=== PATIENT | female | born 1965 | race Caucasian/White ===

== ENCOUNTER 2023-04-07 09:26 | Outpatient (OUT) | payer OTHER, SELFPAY ==
--- NOTE | 2023-04-07 09:31 | CT_ITS ---
The [address] [address] Patient Name: JUNIOR ASENCIO MRN: [id number] date: 1965 Sex: F Assigned Patient Location: CT Current Patient Location: CT Accession/Order Number: [id number] Exam Date: 04/07/2023 09:38 Report Date: 04/07/2023 15:26 At the request of: MOOKIE LAGOS Procedure: CT lung screening low-dose EXAMINATION: CT lung screening low-dose HISTORY: Nicotine Dependence F17.210 COMPARISON: No relevant comparison available. TECHNIQUE: Axial, Coronal, and Sagittal images were created without the administration of IV contrast material. Dose reduction techniques were achieved by using automated exposure control and/or adjustment of mA and/or kV according to patient size and/or use of iterative reconstruction technique. FINDINGS: LUNGS: Several areas demonstrate collections of numerous 2-3 mm round nodular opacities, most likely alveolar infiltrates. Mild emphysematous changes bilaterally. Trace amount of bronchiectasis and mucous plugging within right middle lobe and left lower lobe medial basilar segment. PLEURA: No mass, effusion, or pneumothorax. VASCULATURE: No abnormality. EUSEBIA: Minimal adenopathy. MEDIASTINUM: Minimal adenopathy. CARDIAC: No enlargement, pericardial thickening, or significant calcification. AORTA: No aneurysm or dissection. CHEST WALL: No mass or axillary adenopathy BONES: No bone lesion or fracture. LIMITED ABDOMEN: No suspicious findings. Limited images of the upper abdomen. OTHER: Negative. CT/CT lung screening low-dose IMPRESSION: 1. Lung-RADS Category 3- Probably benign. Probably benign finding(s)- short term follow up suggested; includes nodules with a low likelihood of becoming a clinically active cancer. Six month LDCT. 2. Suspect mild diffuse bilateral pulmonary infiltrates/infectious etiology, and likely mild reactive lymphadenopathy. Electronically authenticated by: RUTH BELTRAN Date: 04/07/2023 15:26
== END 2023-04-07 09:27 | disposition home or self-care (01) ==
LOC: CT 09:26
PROVIDERS: PCP Family Medicine; Visit Provider Family Medicine
DX: F17.210 Nicotine dependence, cigarettes, uncomplicated (principal)
CPT/HCPCS: 71271

== ENCOUNTER 2023-11-13 09:05 | Outpatient (OUT) | payer OTHER, SELFPAY ==
--- NOTE | 2023-11-13 09:09 | XR_ITS ---
The [address] [address] Patient Name: JUNIOR ASENCIO MRN: [id number] date: 1965 Sex: F Assigned Patient Location: [facility] Current Patient Location: [facility] Accession/Order Number: [id number] Exam Date: 11/13/2023 09:22 Report Date: 11/13/2023 10:04 At the request of: MOOKIE LAGOS Procedure: XR chest 2V PROCEDURE: XR chest 2V DATE: 11/13/2023 8:22 AM CDT COMPARISONS: Chest CT from 04/07/2023. Chest x-ray from 05/07/2022 CLINICAL INDICATION: 57 years Female Bronchitis FINDINGS: The cardiomediastinal silhouette and pulmonary vasculature are within normal limits. There are a few scattered patchy areas of increased interstitial markings and slight scattered diffuse increased interstitial markings likely representing chronic lung changes. These findings are best seen in the upper lateral right lung and the upper medial left lung. There is no evidence of pleural effusion or pneumothorax. XR/XR chest 2V IMPRESSION: Findings most consistent with some scattered chronic lung changes. No consolidating infiltrates to suggest pneumonia. Stable chest. Electronically authenticated by: THA TRAVIS Date: 11/13/2023 10:04
== END 2023-11-13 09:06 | disposition home or self-care (01) ==
PROVIDERS: PCP Family Medicine; Visit Provider Family Medicine
DX: J40 Bronchitis, not specified as acute or chronic (principal)
CPT/HCPCS: 71046

== ENCOUNTER 2023-12-29 14:56 | Outpatient (OUT) | payer OTHER, SELFPAY ==
--- NOTE | 2023-12-29 14:59 | CT_ITS ---
The [address] [address] Patient Name: JUNIOR ASENCIO MRN: [id number] date: 1965 Sex: F Assigned Patient Location: CT Current Patient Location: Accession/Order Number: [id number] Exam Date: 12/29/2023 15:03 Report Date: 12/30/2023 10:30 At the request of: MOOKIE LAGOS Procedure: CT chest wo con EXAMINATION: CT chest wo con, 12/29/2023 3:03 PM EDT HISTORY: multiple pulmonary nodules R91.8 COMPARISON: 04/07/2023. TECHNIQUE: CT scan of the chest was performed without IV contrast. CT dose reduction technique was used, including Automated Exposure Control. FINDINGS: CORONARY ARTERIES: Coronary calcifications are mild. Heart size is normal. No pericardial effusion. Normal thoracic vasculature. No thoracic lymphadenopathy. Central tracheobronchial tree is patent. No pleural effusion or pneumothorax. 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 Scattered areas of endobronchial mucous plugging similar to prior. Focal traction bronchiectasis and some scattered mucus plugging in the right middle lobe is again seen. Bones and soft tissues: No suspicious bone findings. Degenerative changes throughout the thoracic spine. Partially imaged upper abdomen: Limited. Fat-containing adenoma left adrenal gland, measuring [address]/CT chest wo con IMPRESSION: Findings of chronic and waxing/waning infectious bronchiolitis throughout the lungs, and some scattered endobronchial mucous plugging, overall not significantly changed. No suspicious pulmonary nodule by size criteria. Lung RADS 2 Electronically authenticated by: TAMARA ROUSSEAU Date: 12/30/2023 10:30
== END 2023-12-29 14:57 | disposition home or self-care (01) ==
LOC: CT 14:56
PROVIDERS: PCP Family Medicine; Visit Provider Family Medicine
DX: R91.8 Other nonspecific abnormal finding of lung field (principal); J84.89 Other specified interstitial pulmonary diseases
CPT/HCPCS: 71250

== ENCOUNTER 2024-03-31 09:03 | Outpatient (OUT) | payer OTHER, SELFPAY ==
--- OUTSIDE RECORDS SUMMARY | 2024-03-31 09:12 | XMS_ITS | CCD ---
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 Name Role Phone TREMAINE ., DR GARG Admitting Unavailable TREMAINE ., DR GARG Attending Unavailable HOUSE, DR AQUINO Primary Care Unavailable [place], DR TAMMIE Freedman Consulting Unavailable TREMAINE ., DR GARG Consulting Unavailable Gabriella, Demond Consulting Unavailable FRANKLIN, DR AQUINO Admitting Unavailable HOUSE, DR AQUINO Attending Unavailable HOUSE, DR AQUINO Primary Care Unavailable [place], DR TAMMIE Freedman Consulting Unavailable HOUSE, DR AQUINO Consulting Unavailable HOUSE, DR AQUINO Admitting Unavailable HOUSE, DR AQUINO Attending Unavailable HOUSE, DR AQUINO Primary Care Unavailable FRANKLIN, DR AQUINO Consulting Unavailable TREMAINE ., DR GARG Admitting Unavailable TREMAINE ., DR GARG Attending Unavailable HOUSE, DR AQUINO Primary Care Unavailable TREMAINE ., DR GARG Consulting Unavailable House, Macho Rangel Primary Care Physician PALAK RUDD Attending Unavailable PALAK RUDD Attending Unavailable Forest TORRES Referring Unavailable Carley Jackson Unavailable Beverley Anaya Unavailable Allergies Allergy Classification Reported Allergen(s) Allergy Type Date of Onset Reaction(s) Facility (1 source) No Known Medication Allergies; Translations: [No Known Medication Allergies] Propensity to adverse reactions (disorder) [facility] Repository Medications Current Medications Medication Drug Class(es) Dates Sig (Normalized) Sig (Original) ARIPiprazole 10 mg oral tablet (9 sources) Atypical Antipsychotic Start: 11-12-2023 End: 03-03-2024 take 1 tablet by mouth once daily Aripiprazole (Abilify) 10 mg tablet Active 10 MG PO Daily 90 March 03, 2024 10:58am Start: 10-30-2022 aripiprazole 1 0 mg Tab Refills(s) 0 Start Date: 10/30/22 Status: Ordered Calcium 1200 8978-7626 MG-UNIT (4 sources) take 1 tablet by mouth once daily Calcium 1200 5923-2538 MG-UNIT 1 tablet Orally Once a day Active Cpap (Continuous Positive Airway Pressure) (2 sources) Start: 03-24-2024 Cpap (Continuous Positive Airway Pressure) Active 0 .Route March 24, 2024 9:46am As directed [facility] Start: 03-24-2024 End: 03-24-2024 Cpap (Continuous Positive rway Pressure) Discontinued 0 .Route March 24, 2024 12:00am March 24, 2024 9:46am As directed dextromethorphan hydrobromide 15 mg / guaiFENesin 400 mg / pseudoephedrine hydrochloride 60 mg oral tablet (1 source) alpha-Adrenergic Agonist, Uncompetitive I-ekmhnv-H-aspartate Receptor Antagonist, Sigma-1 Agonist Start: 06-04-2023 take 4 tablets by mouth every twenty-four hours as needed Capmist DM 60-15-400 MG as needed Orally every 4-6 hours as needed, max 4 tablets in 24 hours for 5 days May, Active etodolac 500 mg oral tablet (2 sources) Nonsteroidal Anti-inflammatory Drug Start: 10-30-2022 etodolac 500 mg Tab Refills(s) 0 Start Date: 10/30/22 Status: Ordered levoFLOXacin 500 mg oral tablet (2 sources) Quinolone Antimicrobial Start: 10-30-2022 levofloxacin 500 mg Tab Refills(s) 0 Start Date: 10/30/22 Status: Ordered methylPREDNISolone 4 mg tab dosepak (2 sources) Start: 10-30-2022 methylPREDNISolone 4 mg tab dosepak Refills(s) 0 Start Date: 10/30/22 Status: Ordered 24 hr oxybutynin chloride 5 mg extended release oral tablet (1 source) Cholinergic Muscarinic Antagonist Start: 11-17-2022 take 1 tablet by mouth once daily oxybutynin 5 mg ER Tab 5 mg = 1 tab(s), Oral, Daily, # 30 tab(s), Refills(s) 0, [facility]acy: [id number], 172, cm, 11/05/22 10:05:00 EDT, Height/Length Dosing, 80, kg, 11/05/22 10:05:00 EDT, Weight Dosing Start Date: 11/17/22 Status: Ordered predniSONE 20 mg oral tablet (1 source) Start: 06-04-2023 take 1 tablet by mouth every twelve hours prednisone 20 MG 1 tablet Orally BID for 5 May, Active vilazodone hydrochloride 20 mg oral tablet (10 sources) Start: 11-12-2023 End: 03-03-2024 take 20 mg by mouth once daily at mealtime Vilazodone Active 20 MG PO Daily March 03, 2024 10:58am must administer with a meal/food Start: 10-30-2022 vilazodone 10 mg oral tablet Refills(s) 0 Start Date: 10/30/22 Status: Ordered take 1 tablet by bam th every twenty-four hours Vilazodone HCl 20 MG 1 tablet with food Orally Once a day for 30 days Active Vit U01-Lwtxpiqofe-Wfqw-Rpjt (4 sources) Vit T54-Xjpqtzpt zg-Ddqu-Cvuk Active Completed/Discontinued Medications Medication Drug Class(es) Dates Sig (Normalized) Sig (Original) Azithromycin (1 source) Macrolide Antimicrobial Start: 4 End: 4 Azithromycin Discontinued 0 PO .COMPLEX November 13, 2023 12:00am March 23, 2024 1:58pm For 250 mg dose pack: take 500 mg today (day 1), then 250 mg for 4 days (days 2-5) PO Ketorolac (4 sources) Nonsteroidal Anti-inflammatory Drug, Cyclooxygenase Inhibitor Start: 6 Toradol per 15 mg Jun, 60 mg Methylprednisolone (5 sources) Corticosteroid Start: 4 End: 4 Methylprednisolone Discontinued 0 PO per package directions November 13, 2023 12:00am March 23, 2024 1:58pm PO PER PKG DIR for 6 days Start: 05-02-2014 Depo-Medrol 80 mg Apr, 80 mg 24 hr tolterodine tartrate 4 mg extended release oral capsule (6 sources) Cholinergic Muscarinic Antagonist Start: 11-12-2023 End: 03-24-2024 take 1 capsule by mouth once daily Tolterodine Discontinued 1 CAP PO Daily November 12, 2023 12:00am March 24, 2024 9:51am [employer] capsule Orally Once a day; Note: Source Status: Taking; Provider: Héctor Lowery ( ) take 1 capsule by [facility] every twenty-four hours Tolterodine Tartrate ER 4 MG 1 capsule Orally Once a day Active Problems Active Problems Problem Classification Problem Date Documented Da te Episodic/Chronic Chronic obstructive pulmonary disease and bronchiectasis (2 sources) Bronchiectasis; Translations: [Bronchiectasis, uncomplicated] 03-24-2024 Chronic Chronic obstructive pulmonary disease and bronchiectasis (3 sources) Bronchitis; Translations: [Bronchitis, not specified as acute or chronic] 11-13-2023 Episodic Essential hypertension (5 sources) Essential hypertension; Translations: [Essential (primary) hypertension] Chronic Genitourinary symptoms and ill-defined conditions (4 sources) Unspecified urinary incontinence; Translations: [Urinary incontinence] Onset: 11-05-2022 Chronic Immunizations and screening for infectious disease (1 source) Encounter for screening for human papillomavirus (HPV); Translations: [ENC SCREENING HUMAN PAPILLOMAVIRUS] Onset: 10-02-2022 Episodic Mood disorders (4 sources) Depressive disorder; Translations: [Bipolar disorder, unspecified] 11-05-2022 Chronic Other bone disease and musculoskeletal deformities (1 source) Other specified disorders of bone density and structure, unspecified site; Translations: [OTH D/O BONE DEN STRUCT UNS SITE] Onset: 10-14-2022 Episodic Other lower respiratory disease (2 sources) Shortness of breath; Translations: [Shortness of breath] Onset: 05-11-2022 03-24-2024 Episodic Other lower respiratory disease (2 sources) Multiple nodules of lung; Translations: [Other nonspecific abnormal finding of lung field] 11-10-2023 Episodic Other lower respiratory disease (1 source) Dyspnea; Translations: [Shortness of breath] 03-24-2024 Episodic Other lower respiratory disease (1 source) Abnormal findings on diagnostic imaging of lung; Translations: [Other nonspecific abnormal finding of lung field] 03-24-2024 Episodic Other lower respiratory disease (1 source) Other nonspecific abnormal finding of lung field; Translations: [Other nonspecific abnormal finding of lung field] 03-24-2024 Episodic Other screening for suspected conditions (not mental disorders or infectious disease) (1 source) CT of chest abnormal; Translations: [Abnormal findings on diagnostic imaging of other specified body structures] 01-15-2024 Chronic Other screening for suspected conditions (not mental disorders or infectious disease) (5 sources) Encounter for screening mammogram for malignant neoplasm of breast; Translations: [Encounter for screening for malignant neoplasm of cervix] Onset: 10-01-2022 Episodic Residual codes; unclassified (4 sources) Asymptomatic menopausal state; Translations: [ASYMPTOMATIC MENOPAUSAL STATE] Onset: 10-09-2022 Episodic Residual codes; unclassified (1 source) Family history of malignant neoplasm of breast; Translations: [FAMILY HX MALIG NEOPLASM OF BREAST] Onset: 10-14-2022 Episodic Substance-related disorders (9 sources) Nicotine dependence; Translations: [Nicotine dependence, cigarettes, uncomplicated] Chronic Substance-related disorders (2 sources) Marijuana user; Translations: [Cannabis use, unspecified, uncomplicated] 03-24-2024 Episodic Unclassified (3 sources) COUGH, UNSPECIFIED; Translations: [COUGH, UNSPECIFIED] Onset: 05-11-2022 Past or Other Problems Problem Classification Problem Date Documented Da te Episodic/Chronic Unclassified (1 source) COUGH, UNSPECIFIED; Translations: [COUGH, UNSPECIFIED] Onset: 05-07-2022 Unclassified (1 source) Contact with and (suspected) exposure to covid-19 Z20.822 Viral infection (1 source) COVID-19 Results Test Name Value Interpretation Reference Range Facility COVID/FLU RT-PCRon SARS-CoV-2 (COVID-19) RNA DAMARI+probe Ql (Unsp spec) Positive [facility] [employer] Other COVID/FLU RT-PCR Negative [facility] [employer] Other Quick Strepon 06-04-2023 S. pyogenes Org specific cx Ql (Throat) Negative [facility] Other Quick Strep [facility] [employer] Other Urology Office/Clinic Noteon 11-17-2022 Urology Office/Clinic Note Chief Complaint Pt is here for urinary leaking HPI Staff Tita is a 56 y.o. female new patient here for urinary leakage. Referred by Dr Forest Torres. Dysuria: denies Incomplete bladder emptying: denies Hematuria: denies Frequency: yes Urgency: yes Nocturia: 1x a night Stream: steady stream Leaking: yes Post void dripping: denies Wearing pads/ Depends: yes wears pads, changes 3-4x a day Urge incontinence: yes Stress incontinence: yes cough/sneeze Incontinence without Sensory Awareness: denies Abdominal pain: denies Flank pain: denies Sexual complaints: _ History of Present Illness staff HPI reviewed and agree. Review of Systems PHQ Score Initial Depression Screen Score: 0 no fever, chills, malaise, myalgia. no rash/lesions. no chest pain, palpitations, or SOB. no abdominal pain, nausea, vomiting. no unilateral calf swelling, redness, pain Physical Exam Vitals & Measurements HR: 67(Peripheral) BP: 132/82 HT: 68 in HT: 172 cm WT: 80 kg WT: 176 lb BMI: 27.04 General: nontoxic, NAD Mouth: moist mucosa Lungs: normal respiratory effort Cardio: regular rate, good distal perfusion Abdomen: nondistended, no suprapubic distention or tenderness, no CVA tenderness Neurologic: Grossly normal Skin: No rashes or suspicious lesions Assessment/Plan 1. Mixed stress and urge urinary incontinence (N39.46: Mixed incontinence) UA completed in office today shows no microhematuria or signs of infection. PVR 51ml. I went over the options for treatment for KRYSTYNA with the patient. We discussed conservative treatment with pelvic floor exercises with or without a physical therapist. We also discussed vaginal inserts such as anti-incontinence pessaries and the Impressa tampon. Definitive treatment including urethral bulking agents and mid-urethral sling were discussed as these are options offered by my colleagues. Details of each procedure, success rates, recovery/downtime expectations, and risks were discussed at length. We also spoke briefly about traditional slings with autologous fascia. This is also a very successful procedure without the use of synthetic mesh. It does however require a significantly longer recovery period and has a slightly higher risk of voiding dysfunction. And pt understands that it is not offered by our physicians so she would need referred elsewhere. Based on the above discussion the patient prefers to attempt home PFPT exercises. I went over the options for treatment for UUI with the patient. We discussed conservative management with avoidance of bladder irritants. Discussed medication management including anticholinergics and Myrbetriq. Myrbetriq is often preferable due to lower side effect profile, but most insurances don't cover it without trying anticholinergics first. Therefore we will start with Oxybutynin. Pt will start with lowest daily dose and slowly titrate up as pt tolerates. I explained the most common side effects are dry mouth, dry eyes, and constipation. We discussed OTC options to help with these side effects. Pt will stop medication and call office if side effects become intolerable. We did discuss that there is a documented potential side effect of mental status changes/confusion in the elderly, but that this risk is quite low. Pt and I agree that potential benefit outweigh risk at this time. OXYBUTYNIN 5MG ER pt will call in 1 month w update regarding side effects/dose. Orders: oxybutynin, 5 mg = 1 tab(s), Oral, Daily, # 30 tab(s), Refills(s) 0, Pharmacy: [facility] #[id number], 172, cm, 11/05/22 10:05:00 EDT, Height/Length Dosing, 80, kg, 11/05/22 10:05:00 EDT, Weight Dosing f/u 2 mos Follow-up No qualifying data available 2 mos Problem List/Past Medical History Ongoing Depression Mixed stress and urge urinary incontinence Historical Urinary leakage Procedure/Surgical History Cholecystectomy. Medications aripiprazole 10 mg Tab etodolac 500 mg Tab levofloxacin 500 mg Tab methylPREDNISolone 4 mg tab dosepak oxybutynin 5 mg ER Tab, 5 mg= 1 tab(s), Oral, Daily vilazodone 10 mg oral tablet Allergies No Known Medication Allergies Social History Tobacco 10 or more cigarettes (1/2 pack or more)/day in last 30 days Tobacco Use:. Never Smokeless Tobacco Use:. Cigarettes, Yes, 11/05/2022 Immunizations Vaccine Date Status SARS-CoV-2 (COVID-19) mRNA BNT-162b2 vax 09/19/2021 Recorded SARS-CoV-2 (COVID-19) mRNA BNT-162b2 vax 01/11/2021 Recorded SARS-CoV-2 (COVID-19) mRNA BNT-162b2 vax 12/21/2020 Recorded Normal [facility] Comment on above: Result Comment: Elec tronically Signed By: PALAK RUDD PA-C\arielle\Date and Time Signed: 11/17/22 09:41 EDT MG MAMM SCREEN 3D NORMAN CADon 10-09-2022 MG MAMM SCREEN 3D NORMAN CAD Patient: TITA MITCHELL Exam Date: 10/09/2022 : 1965 Gender:F Ordering : DR FOREST TORRES . Admission #: [id number] Family : Order #: [id number] CLICK HERE TO VIEW EXAM RADIOLOGY REPORT PROCEDURE: MAMMOGRAM SCREENING 3D BILATERAL CAD COMPARISON: MG MAMM SCREEN 3D NORMAN CAD, 04/12/2021. MG MAMM SCREEN NORMAN W CAD, 10/10/2016. INDICATIONS: Screening mammography Calculator Name NCI Breast Cancer Risk Assessment Tool 5 Year Breast Cancer Risk 2.20% Lifetime Breast Cancer Risk 15.40% Personal Breast Cancer No Personal Ovarian Cancer No Treatments None Family Cancers Mother with breast cancer at age 60. LOCATION: [facility] BREAST COMPOSITION: Heterogeneously dense,which may obscure small masses. FINDINGS: DIAGNOSTIC CATEGORY 2--BENIGN FINDING. NO CHANGE FROM COMPARISON. Scattered benign-appearing nodules are present. Scattered benign-appearing calcifications are present. Scattered benign-appearing lymph nodes are present. RIGHT BREAST: No significant suspicious finding. LEFT BREAST: No significant suspicious finding. RECOMMENDATIONS: ROUTINE MAMMOGRAM AND CLINICAL EVALUATION IN 12 MONTHS. PLEASE NOTE: A NORMAL MAMMOGRAM DOES NOT EXCLUDE THE POSSIBILITY OF BREAST CANCER. A CLINICALLY SUSPICIOUS PALPABLE LUMP SHOULD BE BIOPSIED. Dictated by: Tammie Hardin MD on 10/09/2022 at 10:39 Approved by: Tammie Hardin MD on 10/09/2022 at 10:44 Normal [facility] XR DEXA BONE DENSITYon 10-09 XR DEXA BONE DENSITY EXAMINATION: XR DEXA BONE DENSITY, 10/09/2022 9:38 AM EST HISTORY: Menopause present COMPARISON: DEXA bone densitometry 10/09/2022 TECHNIQUE: Dual-energy X-ray absorptiometry (DEXA) bone density study performed for the axial skeleton. FINDINGS: SPINE ANALYSIS: Average bone mineral density is 1.233 g/cm2. T-score (standard deviation relative to young adult mean): 0.3 . +3.6% change since prior study. HIP ANALYSIS: Lowest bone mineral density is within the left femoral neck, 0.820 g/cm2. T-score (standard deviation relative to young adult mean): -1.6 . -8.6% change since prior study. IMPRESSION: [employer] Organization Classification: Osteopenia - Moderate Fracture Risk Electronically authenticated by: DEMOND BELTRAN Date: 2022-10-09 10:49 Normal [facility] PAP ACOG PANEL 2: 30 to 65on 10-08-2022 . . Normal [facility] Comment on above: Result Comment: Perf ormed at: WB Performed By: #### [id number] #### [facility] [address] [place] [address] Dr. Carol Montaño Age Gdln ACOG Testing 30-65 Normal [facility] Comment on above: Performed By: #### [id number] #### [facility] [address] [address] [address] Carol Montaño DIAGNOSIS: Comment Normal [facility] Comment on above: Result Comment: NEGA TIVE FOR INTRAEPITHELIAL LESION OR MALIGNANCY. Performed at: WB Performed By: #### [id number] #### [facility] [address] [place] [address] Dr. Carol Montaño HPV Aptima Negative Normal Negative [facility] Comment on above: Result Comment: This nucleic acid amplification test detects fourteen high-risk HPV types (16,18,31,33,35,39,45,51,52,56,58,59,66,68) without differentiation. Performed at: =G Performed By: #### [id number] #### [facility] [address] [place] [address] Dr. Carol Montaño HPV Genotype Reflex Comment [facility] Comment on above: Result Comment: Crit eria not met, HPV Genotype not performed. Performed at: WB Performed By: #### [id number] #### [facility] [address] [place] [address] Dr. Carol Montaño Methodology: Comment Normal [facility] Comment on above: Result Comment: This liquid based ThinPrep(R) pap test was screened with the use of an image guided system. Performed at: WB Performed By: #### [id number] #### [facility] [address] [place] [address] Dr. Carol Montaño Note: Comment Normal [facility] Comment on above: Result Comment: The Pap smear is a screening test designed to aid in the detection of premalignant and malignant conditions of the uterine cervix. It is not a diagnostic procedure and should not be used as the sole means of detecting cervical cancer. Both false-positive and false-negative reports do occur. . Performed at: WB Performed By: #### [id number] #### [facility] [address] [place] [address] Dr. Carol Montaño Performed by: Comment Normal [facility] Comment on above: Result Comment: Nel Tucker, Wound Care Coordinator (ASCP) Performed at: WB Performed By: #### [id number] #### [facility] [address] [place] [address] Dr. Carol Montaño Specimen adequacy: Comment Normal [facility] Comment on above: Result Comment: Sati sfactory for evaluation. Endocervical and/or squamous metaplastic cells (endocervical component) are present. Performed at: WB Performed By: #### [id number] #### [facility] [address] [place] [address] Dr. Carol Montaño CBC AUTO DIFFon 07-07-2022 BASO # 0.1 103/ul Normal 0.0-0.1 [facility] Comment on above: Performed By: #### C BC #### [facility] [address] [place] [address] Dr. Carol Montaño Basophils/100 WBC (Bld) 1.0 % Normal 0.2-2.0 [facility] Comment on above: Performed By: #### C BC #### [facility] [address] [place] [address] Dr. Carol Montaño EO # 0.5 103/ul Normal 0.0-0.7 [facility] Comment on above: Performed By: #### C BC #### [facility] [address] [place] [address] Dr. Carol Montaño Eosinophils/100 WBC (Bld) 5.7 % Normal 0.9-7.0 [facility] Comment on above: Performed By: #### C BC #### [facility] [address] [place] [address] Dr. Carol Montaño Erythrocyte distribution width (RBC) [Ratio] 12.5 % Normal 11.0-15.0 [facility] Comment on above: Performed By: #### C BC #### [facility] [address] [place] [address] Dr. Carol Montaño Hematocrit (Bld) [Volume fraction] 46.7 % Normal 36.0-48.0 [facility] Comment on above: Performed By: #### C BC #### [facility] [address] [place] [address] Dr. Carol Montaño Hemoglobin (Bld) [Mass/Vol] 15.5 g/dL Normal 12.0-16.0 [facility] Comment on above: Performed By: #### C BC #### [facility] [address] [place] [address] Dr. Carol Montaño IG # 0.03 10e3/ul Normal 0.00-0.03 [facility] Comment on above: Performed By: #### C BC #### [facility] [address] [place] [address] Dr. Carol Montaoñ IG % 0.4 % Normal 0.0-0.5 [facility] Comment on above: Performed By: #### C BC #### [facility] [address] [place] [address] Dr. Carol Mnotaño LYMPH # 3.2 103/ul Normal 1.2-3.8 [facility] Comment on above: Performed By: #### C BC #### [facility] [address] [place] [address] Dr. Carol Montaño Lymphocytes/100 WBC (Bld) 38.8 % Normal 20.5-60.0 [facility] Comment on above: Performed By: #### C BC #### [facility] [address] [place] [address] Dr. Carol Montaño MANUAL DIFF REQ NO Normal [facility] Comment on above: Performed By: #### C BC #### [facility] [address] [place] [address] Dr. Carol Montaño MCH (RBC) [Entitic mass] 30.5 pg Normal 26.7-34.0 [facility] Comment on above: Performed By: #### C BC #### [facility] [address] [address] [address] Carol Montaño MCHC (RBC) [Mass/Vol] 33.2 g/dL Normal 29.9-35.2 [facility] Comment on above: Performed By: #### C BC #### [facility] [address] [address] [address] Carol Montaño MCV (RBC) [Entitic vol] 91.7 fL Normal 81.0-99.0 [facility] Comment on above: Performed By: #### C BC #### [facility] [address] [place] [address] Dr. Carol Montaño MONO # 0.5 103/ul Normal 0.3-0.8 [facility] Comment on above: Performed By: #### C BC #### [facility] [address] [place] [address] Dr. Carol Montaño Monocytes/100 WBC (Bld) 6.6 % Normal 1.7-12.0 [facility] Comment on above: Performed By: #### C BC #### [facility] [address] [place] [address] Dr. Carol Montaño NEUT # 3.9 103/ul Normal 1.4-6.5 [facility] Comment on above: Performed By: #### C BC #### [facility] [address] [place] [address] Dr. Carol Montaño Neutrophils/100 WBC (Bld) 47.5 % Normal 43.0-75.0 [facility] Comment on above: Performed By: #### C BC #### [facility] [address] [address] [address] Carol Montaño Platelet mean volume (Bld) [Entitic vol] 9.9 fL Normal 9.5-13.5 [facility] Comment on above: Performed By: #### C BC #### [facility] [address] [place] [address] Dr. Carol Montaño PLT 324 103/ul Normal 150-450 [facility] Comment on above: Performed By: #### C BC #### [facility] [address] [address] [address] Carol Montaño RBC 5.09 106/ul Normal 4.20-5.40 [facility] Comment on above: Performed By: #### C BC #### [facility] [address] [address] [address] Carol Montaño WBC 8.2 103/ul Normal 4.0-11.0 [facility] Comment on above: Performed By: #### C BC #### [facility] [address] [place] [address] Dr. Carol Montaño LIPID PROFILEon 07-07-2022 CHOL-HDL RATIO NORM SEE BELOW Normal [facility] Comment on above: Result Comment: 3.3 - 4.4 LOW RISK 4.4 - 7.1 AVERAGE RISK 7.1 - 11.0 MODERATE RISK >11.0 HIGH RISK Performed By: #### C MP, LIPID, T4, TSH #### [facility] [address] [address] [address] Carol Montaño Cholesterol [Mass/Vol] 233 mg/dL Critically high <=200 [facility] Comment on above: Performed By: #### C MP, LIPID, T4, TSH #### [facility] [address] [place] [address] Dr. Carol Montaño Cholesterol in HDL [Mass/Vol] 61 mg/dL Critically high 40-60 [facility] Comment on above: Performed By: #### C MP, LIPID, T4, TSH #### [facility] [address] [place] [address] Dr. Carol Montaño Cholesterol in LDL [Mass/Vol] 154.8 mg/dL Normal [facility] Comment on above: Performed By: #### C MP, LIPID, T4, TSH #### [facility] [address] [place] [address] Dr. Carol Montaño Cholesterol.total /Cholesterol in HDL [Mass ratio] 3.8 {ratio} Normal [facility] Comment on above: Performed By: #### C MP, LIPID, T4, TSH #### [facility] [address] [address] [address] Carol Montaño HDL NORMAL > or = 60 mg/dl - LO W CARDIOVASCULAR RISK <40 mg/dl - HIGH CARDIOVASCULAR RISK Normal [facility] Comment on above: Performed By: #### C MP, LIPID, T4, TSH #### [facility] [address] [address] [address] Carol Montaño LDL CALC NORMAL SEE BELOW Normal [facility] Comment on above: Result Comment: <100 mg/dl OPTIMAL 100 - 129 mg/dl NEAR OR ABOVE OPTIMAL 130 - 159 mg/dl BORDERLINE HIGH 160 - 189 mg/dl HIGH >190 mg/dl VERY HIGH Performed By: #### C MP, LIPID, T4, TSH #### [facility] [address] [place] [address] Dr. Carol Montaño Triglyceride [Mass/Vol] 86 mg/dL Normal <=150 [facility] Comment on above: Performed By: #### C MP, LIPID, T4, TSH #### [facility] [address] [place] [address] Dr. Carol Montaño VLDL CALC 17.2 mg/dL Normal [facility] Comment on above: Performed By: #### C MP, LIPID, T4, TSH #### [facility] [address] [place] [address] Dr. Carol Montaño PROF 14(COMP METB)on 022 Albumin [Mass/Vol] 3.9 g/dL Normal 3.4-5.0 [facility] Comment on above: Performed By: #### C MP, LIPID, T4, TSH #### [facility] [address] [place] [address] Dr. Carol Montaño Albumin/Globulin [Mass ratio] 1.2 {ratio} Normal [facility] Comment on above: Performed By: #### C MP, LIPID, T4, TSH #### [facility] [address] [place] [address] Dr. Carol Montaño ALP [Catalytic activity/Vol] 81 U/L Normal 46-116 [facility] Comment on above: Performed By: #### C MP, LIPID, T4, TSH #### [facility] [address] [address] [address] Carol Montaño ALT [Catalytic activity/Vol] 10 U/L Critically low 14-59 [facility] Comment on above: Performed By: #### C MP, LIPID, T4, TSH #### [facility] [address] [place] [address] Dr. Carol Montaño Anion gap [Moles/Vol] 8.8 mmol/L Normal [facility] Comment on above: Performed By: #### C MP, LIPID, T4, TSH #### [facility] [address] [place] [address] Dr. Carol Montaño AST [Catalytic activity/Vol] 16 U/L Normal 15-37 [facility] Comment on above: Performed By: #### C MP, LIPID, T4, TSH #### [facility] [address] [place] [address] Dr. Carol Montaño Bilirubin [Mass/Vol] 0.4 mg/dL Normal 0.2-1.0 [facility] Comment on above: Performed By: #### C MP, LIPID, T4, TSH #### [facility] [address] [place] [address] Dr. Carol Montaño Calcium [Mass/Vol] 9.4 mg/dL Normal 8.5-10.1 [facility] Comment on above: Performed By: #### C MP, LIPID, T4, TSH #### [facility] [address] [place] [address] Dr. Carol Montaño Chloride [Moles/Vol] 102 mmol/L Normal 98-107 [facility] Comment on above: Performed By: #### C MP, LIPID, T4, TSH #### [facility] [address] [place] [address] Dr. Carol Montaño CO2 [Moles/Vol] 31.1 mmol/L Normal 21.0-32.0 [facility] Comment on above: Performed By: #### C MP, LIPID, T4, TSH #### [facility] [address] [place] [address] Dr. Carol Montaño Creatinine [Mass/Vol] 0.74 mg/dL Normal 0.55-1.02 [facility] Comment on above: Performed By: #### C MP, LIPID, T4, TSH #### [facility] [address] [address] [address] Carol Montaño EGFR-AF [facility] >60 Normal >=60 [facility] Comment on above: Performed By: #### C MP, LIPID, T4, TSH #### [facility] [address] [address] [address] Carol Montaño EGFR-NON AF [facility] >60 Normal >=60 [facility] Comment on above: Performed By: #### C MP, LIPID, T4, TSH #### [facility] [address] [place] [address] Dr. Carol Montaño Globulin (S) [Mass/Vol] 3.2 g/dL Normal [facility] Comment on above: Performed By: #### C MP, LIPID, T4, TSH #### [facility] [address] [place] [address] Dr. Carol Montaño Glucose [Mass/Vol] 87 mg/dL Normal 74-106 [facility] Comment on above: Performed By: #### C MP, LIPID, T4, TSH #### [facility] [address] [place] [address] Dr. Carol Montaño Potassium [Moles/Vol] 3.9 mmol/L Normal 3.5-5.1 [facility] Comment on above: Performed By: #### C MP, LIPID, T4, TSH #### [facility] [address] [place] [address] Dr. Carol Montaño Protein [Mass/Vol] 7.1 g/dL Normal 6.4-8.2 [facility] Comment on above: Performed By: #### C MP, LIPID, T4, TSH #### [facility] [address] [place] [address] Dr. Carol Montaño Sodium [Moles/Vol] 138 mmol/L Normal 136-145 [facility] Comment on above: Performed By: #### C MP, LIPID, T4, TSH #### [facility] [address] [place] [address] Dr. Carol Montaño Urea nitrogen [Mass/Vol] 10.0 mg/dL Normal 7.0-18.0 [facility] Comment on above: Performed By: #### C MP, LIPID, T4, TSH #### [facility] [address] [address] [address] Carol Montaño Urea nitrogen/Creatini ne [Mass ratio] 13.5 mg/mg Normal [facility] Comment on above: Performed By: #### C MP, LIPID, T4, TSH #### [facility] [address] [address] [address] Carol Montaño T4on 07-07-2022 T4 [Mass/Vol] 7.10 ug/dL Normal 4.80-13.90 [facility] Comment on above: Performed By: #### C MP, LIPID, T4, TSH #### [facility] [address] [address] [address] Carol Montaño TSHon 07-07-2022 TSH 1.220 uIU/mL Normal 0.358-3.740 [facility] Comment on above: Performed By: #### C MP, LIPID, T4, TSH #### [facility] [address] [address] [address] Carol Montaño XR CHEST 2 Von 05-07-2022 XR CHEST 2 V EXAMINATION: XR CHES T 2 V HISTORY: Cough COMPARISON: 01/12/2019 TECHNIQUE: PA and lateral FINDINGS: LUNGS: No significant pulmonary parenchymal abnormalities. VASCULATURE: No increased pulmonary vasculature. PLEURA: No pneumothorax, effusion, or pleural thickening. CARDIAC: No cardiomegaly or cardiac silhouette abnormality. MEDIASTINUM: No visible mass or adenopathy. BONES: Mild degenerative disc disease and spondylosis without visible acute abnormalities. OTHER: Negative. IMPRESSION: No acute disease. Electronically authenticated by: TAMMIE HARDIN Date: 2022-05-07 10:26 Normal [facility] Vital Signs Date Time Vital Sign Value Performing Clinician Facility 03-24-2024 09:52-0400 Body height 175.[address] [facility] 03-24-2024 09:52-0400 Body mass index (BMI) [Ratio] 25.8 kg/m2 [facility] 03-24-2024 09:52-0400 Body temperature 97.9 [degF] [facility] 03-24-2024 09:52-0400 Body weight 79.[address] [facility] 03-24-2024 09:52-0400 Diastolic blood pressure 82 mm[Hg] [facility] 03-24-2024 09:52-0400 Heart rate 71 /min [facility] 03-24-2024 09:52-0400 Respiratory rate 20 /min [facility] 03-24-2024 09:52-0400 SaO2% (BldA) [Mass fraction] 96 % [facility] 03-24-2024 09:52-0400 Systolic blood pressure 124 mm[Hg] [facility] 11-13-2023 08:31-0400 Body height 175.[address] [facility] 11-13-2023 08:31-0400 Body mass index (BMI) [Ratio] 25.9 kg/m2 [facility] 11-13-2023 08:31-0400 Body temperature 98.6 [degF] [facility] 11-13-2023 08:31-0400 Body weight 79.[address] [facility] 11-13-2023 08:31-0400 Diastolic blood pressure 66 mm[Hg] [facility] 11-13-2023 08:31-0400 Heart rate 72 /min [facility] 11-13-2023 08:31-0400 SaO2% (BldA) [Mass fraction] 92 % [facility] 11-13-2023 08:31-0400 Systolic blood pressure 103 mm[Hg] [facility] 06-04-2023 09:30-0400 Body height 175.26 cm Beverley Anaya Other [facility] 06-04-2023 09:30-0400 Body mass index (BMI) [Ratio] 25.69 kg/m2 Beverley Anaya Other [facility] 06-04-2023 09:30-0400 Body temperature 98.3 [degF] Beverley Anaya Other [facility] Other 06-04-2023 09:30-0400 Body weight 78.93 kg Beverley Anaya Other [facility] Other 06-04-2023 09:30-0400 Diastolic blood pressure 99 mm[Hg] Beverley Anaya Other [facility] Other 06-04-2023 09:30-0400 Respiratory rate 18 /min Beverley Anaya Other [facility] Other 06-04-2023 09:30-0400 SaO2% (BldA) [Mass fraction] 97 % Beverley Héctor Other [facility] Other 06-04-2023 09:30-0400 Systolic blood pressure 127 mm[Hg] Bever[facility] Anaya Other [facility] Other 03-31-2023 11:00-0400 Body height 175.26 cm Carley Jackson Other [facility] Other 03-31-2023 11:00-0400 Body mass index (BMI) [Ratio] 26.73 kg/m2 Carley Jackson Other [facility] Other 03-31-2023 11:00-0400 Body weight 82.1 kg Carley Jackson Other [facility] Other 03-31-2023 11:00-0400 Diastolic blood pressure 74 mm[Hg] Carley Jackson Other [facility] Other 03-31-2023 11:00-0400 Systolic blood pressure 125 mm[Hg] Carley Jackson Other [facility] Other 11-05-2022 09:58-0400 Blood Pressure Location PALAK RUDD [facility] 11-05-2022 09:58-0400 Diastolic blood pressure 82 mm[Hg] PALAK RUDD [facility] 11-05-2022 09:58-0400 Heart rate 67 /min PALAK RUDD [facility] 11-05-2022 09:58-0400 Systolic blood pressure 132 mm[Hg] PALAK RUDD [facility] Encounters Encounter Date Encounter Type Care Provider Facility Start: 03-24-2024 End: 03-24-2024 ambulatory [facility] Work Phone: Start: 03-24-2024 End: 03-24-2024 Patient encounter procedure [facility] Physician [facility] Pulmonary Disease Work Phone: Start: 11-13-2023 End: 11-13-2023 ambulatory [facility] Work Phone: Start: 11-13-2023 End: 11-13-2023 Patient encounter procedure [facility] Physician [facility] Work Phone: Start: 06-04-2023 End: 06-04-2023 ambulatory Beverley Anaya Other [facility] Other Start: 06-04-2023 Office outpatient vi sit 25 minutes Beverley Anaya [facility] Start: 05-29-2023 End: 05-29-2023 ambulatory Carley Jackson Other [facility] Other Start: 05-29-2023 Telephone encounter Carley Jackson [facility] Start: 04-08-2023 End: 04-08-2023 ambulatory Carley Jackson Other [facility] Other Start: 04-08-2023 Telephone encounter Carley Jackson [facility] Start: 03-31-2023 End: 03-31-2023 ambulatory Carley Jackson Other [facility] Other Start: 03-31-2023 Office outpatient ne w 30 minutes Carley Jackson [facility] Start: 01-27-2023 End: 01-28-2023 ambulatory PALAK RUDD Facility:[facility] Start: 01-27-2023 End: 01-27-2023 Patient encounter procedure PALAK RUDD [facility] Start: 11-05-2022 End: 11-06-2022 ambulatory PALAK RUDD Facility:[facility] Start: 11-05-2022 End: 11-05-2022 Patient encounter procedure PALAK RUDD [facility] Start: 10-09-2022 End: 10-10-[address] FOREST OTRRES . Facility: Start: 10-02-2022 ambulatory PALAK RUDD Facility :[facility] Start: 10-01-2022 End: 10-01-[address] FOREST TORRES . Facility:[facility] Start: 07-10-2022 Encounter for genera l adult medical examination without abnormal findings DR MACHO JOSE [facility] Start: 07-07-2022 End: 07-08-[address] MACHO JOSE Facility:[facility] Start: 07-07-2022 End: 07-08-2022 Encounter for general adult medical examination without abnormal findings DR MACHO JOSE Facility:[facility] Start: 05-07-2022 End: 05-08-[address] MACHO JOSE Facility:[facility] Procedures Date Procedure Procedure Detail Performing Clinician Cholecystectomy PALAK STEPHENS Plan of Treatment Date Care Activity Detail Author CT Chest WO contrast [facility] XR Chest 2 Views [facility] Immunizations Immunization Date Immunization Notes Care Provider Fa amarity 09-19-2021 SARS-CoV-2 (COVID-19 ) mRNA BNT-162b2 vax PALAK RUDD [facility] 01-11-2021 SARS-CoV-2 (COVID-19 ) mRNA BNT-162b2 vax PALAK TOBIN [facility] 12-21-2020 SARS-CoV-2 (COVID-19 ) mRNA BNT-162b2 vax PALAK TOBIN [facility] Payers Date Payer Category Payer Unknown [id number] 2.16.84 [id number] 1965 Unknown [id number] 2.16.84 [id number] 1965 Unknown [id number] 2.16.84 [id number] 1965 Unknown [id number] 2.16.84 [id number] 1965 Unknown [id number] 2.16.8 [id number] 1965 Unknown [id number] 2.16.8 [id number] 1965 Unknown [id number] 2.16.8 [id number] 1957 Unknown [id number] Social History Date Type Detail Facility Start: 11-05-2022 Tobacco smoking status Heavy t obacco smoker (finding) [facility] Tobacco smoking status Never [facility] Sex Assigned At Female [facility] Start: 11-12-2023 End: 03-24-2024 Tobacco smoking status NHIS Smoker (finding) [facility] Start: 1965 Sex Assigned At Female F [facility] Functional Status Date Assessment Result Facility 11-05-2022 Functional Status N/A [facility] Evaluation note 06-04-2023 Note Date & Type Note Facility 06-04-2023 Evaluation note Encounter Date Diagnosis Assessment Notes May, Contact with and (suspected) exposure to covid-19 (ICD-10 - Z20.822) May, COVID-19 (ICD-10 - U07.1) COVID PCR test performed in office today. Influenza A/B PCR and rapid Strep test negative. Advised patient that test was positive. Instructed patient to isolate per CDC guidelines for 5 days from symptom onset, mask 5 days following. May return to work/activities outside home after isolation period as long as symptoms are improving and has been afebrile for 24 hours without use of antipyretic. Advised patient that treatment of COVID is with viral supportive care, rx of prednisone and Capmist, Tylenol as needed for body aches/fever. Increase fluids and rest. Encouraged use of cool mist humidifier. Follow-up with PCP to advise of positive result and further management. Immediate eval for SOB, difficulty, chest pain, fevers that do not break with antipyretic or any other concerning symptoms as reviewed on patient education handout. Patient verbalizes understanding and is agreeable to treatment plan. Patient left in stable condition [facility] Other Evaluation note 03-31-2023 Note Date & Type Note Facility 03-31-2023 Evaluation note Encounter Date Diagnosis Assessment Notes Mar, Depressed bipolar disorder (ICD-10 - F31.9) Pt requests to increase med. Previously on Cymbalta for many years. Notes improvement, but could be better prior to winter months. Will call if further issues. Mar, Nicotine dependence, cigarettes, uncomplicated (ICD-10 - F17.210) Agrees to LDCT for lung cancer screening. Mar, Essential (primary) hypertension (ICD-10 - I10) Chronic problem - stable on present med. [employer] Other Evaluation + Plan note Note Date & Type Note Facility Evaluation + Plan note No data available for this section [facility] Evaluation note Note Date & Type Note Facility Evaluation note No Information [employer] Other Evaluation note Note Date & Type Note Facility Evaluation note Diagnosis Onset Date Bronchitis acute [facility] Work Phone: Evaluation note Note Date & Type Note Facility Evaluation note Diagnosis Onset Date Abnormal finding on lung imaging acute Bronchiectasis, uncomplicated acute Cigarette nicotine dependenc e with nicotine-induced disorder acute Marijuana use acute Shortness of breath acute [facility] Work Phone: History general Narrative - Reported Note Date & Type Note Facility History general Narrative - Reported Type Medical History Depressed Medical History Bipolar 1 disorder Medical History Back pain Surgical History tonsillectomy Surgical History cholecystectomy Surgical History wisdom teeth [facility] [employer] Other Hospital Discharge instructions Note Date & Type Note Facility Hospital Discharge instructions No data available for this section [facility] [employer] Progress note Note Date & Type Note Facility Progress note No data available for this section [facility] [employer] Summary Purpose Family History Relationship Condition Age at Onset Recorded Date/T zarina father Unknown Not Specified Unknown Relationship Condition Age at Onset Recorded Date/T zarina father Unknown mother Unknown Advance Directives Advance Directive Response Recorded Date/ Time Advance Directives No November 12 024 8:30am Chief Complaint and Reason for Visit Chief Complaint Cough, SOB Reason for Visit Bronchitis Chief Complaint Ref: M Jackson- Pulmon jen Nodules Reason for Visit Abnormal finding on lung imaging Bronchiectasis, uncomplicated Cigarette nicotine dependence with nicotine-induced disorder Marijuana use Shortness of breath Additional Source Comments INFORMATION SOURCE (unrecogn ized section and content) DATE CREATED AUTHOR 10/15/2022 [facility] DATE CREATED AUTHOR 'S ORGANIZ ATION 02/01/2023 [facility] Patient Care team informatio n (unrecognized section and content) Team Status: Active Member Role Status Dates Carley Jackson MD Primary Care Provider Active Team Status: Inactive Member Role Status Dates Carley Jackson MD Primary Care Provide r, Attending Provider Active Start: November 13, 2023 End: November 13, 2023 Team Status: Inactive Member Role Status Dates Carley Jackson MD Primary Care Provider Active Start: March 24, 2024 End: March 24, 2024 Alejandro Posey DO Attending Provider Active St art: March 24, 2024 End: March 24, 2024 [facility] Active Start : March 24, 2024 End: March 24, 2024 REASON FOR VISIT (unrecogniz ed section and content) establish - dr jose ptCT re sultmessagebody aches, headaches, chills, congestion Goals (unrecognized section and content) Goals may be documented in a n alternate section FOR RECORDS PERTAINING TO PATIENTS WHO ARE OR HAVE BEEN ENROLLED IN A CHEMICAL DEPENDENCY/SUBSTANCEABUSE PROGRAM, SOME INFORMATION MAY BE OMITTED. This clinical summary was aggregated from multiple sources. Caution should be exercised in using it in the provision of clinical care. This summary normalizes information from multiple sources, and as a consequence, information in this document may materially change the coding, format and clinical context of patient data. In addition, data may be omitted in some cases. CLINICAL DECISIONS SHOULD BE BASED ON THE PRIMARY CLINICAL RECORDS. [facility]. provides no warranty or guarantee of the accuracy or completeness of information in this document.
[2024-03-31 09:14] LABS: Hemoglobin 17.2 g/dL (12.0-16.0)
[2024-03-31] MEDS: ALBUTEROL SULFATE 2.5 MG/3 ML VIAL NEB IH (10:00)
== END 2024-03-31 09:04 | disposition home or self-care (01) ==
PROVIDERS: PCP Family Medicine; Visit Provider Internal Medicine
DX: R06.02 Shortness of breath (principal); F17.219 Nicotine dependence, cigarettes, with unspecified nicotine-induced disorders
CPT/HCPCS: 36415; 85018; 94060; 94726; 94729

== ENCOUNTER 2024-07-15 08:00 | Outpatient (OUT) | payer OTHER, SELFPAY ==
--- NOTE | 2024-07-15 08:03 | MM_ITS ---
Patient Name: JUNIOR ASENCIO MR#: [id number] : 1965 Exam Date: 07/15/2024 Ordering Doctor: DR Carley Jackson M.D. RADIOLOGY REPORT PROCEDURE: MM TOMOSYNTHESIS SCREENING BI COMPARISON: MG MAMM SCREEN 3D [place] CAD, 10/09/2022. MG MAMM SCREEN 3D [place] CAD, 04/12/2021. MG MAMM SCREEN [place] W CAD, 10/10/2016. DIGITIZED_MAMMO, 11/05/2009. INDICATIONS: Screening Calculator Name NCI Breast Cancer Risk Assessment Tool 5 Year Breast Cancer Risk 2.40% Lifetime Breast Cancer Risk 14.80% Personal Breast Cancer No Personal Ovarian Cancer No Treatments None Family Cancers Mother with breast cancer at age 60. LOCATION: [facility] BREAST COMPOSITION: The breasts are heterogeneously dense,which may obscure small masses. FINDINGS: DIAGNOSTIC CATEGORY 2--BENIGN FINDING: RIGHT BREAST: No significant suspicious finding. Scattered benign-appearing calcifications are present. No significant change has occurred. LEFT BREAST: No significant suspicious finding. Scattered benign-appearing calcifications are present. No significant change has occurred. RECOMMENDATIONS: ROUTINE MAMMOGRAM AND CLINICAL EVALUATION IN 12 MONTHS. PLEASE NOTE: A NORMAL MAMMOGRAM DOES NOT EXCLUDE THE POSSIBILITY OF BREAST CANCER. A CLINICALLY SUSPICIOUS PALPABLE LUMP SHOULD BE BIOPSIED. Dictated by: Demond Quiroz M.D. on 07/15/2024 at 11:47 Approved by: Demond Quiroz M.D. on 07/15/2024 at 11:50
--- OUTSIDE RECORDS SUMMARY | 2024-07-15 08:04 | XMS_ITS | CCD ---
Author Organization [facility] Care Team Providers Care Overhead Distribution Engineer Name Role Phone TREMAINE ., DR GARG Admitting Unavailable TREMAINE ., DR GARG Attending Unavailable SALTERS, DR AQUINO Primary Care Unavailable LASHAWN, DR TAMMIE Freedman Consulting Unavailable TREMAINE ., DR GARG Consulting Unavailable Zieber, Demond Consulting Unavailable SALTERS, DR AQUINO Admitting Unavailable SALTERS, DR AQUINO Attending Unavailable SALTERS, DR AQUINO Primary Care Unavailable MILBRIDGE, DR TAMMIE Freedman Consulting Unavailable SALTERS, DR AQUINO Consulting Unavailable SALTERS, DR AQUINO Admitting Unavailable SALTERS, DR AQUINO Attending Unavailable HOUSE, DR AQUINO Primary Care Unavailable HOUSE, DR AQUINO Consulting Unavailable TREMAINE ., DR GARG Admitting Unavailable TREMAINE ., DR GARG Attending Unavailable HOUSE, DR AQUINO Primary Care Unavailable TREMAINE ., DR GARG Consulting Unavailable Reg, Macho Rangel Primary Care Physician PALAK RUDD Attending Unavailable PALAK RUDD Attending Unavailable Forest TORRES Referring Unavailable Carley Jackson Unavailable Beverley Anaya Unavailable Macho Arteaga MD Primary Care Provider SARINA PHAN Attending Unavailable Allergies Allergy Classification Reported Allergen(s) Allergy Type Date of Onset Reaction(s) Facility (1 source) No Known Medication Allergies; Translations: [No Known Medication Allergies] Propensity to adverse reactions (disorder) [facility] Repository Medications Current Medications Medication Drug Class(es) Dates Sig (Normalized) Sig (Original) ARIPiprazole 10 mg oral tablet (12 sources) Atypical Antipsychotic Start: 10-30-2022 End: 03-03-2024 take 1 tablet by mouth once daily Aripiprazole (Abilify) 10 mg tablet Active 10 MG PO Daily March 03, 2024 10:58am Calcium 1200 2596-1669 MG-UNIT (4 sources) take 1 tablet by mouth once daily Calcium 1200 5533-7744 MG-UNIT 1 tablet Orally Once a day Active calcium acetate 667 mg oral capsule (3 sources) calcium acetate (Phoslo) 667 MG capsule Take 1,334 mg by mouth in the morning and 1,334 mg at noon and 1,334 mg in the evening. Take with meals. Active Cpap (Continuous Positive Airway Pressure) (2 sources) Start: 03-24-2024 Cpap (Continuous Positive Airway Pressure) Active 0 .Route March 24, 2024 9:46am As directed [facility] Start: 03-24-2024 End: 03-24-2024 Cpap (Continuous Positive rway Pressure) Discontinued 0 .Route March 24, 2024 12:00am March 24, 2024 9:46am As directed dextromethorphan hydrobromide 15 mg / guaiFENesin 400 mg / pseudoephedrine hydrochloride 60 mg oral tablet (1 source) alpha-Adrenergic Agonist, Uncompetitive S-xvmmzo-U-aspartate Receptor Antagonist, Sigma-1 Agonist Start: 06-04-2023 take [...] Refills(s) 0 Start Date: 10/30/22 Status: Ordered Multiple Vitamin (multivitamin) capsule (3 sources) take 1 capsule by mouth in the morning Multiple Vitamin (multivitamin) capsule Take 1 capsule by mouth in the morning. Active 24 hr oxybutynin chloride 5 mg extended release oral tablet (1 source) Cholinergic Muscarinic Antagonist Start: 11-17-2022 take 1 tablet by mouth once daily oxybutynin 5 mg ER Tab 5 mg = 1 tab(s), Oral, Daily, # 30 tab(s), Refills(s) 0, [facility]: [id number], 172, cm, 11/05/22 10:05:00 EDT, Height/Length Dosing, 80, kg, 11/05/22 10:05:00 EDT, Weight Dosing Start Date: 11/17/22 Status: Ordered predniSONE 20 mg oral tablet (1 source) Start: 06-04-2023 take 1 tablet by mouth every twelve hours prednisone 20 MG 1 tablet Orally BID for 5 May, Active vilazodone hydrochloride 20 mg oral tablet (13 sources) Start: 11-12-2023 End: 03-03-2024 take 20 [...] a day for 30 days Active Vit M38-Lpfkguciec-Wvuf-Hkbl (4 sources) Vit F08-Bzsupkzp no-Qine-Jfhd Active Completed/Discontinued Medications Medication Drug Class(es) Dates [...] tartrate 4 mg extended release oral capsule (9 sources) Cholinergic Muscarinic Antagonist Start: 11-12-2023 End: 03-24-2024 take 1 capsule by mouth once daily Tolterodine Discontinued 1 CAP PO Daily November 12, 2023 12:00am March 24, 2024 9:51am [employer] capsule Orally Once a day; Note: Source Status: Taking; Provider: Héctor Lowery ( ) take 1 capsule by mo ut every twenty-four hours in the morning tolterodine LA (Detrol LA) 4 MG 24 hr capsule Take 4 mg by mouth in the morning. Do not crush, chew, or split. . Active take 1 capsule by mo uth every twenty-four hours Tolterodine Tartrate ER 4 [...] STRUCT UNS SITE] Onset: 10-14-2022 Episodic Other connective tissue disease (2 sources) Pain in left foot; Translations: [Pain in left foot] 06-13-2024 Episodic Other lower respiratory disease (2 sources) [...] malignant neoplasm of cervix] Onset: 10-01-2022 Episodic Other skin disorders (2 sources) Dystrophia unguium; Translations: [Nail dystrophy] 06-13-2024 Episodic Residual codes; unclassified (4 sources) Asymptomatic [...] (COVID-19) RNA DAMARI+probe Ql (Unsp spec) Positive [facility] Other COVID/FLU RT-PCR Negative [facility] Other Quick Strepon 06-04-2023 S. pyogenes Org specific cx Ql (Throat) Negative [facility] Other Quick Strep [facility] Other Urology Office/Clinic Noteon 11-17-2022 Urology Office/Clinic [...] Daily, # 30 tab(s), Refills(s) 0, Pharmacy: [facility] #[id number], 172, cm, 11/05/22 10:05:00 EDT, Height/Length Dosing, [...] mRNA BNT-162b2 vax 12/21/2020 Recorded Normal [facility] Comment on above: Result Comment: Elec tronically Signed By: TOBIN HAMILTON, PALAK Valentin\Date and Time Signed: 11/17/22 09:41 EDT MG MAMM SCREEN 3D NORMAN CADon 10-09-2022 MG MAMM SCREEN 3D NORMAN CAD Patient: TITA MITCHELL Exam Date: 10/09/2022 : 1965 Gender:F Ordering : DR FOREST TORRES . Admission #: [id number] Family : Order #: [id number] CLICK HERE TO VIEW EXAM RADIOLOGY REPORT [...] breast cancer at age 62. LOCATION: [facility] BREAST COMPOSITION: Heterogeneously dense,which may obscure [...] Hardin MD on 10/09/2022 at 10:44 Normal [facility] XR DEXA BONE DENSITYon 10-09 XR [...] by: DEMOND BELTRAN Date: 2022-10-09 10:49 Normal [facility] PAP ACOG PANEL 2: 30 to 65on 10-08-2022 . . Normal [facility] Comment on above: Result Comment: Perf ormed at: WB Performed By: #### [id number] #### [facility] [address] [place] [address] Dr. Carol Montaño Age Gdln ACOG Testing 30-65 Normal [facility] Comment on above: Performed By: #### [id number] #### [facility] [address] [place] [address] Dr. Carol Montaño DIAGNOSIS: Comment Normal [facility] Comment on above: Result Comment: NEGA TIVE FOR INTRAEPITHELIAL LESION OR MALIGNANCY. Performed at: WB Performed By: #### [id number] #### [facility] [address] [place] [address] Dr. Carol Montaño HPV Aptima Negative Normal Negative [facility] Comment on above: Result Comment: This nucleic acid amplification test detects fourteen high-risk HPV types (16,18,31,33,35,39,45,51,52,56,58,59,66,68) without differentiation. Performed at: =G Performed By: #### [id number] #### [facility] [address] [place] [address] Dr. Carol Montaño HPV Genotype Reflex Comment Normal [facility] Comment on above: Result Comment: Crit ercristina not met, HPV Genotype not performed. Performed at: WB Performed By: #### [id number] #### [facility] [address] [place] [address] Dr. Carol Montaño Methodology: Comment Normal [facility] Comment on above: Result Comment: This liquid based ThinPrep(R) pap test was screened with the use of an image guided system. Performed at: WB Performed By: #### [id number] #### [facility] [address] [place] [address] Dr. Carol Montaño Note: Comment Normal [facility] Comment on above: Result Comment: The Pap smear is a screening test designed to aid in the detection of premalignant and malignant conditions of the uterine cervix. It is not a diagnostic procedure and should not be used as the sole means of detecting cervical cancer. Both false-positive and false-negative reports do occur. . Performed at: WB Performed By: #### [id number] #### [facility] [address] [place] [address] Dr. Carol Montaño Performed by: Comment Normal [facility] Comment on above: Result Comment: Nel Tucker, Car Shagger (ASCP) Performed at: WB Performed By: #### [id number] #### [facility] [address] [place] [address] Dr. Carol Montaño Specimen adequacy: Comment Normal [facility] Comment on above: Result Comment: Sati sfactory for evaluation. Endocervical and/or squamous metaplastic cells (endocervical component) are present. Performed at: WB Performed By: #### [id number] #### [facility] [address] [place] [address] Dr. Carol Montaño CBC AUTO DIFFon 07-07-2022 BASO # 0.1 103/ul Normal 0.0-0.1 [facility] Comment on above: Performed By: #### C BC #### [facility] [address] [address] [address] Carol Montaño Basophils/100 WBC (Bld) 1.0 % Normal 0.2-2.0 [facility] Comment on above: Performed By: #### C BC #### [facility] [address] [place] [address] Dr. Craol Montaño EO # 0.5 103/ul Normal 0.0-0.7 [facility] Comment on above: Performed By: #### C BC #### [facility] [address] [place] [address] Dr. Carol Montaño Eosinophils/100 WBC (Bld) 5.7 % Normal 0.9-7.0 [facility] Comment on above: Performed By: #### C BC #### [facility] [address] [place] [address] Dr. Carol Montaño Erythrocyte distribution width (RBC) [Ratio] 12.5 % Normal 11.0-15.0 [facility] Comment on above: Performed By: #### C BC #### [facility] [address] [place] [address] Dr. Carol Montaño Hematocrit (Bld) [Volume fraction] 46.7 % Normal 36.0-48.0 [facility] Comment on above: Performed By: #### C BC #### [facility] [address] [place] [address] Dr. Carol Montaño Hemoglobin (Bld) [Mass/Vol] 15.5 g/dL Normal 12.0-16.0 [facility] Comment on above: Performed By: #### C BC #### [facility] [address] [place] [address] Dr. Carol Montaño IG # 0.03 10e3/ul Normal 0.00-0.03 [facility] Comment on above: Performed By: #### C BC #### [facility] [address] [place] [address] Dr. Carol Montaño IG % 0.4 % Normal 0.0-0.5 [facility] Comment on above: Performed By: #### C BC #### [facility] [address] [place] [address] Dr. Carol Montaño LYMPH # 3.2 103/ul Normal 1.2-3.8 [facility] Comment on above: Performed By: #### C BC #### [facility] [address] [place] [address] Dr. Carol Montaño Lymphocytes/100 WBC (Bld) 38.8 % Normal 20.5-60.0 [facility] Comment on above: Performed By: #### C BC #### [facility] [address] [place] [address] Dr. Carol Montaño MANUAL DIFF REQ NO Normal [facility] Comment on above: Performed By: #### C BC #### [facility] [address] [place] [address] Dr. Carol Montaño MCH (RBC) [Entitic mass] 30.5 pg Normal 26.7-34.0 [facility] Comment on above: Performed By: #### C BC #### [facility] [address] [place] [address] Dr. Carol Montaño MCHC (RBC) [Mass/Vol] 33.2 g/dL Normal 29.9-35.2 [facility] Comment on above: Performed By: #### C BC #### [facility] [address] [place] [address] Dr. Carol Montaño MCV (RBC) [Entitic vol] 91.7 fL Normal 81.0-99.0 [facility] Comment on above: Performed By: #### C BC #### [facility] [address] [place] [address] Dr. Carol Montaño MONO # 0.5 103/ul Normal 0.3-0.8 [facility] Comment on above: Performed By: #### C BC #### [facility] [address] [place] [address] Dr. Carol Montaño Monocytes/100 WBC (Bld) 6.6 % Normal 1.7-12.0 [facility] Comment on above: Performed By: #### C BC #### [facility] [address] [place] [address] Dr. Carol Montaño NEUT # 3.9 103/ul Normal 1.4-6.5 [facility] Comment on above: Performed By: #### C BC #### [facility] [address] [place] [address] Dr. Carol Montaño Neutrophils/100 WBC (Bld) 47.5 % Normal 43.0-75.0 [facility] Comment on above: Performed By: #### C BC #### [facility] [address] [place] [address] Dr. Carol Montaño Platelet mean volume (Bld) [Entitic vol] 9.9 fL Normal 9.5-13.5 [facility] Comment on above: Performed By: #### C BC #### [facility] [address] [place] [address] Dr. Carol Montaño PLT 324 103/ul Normal 150-450 [facility] Comment on above: Performed By: #### C BC #### [facility] [address] [place] [address] Dr. Carol Montaño RBC 5.09 106/ul Normal 4.20-5.40 [facility] Comment on above: Performed By: #### C BC #### [facility] [address] [place] [address] Dr. Carol Montaño WBC 8.2 103/ul Normal 4.0-11.0 [facility] Comment on above: Performed By: #### C BC #### [facility] [address] [place] [address] Dr. Carol Montaño LIPID PROFILEon 07-07-2022 CHOL-HDL RATIO NORM SEE BELOW Normal [facility] Comment on above: Result Comment: 3.3 - 4.4 LOW RISK 4.4 - 7.1 AVERAGE RISK 7.1 - 11.0 MODERATE RISK >11.0 HIGH RISK Performed By: #### C MP, LIPID, T4, TSH #### [facility] [address] [place] [address] Dr. Carol Montaño Cholesterol [Mass/Vol] 233 mg/dL Critically high <=200 [facility] Comment on above: Performed By: #### C MP, LIPID, T4, TSH #### [facility] [address] [address] [address] Carol Montaño Cholesterol in HDL [Mass/Vol] 61 mg/dL Critically high 40-60 [facility] Comment on above: Performed By: #### C MP, LIPID, T4, TSH #### [facility] [address] [address] [address] Carol Montaño Cholesterol in LDL [Mass/Vol] 154.8 mg/dL Normal [facility] Comment on above: Performed By: #### C MP, LIPID, T4, TSH #### [facility] [address] [address] [address] Carol Montaño Cholesterol.total /Cholesterol in HDL [Mass ratio] 3.8 {ratio} Normal [facility] Comment on above: Performed By: #### C MP, LIPID, T4, TSH #### [facility] [address] [address] [address] Carol Montaño HDL NORMAL > or = 60 mg/dl - LO W CARDIOVASCULAR RISK <40 mg/dl - HIGH CARDIOVASCULAR RISK Normal [facility] Comment on above: Performed By: #### C MP, LIPID, T4, TSH #### [facility] [address] [place] [address] Dr. Carol Montaño LDL CALC NORMAL SEE BELOW Normal [facility] Comment on above: Result Comment: <100 mg/dl OPTIMAL 100 - 129 mg/dl NEAR OR ABOVE OPTIMAL 130 - 159 mg/dl BORDERLINE HIGH 160 - 189 mg/dl HIGH >190 mg/dl VERY HIGH Performed By: #### C MP, LIPID, T4, TSH #### [facility] [address] [place] [address] Dr. Carol Montaño Triglyceride [Mass/Vol] 86 mg/dL Normal <=150 [facility] Comment on above: Performed By: #### C MP, LIPID, T4, TSH #### [facility] [address] [place] [address] Dr. Carol Montaño VLDL CALC 17.2 mg/dL Normal [facility] Comment on above: Performed By: #### C MP, LIPID, T4, TSH #### [facility] [address] [address] [address] Carol Montaño PROF 14(COMP METB)on 022 Albumin [Mass/Vol] 3.9 g/dL Normal 3.4-5.0 [facility] Comment on above: Performed By: #### C MP, LIPID, T4, TSH #### [facility] [address] [place] [address] Dr. Carol Montaño Albumin/Globulin [Mass ratio] 1.2 {ratio} Normal [facility] Comment on above: Performed By: #### C MP, LIPID, T4, TSH #### [facility] [address] [place] [address] Dr. Carol Montaño ALP [Catalytic activity/Vol] 81 U/L Normal 46-116 [facility] Comment on above: Performed By: #### C MP, LIPID, T4, TSH #### [facility] [address] [place] [address] Dr. Carol Montaño ALT [Catalytic activity/Vol] 10 U/L Critically low 14-59 [facility] Comment on above: Performed By: #### C MP, LIPID, T4, TSH #### [facility] [address] [address] [address] Carol Montaño Anion gap [Moles/Vol] 8.8 mmol/L Normal [facility] Comment on above: Performed By: #### C MP, LIPID, T4, TSH #### [facility] [address] [place] [address] Dr. Carol Montaño AST [Catalytic activity/Vol] 16 U/L Normal 15-37 [facility] Comment on above: Performed By: #### C MP, LIPID, T4, TSH #### [facility] [address] [address] [address] Carol Montaño Bilirubin [Mass/Vol] 0.4 mg/dL Normal 0.2-1.0 [facility] Comment on above: Performed By: #### C MP, LIPID, T4, TSH #### [facility] [address] [address] [address] Carol Montaño Calcium [Mass/Vol] 9.4 mg/dL Normal 8.5-10.1 [facility] Comment on above: Performed By: #### C MP, LIPID, T4, TSH #### [facility] [address] [place] [address] Dr. Carol Montaño Chloride [Moles/Vol] 102 mmol/L Normal 98-107 [facility] Comment on above: Performed By: #### C MP, LIPID, T4, TSH #### [facility] [address] [place] [address] Dr. Carol Montaño CO2 [Moles/Vol] 31.1 mmol/L Normal 21.0-32.0 [facility] Comment on above: Performed By: #### C MP, LIPID, T4, TSH #### [facility] [address] [place] [address] Dr. Carol Montaño Creatinine [Mass/Vol] 0.74 mg/dL Normal 0.55-1.02 [facility] Comment on above: Performed By: #### C MP, LIPID, T4, TSH #### [facility] [address] [place] [address] Dr. Carol Montaño EGFR-AF ANGUILLAN >60 Normal >=60 [facility] Comment on above: Performed By: #### C MP, LIPID, T4, TSH #### [facility] [address] [place] [address] Dr. Carol Montaño EGFR-NON AF ANGUILLAN >60 Normal >=60 [facility] Comment on above: Performed By: #### C MP, LIPID, T4, TSH #### [facility] [address] [place] [address] Dr. Carol Montaño Globulin (S) [Mass/Vol] 3.2 g/dL Normal [facility] Comment on above: Performed By: #### C MP, LIPID, T4, TSH #### [facility] [address] [place] [address] Dr. Carol Montaño Glucose [Mass/Vol] 87 mg/dL Normal 74-106 [facility] Comment on above: Performed By: #### C MP, LIPID, T4, TSH #### [facility] [address] [place] [address] Dr. Carol Montaño Potassium [Moles/Vol] 3.9 mmol/L Normal 3.5-5.1 [facility] Comment on above: Performed By: #### C MP, LIPID, T4, TSH #### [facility] [address] [place] [address] Dr. Carol Montaño Protein [Mass/Vol] 7.1 g/dL Normal 6.4-8.2 [facility] Comment on above: Performed By: #### C MP, LIPID, T4, TSH #### [facility] [address] [place] [address] Dr. Carol Montaño Sodium [Moles/Vol] 138 mmol/L Normal 136-145 [facility] Comment on above: Performed By: #### C MP, LIPID, T4, TSH #### [facility] [address] [place] [address] Dr. Carol Montaño Urea nitrogen [Mass/Vol] 10.0 mg/dL Normal 7.0-18.0 [facility] Comment on above: Performed By: #### C MP, LIPID, T4, TSH #### [facility] [address] [place] [address] Dr. Carol Montaño Urea nitrogen/Creatini ne [Mass ratio] 13.5 mg/mg Normal [facility] Comment on above: Performed By: #### C MP, LIPID, T4, TSH #### [facility] [address] [place] [address] Dr. Carol Montaño T4on 07-07-2022 T4 [Mass/Vol] 7.10 ug/dL Normal 4.80-13.90 [facility] Comment on above: Performed By: #### C MP, LIPID, T4, TSH #### [facility] [address] [place] [address] Dr. Carol Montaño TSHon 07-07-2022 TSH 1.220 uIU/mL Normal 0.358-3.740 [facility] Comment on above: Performed By: #### C MP, LIPID, T4, TSH #### [facility] [address] [place] [address] Dr. Carol Montaño XR CHEST 2 Von [...] by: TAMMIE HARDIN Date: 2022-05-07 10:26 Normal [facility] Vital Signs Date Time Vital Sign Value Performing Clinician Facility 06-13-2024 14:22-0400 Body height 170.2 cm Sarina Phan DPM Work Phone: [facility] 06-13-2024 14:22-0400 Body mass index (BMI) [Ratio] 28.19 kg/m2 Sarina Phan DPM Work Phone: [facility] 06-13-2024 14:22-0400 Body weight 81.65 kg Sarinafelicitas Phan DPM Work Phone: [facility] 03-24-2024 09:52-0400 Body height 175.26 cm [facility] 03-24-2024 09:52-0400 Body mass index (BMI) [Ratio] 25.8 kg/m2 [facility] 03-24-2024 09:52-0400 Body temperature 97.9 [degF] [facility] 03-24-2024 09:52-0400 Body weight 79.37 kg [facility] 03-24-2024 09:52-0400 Diastolic blood pressure 82 mm[Hg] [facility] 03-24-2024 09:52-0400 Heart rate 71 /min [facility] 03-24-2024 09:52-0400 Respiratory rate 20 /min [facility] 03-24-2024 09:52-0400 SaO2% (BldA) [Mass fraction] 96 % [facility] 03-24-2024 09:52-0400 Systolic blood pressure 124 mm[Hg] [facility] 11-13-2023 08:31-0400 Body height 175.26 cm [facility] 11-13-2023 08:31-0400 Body mass index (BMI) [Ratio] 25.9 kg/m2 [facility] 11-13-2023 08:31-0400 Body temperature 98.6 [degF] [facility] 11-13-2023 08:31-0400 Body weight 79.88 kg [facility] 11-13-2023 08:31-0400 Diastolic blood pressure 66 mm[Hg] [facility] 11-13-2023 08:31-0400 Heart rate 72 /min [facility] 11-13-2023 08:31-0400 SaO2% (BldA) [Mass fraction] 92 % [facility] 11-13-2023 08:31-0400 Systolic blood pressure 103 mm[Hg] [facility] 06-04-2023 09:30-0400 Body height 175.26 cm Beverley Anaya Other [employer] [facility] Other 06-04-2023 09:30-0400 Body mass index (BMI) [Ratio] 25.69 kg/m2 Beverley Anaya Other [employer] Other 06-04-2023 09:30-0400 Body temperature 98.3 [degF] Beverley Anaya Other [employer] Other 06-04-2023 09:30-0400 Body weight 78.93 kg Beverley Anaya Other [employer] Other 06-04-2023 09:30-0400 Diastolic blood pressure 99 mm[Hg] Beverley Anaya Other [employer] Other 06-04-2023 09:30-0400 Respiratory rate 18 /min Beverley Anaya Other [employer] Other 06-04-2023 09:30-0400 SaO2% (BldA) [Mass fraction] 97 % Beverley Baileyler Other [employer] Other 06-04-2023 09:30-0400 Systolic blood pressure 127 mm[Hg] Beverley Anaya Other [employer] Other 03-31-2023 11:00-0400 Body height 175.26 cm Carley Jackson Other [employer] Other 03-31-2023 11:00-0400 Body mass index (BMI) [Ratio] 26.73 kg/m2 Carley Jackson Other [employer] Other 03-31-2023 11:00-0400 Body weight 82.1 kg Carley Jackson Other [employer] Other 03-31-2023 11:00-0400 Diastolic blood pressure 74 mm[Hg] Carley Jackson Other [employer] Other 03-31-2023 11:00-0400 Systolic blood pressure 125 mm[Hg] Carley Jackson Other [employer] Other 11-05-2022 09:58-0400 Blood Pressure Location PALAK RUDD [facility] 11-05-2022 09:58-0400 Diastolic blood pressure 82 mm[Hg] PALAK RUDD [facility] 11-05-2022 09:58-0400 Heart rate 67 /min PALAK TOBIN [facility] 11-05-2022 09:58-0400 Systolic blood pressure 132 mm[Hg] PALAK RUDD [facility] Encounters Encounter Date Encounter Type Care Provider Facility Start: 06-13-2024 End: 06-13-2024 Office outpatient visit 15 minutes Sarina Phan DPM Work Phone: [facility] Comment on above: Onychodystrophy (Nicolette doris Dx); Left foot pain Start: 06-13-2024 End: 06-13-2024 ambulatory SARINA PHAN Not Available Start: 06-13-2024 End: 06-13-2024 Bamboo flowsheet Sarina Phan DPM Work Phone: [facility] Start: 06-13-2024 End: 06-13-2024 Bamboo flowsheet Sarina Phan DPM Work Phone: [facility] Start: 03-24-2024 End: 03-24-2024 ambulatory [facility] Work Phone: Start: 03-24-2024 End: 03-24-2024 Patient encounter procedure [facility] Physician [facility] Work Phone: Start: 11-13-2023 End: 11-13-2023 ambulatory [facility] Work Phone: Start: 11-13-2023 End: 11-13-2023 Patient encounter procedure [facility] Work Phone: Start: 06-04-2023 End: 06-04-2023 ambulatory Beverley Anaya Other [employer] Other Start: 06-04-2023 Office outpatient vi sit 25 minutes Beverley Anaya [facility] Start: 05-29-2023 End: 05-29-2023 ambulatory Carley Jackson Other [employer] Other Start: 05-29-2023 Telephone encounter Carley Jackson [facility] Start: 04-08-2023 End: 04-08-2023 ambulatory Carley Jackson Other [employer] Other Start: 04-08-2023 Telephone encounter Carley Jackson [facility] Start: 03-31-2023 End: 03-31-2023 ambulatory Carley Jackson Other [employer] Other Start: 03-31-2023 Office outpatient ne w 30 minutes Carley Jackson [facility] Start: 01-27-2023 End: 01-28-2023 ambulatory PALAK E TOBIN Facility:[facility] Start: 01-27-2023 End: 01-27-2023 Patient encounter procedure PALAK Ashley TOBIN [facility] Start: 11-05-2022 End: 11-06-2022 ambulatory PALAK Ashley RUDD Facility:[facility] Start: 11-05-2022 End: 11-05-2022 Patient encounter procedure PALAK E TOBIN [facility] Start: 10-09-2022 End: 10-10-[address] FOREST TORRES . Facility:[facility] Start: 10-02-2022 ambulatory [facility] RUDD [facility] Start: 10-01-2022 End: 10-01-[address] FOREST TORRES . Facility:[facility] Start: 07-10-2022 Encounter for genera l adult medical examination without abnormal findings DR MACHO ARTEAGA [facility] Start: 07-07-2022 End: 07-08-[address] MACHO ARTEAGA Facility:[facility] Start: 07-07-2022 End: 07-08-2022 Encounter for general adult medical examination without abnormal findings DR MACHO ARTEAGA Facility:[facility] Start: 05-07-2022 End: 05-08-[address] MACHO ARTEAGA Facility:[facility] Procedures Date Procedure Procedure Detail Performing Clinician Start: 10-09-2022 Mammography Sarina goodwin DPM Work Phone: Cholecystectomy PALAK STEPHENS Plan of Treatment Date Care Activity Detail Author Start: 06-13-2024 End: 06-13-2024 Patient encounter procedure 06/13/2024 2:30 PM EDT Office Visit [facility] [address] [place] [id number] Sarina Phan DPM [address] [place] [address] [facility] Comment on above: Arrived Start: 04-24-2024 Influenza vaccination Influenz a Vaccine (#1) [facility] Start: 10-09-2023 Screening for malign ant neoplasm of breast Mammogram [facility] Start: 11-27-1997 Screening for malign ant neoplasm of cervix [facility] Start: 11-27-1988 Screening for malign ant neoplasm of cervix Pap Smear [facility] Start: 1965 Screening for malign ant neoplasm of colon [facility] CT Chest WO contrast [facility] XR Chest 2 Views [facility] Immunizations Immunization Date Immunization Notes Care Provider Marisela meza 09-19-2021 SARS-CoV-2 (COVID-19 ) mRNA BNT-162b2 vax PALAK RUDD [facility] 01-11-2021 SARS-CoV-2 (COVID-19 ) mRNA BNT-162b2 vax PALAK TOBIN [facility] 12-21-2020 SARS-CoV-2 (COVID-19 ) mRNA BNT-162b2 vax PALAK TOBIN [facility] Payers Date Payer Category Payer Private Health Insurance [employer] [id number] 1965 Unknown [id number] 1965 Unknown [id number] 1967 Unknown [id number] 1967 Unknown [id number] 1967 Unknown [id number] 1967 Unknown [id number] 1967 Unknown [id number] 1967 Unknown [id number] 1959 Unknown [id number] Social History Date Type Detail Facility Start: 11-05-2022 Tobacco smoking status Heavy t obacco smoker (finding) [facility] Tobacco smoking status Never [facility] Start: 02-02-2023 Sex Assigned At Female F [facility] Start: 11-12-2023 End: 03-24-2024 Tobacco smoking status NHIS Smoker (finding) [facility] Start: 1965 Sex Assigned At Female F [facility] Start: 02-02-2023 End: 06-13-2024 Tobacco smoking status NHIS Smokes tobacco daily [facility] History of tobacco use Cigarette Smoker [facility] Start: 02-02-2023 End: 06-13-2024 Tobacco use and exposure Smokeless tobacco non-user [facility] Start: 02-02-2023 End: 06-13-2024 Alcoholic beverage intake Current drinker of alcohol (finding) [facility] Start: 02-02-2023 End: 06-13-2024 Alcoholic beverage intake [facility] Start: 02-02-2023 Tobacco Comment Started smokin g at 18yo [facility] Start: 01-31-2023 Alcohol Comment 3-4 drinks for >4x a week in the past year, Caffeine intake: >4 cups per day [facility] Start: 1965 Sex assigned at Not on file N [facility] Functional Status Date Assessment Result Facility 11-05-2022 Functional Status N/A [facility] Clinical Notes 03-31-2023 to 06-13-2024 Sarina Phan DPM - 06/13/2024 2:30 PM EDT Note Date & Type Note Facility 06-13-2024 History of Presen t illness Narrative Images from the original note were not included. Subjective Patient ID: Tita Mitchell is a 58 y.o. female who presents for Toe Pain (Established pt presents today with concerns of a painful LGT nail. Nail is very thick and painful for patient. ). HPI This is an established patient who returns to clinic with concern of her left hallux toenail. I saw her last year and she was concern for fungal infection of the hallux nail. A nail specimen was taken which was negative for fungal disease. Since that time she has had recurrent thickness, tenderness of the toenail. She is here today to discuss further options. Review of Systems Constitutional: Negative for activity change and appetite change. Respiratory: Negative for chest tightness and shortness of breath. Cardiovascular: Negative for chest pain and leg swelling. Endocrine: Negative for cold intolerance and heat intolerance. Musculoskeletal: Positive for arthralgias. Skin: Negative for color change and wound. Allergic/Immunologic: Negative for immunocompromised state. Neurological: Negative for weakness. Hematological: Does not bruise/bleed easily. Psychiatric/Behavioral: Negative for agitation and behavioral problems. Medications Current Outpatient Medications: ARIPiprazole (Abilify) 10 MG tablet, Take 10 mg by mouth in the morning., Disp: , Rfl: vilazodone (Viibryd) 10 mg tablet, Take 10 mg by mouth in the morning. Take with meals., Disp: , Rfl: calcium acetate (Phoslo) 667 MG capsule, Take 1,334 mg by mouth in the morning and 1,334 mg at noon and 1,334 mg in the evening. Take with meals., Disp: , Rfl: Multiple Vitamin (multivitamin) capsule, Take 1 capsule by mouth in the morning., Disp: , Rfl: tolterodine LA (Detrol LA) 4 MG 24 hr capsule, Take 4 mg by mouth in the morning. Do not crush, chew, or split. ., Disp: , Rfl: Allergies Patient has no known allergies. Past Surgical History Past Surgical History: Procedure Laterality Date CHOLECYSTECTOMY TONSILLECTOMY Family History Family History Problem Relation Name Age of Onset Cancer Mother Mother Breast cancer Mother Mother Hypertension Mother Mother Other (breast cancer) Mother Mother Hypertension Father Tammie Diabetes Daughter Mary Alice Objective Physical Exam Constitutional: General: She is not in acute distress. HENT: Head: Normocephalic and atraumatic. Cardiovascular: Pulses: Normal pulses. Pulmonary: Effort: Pulmonary effort is normal. No respiratory distress. Musculoskeletal: Cervical back: Neck supple. Comments: No obvious muscle deficits. No significant pedal deformities. Skin: Capillary Refill: Capillary refill takes less than 2 seconds. Comments: Left hallux exhibits continued nail dystrophy with thickened appearance, yellow discoloration, crumbly texture and subungual debris. There is approximately 25 percent onycholysis. Proximal nail does seem to be intact. Minimal tenderness with manipulation of the left hallux toenail. Neurological: Mental Status: She is alert. Comments: No loss of protective sensation, gross sensation intact. Psychiatric: Mood and Affect: Mood normal. Behavior: Behavior normal. Assessment/Plan ICD-10-CM 1. Onychodystrophy L60.3 2. Left foot pain M79.672 Patient was examined and evaluated. Reviewed previous nail specimen result from last year which was negative for onychomycosis. Discussed treatment options going forward including observation with regular debridement versus phenol matricectomy. Patient is extremely nervous about moving forward with any type of procedure. In light of this I recommend moving forward with debridement and continued observation. Left hallux toenail was debrided in length and thickness today utilizing a nail Nipper and electric bur sand mill grinder with incident. Patient noted relief of symptoms with debridement. For now I will see her back on an as-needed basis. If she continues to have issues with the toenail we will consider phenol matricectomy. I also discussed that regular debridement could be required in our office if needed. This note was created with the assistance of a speech recognition program. While intending to generate a timely document that accurately reflects the content of the visit, no guarantee can be provided that every grammatical or spelling mistake has been or will be identified or corrected. Thank you for your understanding. Sarina Phan DPM documented in this encounter [facility] 06-04-2023 Evaluation note Encounter Date Diagnosis Assessment [...] treatment plan. Patient left in stable condition [employer] Other 08-08-2023 Evaluation note* Encounter Date Diagnosis Assessment Notes Treatment Notes Treatment Clinical Notes Mar, Depressed bipolar disorder (ICD-10 - F31.9) Pt requests to increase med. Previously on Cymbalta for many years. Notes improvement, but could be better prior to winter months. Will call if further issues. Mar, Nicotine dependence, cigarettes, uncomplicated (ICD-10 - F17.210) Agrees to LDCT for lung cancer screening. Mar, Essential (primary) hypertension (ICD-10 - I10) Chronic problem - stable on present med. [employer] Other Evaluation + Plan note No data available for this section [facility] evaluation noteNo InformationNort [employer] Other Evaluation note* Diagnosis Onset Date Resolution Status Bronchitis acute [facility] Work Phone: Evaluation note* Diagnosis Onset Date Resolution Status Abnormal finding on lung imaging acute Bronchiectasis, uncomplicated acute Cigarette nicotine dependenc e with nicotine-induced disorder acute Marijuana use acute Shortness of breath acute [facility] Work Phone: Evaluation note* Diagnosis Onychodystrophy- Primary Other specified disease of nail Left foot pain Pain in soft tissues of limb documented in this [facility] N[facility] - Reported* Type Description Date Medical History Depressed Medical History Bipolar 1 disorder Medical History Back pain Surgical History tonsillectomy Surgical History cholecystectomy Surgical History wisdom teeth [employer] Other Hospital Discharge instructions No data available for this section [facility] progress note No data available for this section [facility] Summary Purpose Family History No Family History Records Found Relationship Condition Age at Onset Recorded Date/T zarina father Unknown Not Specified Unknown Relationship Condition Age at Onset Recorded Date/T zarina father Unknown mother Unknown Advance Directives No Advanced Directives Records Found Advance Directive Response Recorded Date/ Time Advance Directives No November 12, 2 024 8:30am Chief Complaint and Reason for [...] [facility] DATE CREATED AUTHOR AUTHOR'S ORGANIZ ATION 02/01/2023 [facility] DATE CREATED AUTHOR AUTHOR'S ORGANIZ ATION 06/15/2024 [facility] EPIC Patient Care team informatio n (unrecognized section [...] March 24, 2024 End: March 24, 2024 [facility] D[facility] Active Start : March 24, 2024 End: March 24, 2024 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 Nail is very thick and painful for patient. Goals (unrecognized section and content) Goals may [...] BE BASED ON THE PRIMARY CLINICAL RECORDS. [facility]. provides no warranty or guarantee of the accuracy or completeness of information in this document.
== END 2024-07-15 08:01 | disposition home or self-care (01) ==
LOC: MAMMO 08:00
PROVIDERS: PCP Family Medicine; Visit Provider Family Medicine
DX: Z12.31 Encounter for screening mammogram for malignant neoplasm of breast (principal); Z80.3 Family history of malignant neoplasm of breast
CPT/HCPCS: 77063; 77067

== ENCOUNTER 2024-07-15 08:01 | Outpatient (OUT) | payer OTHER, SELFPAY ==
--- NOTE | 2024-07-15 08:05 | CT_ITS ---
The [address] [address] Patient Name: JUNIOR ASENCIO MRN: [id number] date: 1965 Sex: F Assigned Patient Location: CT Current Patient Location: Accession/Order Number: [id number] Exam Date: 07/15/2024 08:18 Report Date: 07/16/2024 06:40 At the request of: JULIANE GOMEZ Procedure: CT chest high res EXAMINATION: CT chest high res HISTORY: Abnormal Findings On Diagnostic Imaging Of Lung COMPARISON: CT chest 12/29/2023 TECHNIQUE: Axial images were obtained at 10 mm intervals during inspiration and expiration in the supine and prone positions. No IV contrast given. Dose reduction techniques were achieved by using automated exposure control and/or adjustment of mA and/or kV according to patient size and/or use of iterative reconstruction technique. FINDINGS: LUNGS: Scattered areas of mild mucous plugging prominently involving superior segments of lower lobes. No significant chronic interstitial changes, acute infiltrates, or suspicious nodules. No air trapping. PLEURA: No mass, effusion, or pneumothorax. EUSEBIA: No mass or adenopathy. MEDIASTINUM: No mass or adenopathy. HEART: No significant enlargement or pericardial effusion.. Coronary arteries: AORTA: No aneurysm.. CHEST WALL: No mass or axillary adenopathy LIMITED ABDOMEN: Stable small left adrenal nodule, nonspecific but favoring a benign adenoma. Limited images of the upper abdomen. OTHER: Negative. CT/CT chest high res IMPRESSION: 1. Scattered areas of mild mucous plugging; slightly <previously seen. 2. No acute infiltrates. Electronically authenticated by: RUTH BELTRAN Date: 07/16/2024 06:40
--- OUTSIDE RECORDS SUMMARY | 2024-07-15 08:06 | XMS_ITS | CCD ---
Author Organization [facility] Care Team Providers Care Chief Service Observer Name Role Phone TREMAINE ., DR GARG Admitting Unavailable TREMAINE ., DR GARG Attending Unavailable HARPERS FERRY, DR AQUINO Primary Care Unavailable LASHAWN, DR TAMMIE Freedman Consulting Unavailable TREMAINE ., DR GARG Consulting Unavailable Zieber, Demond Consulting Unavailable HARPERS FERRY, DR AQUINO Admitting Unavailable HARPERS FERRY, DR AQUINO Attending Unavailable HARPERS FERRY, DR AQUINO Primary Care Unavailable LUTCHER, DR TAMMIE Freedman Consulting Unavailable HARPERS FERRY, DR AQUINO Consulting Unavailable HARPERS FERRY, DR AQUINO Admitting Unavailable HARPERS FERRY, DR AQUINO Attending Unavailable HOUSE, DR AQUINO [...] Medication Allergies] Propensity to adverse reactions (disorder) [facility] Medications Current Medications Medication Drug Class(es) Dates Sig (Normalized) Sig (Original) ARIPiprazole 10 mg oral tablet (12 sources) Atypical Antipsychotic Start: 10-30-2022 End: 03-03-2024 take 1 tablet by mouth once daily Aripiprazole (Abilify) 10 mg tablet Active 10 MG PO Daily March 03, 2024 10:58am Calcium 1200 2349-6720 MG-UNIT (4 sources) take 1 tablet by mouth once daily Calcium 1200 5195-4652 MG-UNIT 1 tablet Orally Once a day [...] March 24, 2024 9:46am As directed [facility] Start: 03-24-2024 End: 03-24-2024 Cpap (Continuous Positive rway Pressure) Discontinued 0 .Route March 24, 2024 12:00am March 24, 2024 9:46am As directed dextromethorphan hydrobromide 15 mg / guaiFENesin 400 mg / pseudoephedrine hydrochloride 60 mg oral tablet (1 source) alpha-Adrenergic Agonist, Uncompetitive L-yblwgq-S-aspartate Receptor Antagonist, Sigma-1 Agonist Start: 06-04-2023 take [...] 30 tab(s), Refills(s) 0, [facility]: [id number], 172, cm, 11/05/22 10:05:00 EDT, Height/Length Dosing, [...] a day for 30 days Active Vit O51-Xfodnbnvsy-Crtw-Vffu (4 sources) Vit C76-Iiqqnliw ng-Pbpc-Flnq Active Completed/Discontinued Medications Medication Drug Class(es) Dates [...] (COVID-19) RNA DAMARI+probe Ql (Unsp spec) Positive [facility] [employer] Other COVID/FLU RT-PCR Negative [facility] [employer] Other Quick Strepon 06-04-2023 S. pyogenes Org specific cx Ql (Throat) Negative [facility] [employer] Other Quick Strep [facility] [employer] Other Urology Office/Clinic Noteon 11-17-2022 Urology Office/Clinic [...] Daily, # 30 tab(s), Refills(s) 0, Pharmacy: [facility] #[id number], 172, cm, 11/05/22 10:05:00 EDT, Height/Length Dosing, [...] mRNA BNT-162b2 vax 12/21/[address] Recorded Normal [facility] Comment on above: Result Comment: Elec tronically Signed By: TOBIN HAMILTON, PALAK Valentin\Date and Time Signed: 11/17/22 09:41 EDT MG MAMM SCREEN 3D NORMAN CADon 10-09-2022 MG MAMM SCREEN 3D NORMAN CAD Patient: TITA MITCHELL Exam Date: 10/09/2022 : 1965 Gender:F Ordering : DR FOREST TORRES . Admission #: [id number] Family : Order #: [id number] CLICK HERE TO VIEW EXAM RADIOLOGY REPORT [...] breast cancer at age 62. LOCATION: [facility] BREAST COMPOSITION: Heterogeneously dense,which may obscure [...] Hardin MD on 10/09/2022 at 10:44 Normal [facility] XR DEXA BONE DENSITYon 10-09 XR DEXA [...] by: DEMOND BELTRAN Date: 2022-10-09 10:49 Normal [facility] PAP ACOG PANEL 2: 30 to 65on 10-08-2022 . . Normal [facility] Comment on above: Result Comment: Perf ormed at: WB Performed By: #### [id number] #### [facility] [address] [place] [address] Dr. Carol Montaño Age Gdln ACOG Testing 30-65 Normal [facility] Comment on above: Performed By: #### [id number] #### [facility] [address] [place] [address] Dr. Carol Montaño DIAGNOSIS: Comment Normal [facility] Comment on above: Result Comment: NEGA TIVE FOR INTRAEPITHELIAL LESION OR MALIGNANCY. Performed at: WB Performed By: #### [id number] #### [facility] [address] [place] [address] Dr. Carol Montaño HPV Aptima Negative Normal Negative [facility] Comment on above: Result Comment: This nucleic acid amplification test detects fourteen high-risk HPV types (16,18,31,33,35,39,45,51,52,56,58,59,66,68) without differentiation. Performed at: =G Performed By: #### [id number] #### [facility] [address] [place] [address] Dr. Carol Montaño HPV Genotype Reflex Comment Normal [facility] Comment on above: Result Comment: Crit ercristina not met, HPV Genotype not performed. Performed at: WB Performed By: #### [id number] #### [facility] [address] [place] [address] Dr. Carol Montaño Methodology: Comment Normal [facility] Comment on above: Result Comment: This liquid based ThinPrep(R) pap test was screened with the use of an image guided system. Performed at: WB Performed By: #### [id number] #### [facility] [address] [place] [address] Dr. Carol Montaño Note: Comment Normal [facility] Comment on above: Result Comment: The Pap smear is a screening test designed to aid in the detection of premalignant and malignant conditions of the uterine cervix. It is not a diagnostic procedure and should not be used as the sole means of detecting cervical cancer. Both false-positive and false-negative reports do occur. . Performed at: WB Performed By: #### [id number] #### [facility] [address] [place] [address] Dr. Carol Montaño Performed by: Comment Normal [facility] Comment on above: Result Comment: Nel Tucker, Wringer Operator (ASCP) Performed at: WB Performed By: #### [id number] #### [facility] [address] [place] [address] Dr. Carol Montaño Specimen adequacy: Comment Normal [facility] Comment on above: Result Comment: Sati sfactory for evaluation. Endocervical and/or squamous metaplastic cells (endocervical component) are present. Performed at: WB Performed By: #### [id number] #### [facility] [address] [place] [address] Dr. Carol Montaño CBC AUTO DIFFon 07-07-2022 BASO # 0.1 103/ul Normal 0.0-0.1 [facility] Comment on above: Performed By: #### C BC #### [facility] [address] [address] [address] Carol Montaño Basophils/100 WBC (Bld) 1.0 % Normal 0.2-2.0 [facility] Comment on above: Performed By: #### C BC #### [facility] [address] [place] [address] Dr. Carol Montaño EO # 0.5 103/ul Normal 0.0-0.7 [facility] Comment on above: Performed By: #### C BC #### [facility] [address] [place] [address] Dr. Carol Montaño Eosinophils/100 WBC (Bld) 5.7 % Normal 0.9-7.0 [facility] Comment on above: Performed By: #### C BC #### [facility] [address] [place] [address] Dr. Carol Montaño Erythrocyte distribution width (RBC) [Ratio] 12.5 % Normal 11.0-15.0 [facility] Comment on above: Performed By: #### C BC #### [facility] [address] [place] [address] Dr. Carol Montaño Hematocrit (Bld) [Volume fraction] 46.7 % Normal 36.0-48.0 [facility] Comment on above: Performed By: #### C BC #### [facility] [address] [place] [address] Dr. Carol Montaño Hemoglobin (Bld) [Mass/Vol] 15.5 g/dL Normal 12.0-16.0 [facility] Comment on above: Performed By: #### C BC #### [facility] [address] [place] [address] Dr. Carol Montaño IG # 0.03 10e3/ul Normal 0.00-0.03 [facility] Comment on above: Performed By: #### C BC #### [facility] [address] [place] [address] Dr. Carol Montaño IG % 0.4 % Normal 0.0-0.5 [facility] Comment on above: Performed By: #### C BC #### [facility] [address] [place] [address] Dr. Carol Montaño LYMPH # 3.2 103/ul Normal 1.2-3.8 [facility] Comment on above: Performed By: #### C BC #### [facility] [address] [place] [address] Dr. Carol Montaño Lymphocytes/100 WBC (Bld) 38.8 % Normal 20.5-60.0 [facility] Comment on above: Performed By: #### C BC #### [facility] [address] [place] [address] Dr. Carol Montaño MANUAL DIFF REQ NO Normal [facility] Comment on above: Performed By: #### C BC #### [facility] [address] [place] [address] Dr. Carol Montaño MCH (RBC) [Entitic mass] 30.5 pg Normal 26.7-34.0 [facility] Comment on above: Performed By: #### C BC #### [facility] [address] [place] [address] Dr. Carol Montaño MCHC (RBC) [Mass/Vol] 33.2 g/dL Normal 29.9-35.2 [facility] Comment on above: Performed By: #### C BC #### [facility] [address] [place] [address] Dr. Carol Montaño MCV (RBC) [Entitic vol] 91.7 fL Normal 81.0-99.0 [facility] Comment on above: Performed By: #### C BC #### [facility] [address] [place] [address] Dr. Carol Montaño MONO # 0.5 103/ul Normal 0.3-0.8 [facility] Comment on above: Performed By: #### C BC #### [facility] [address] [place] [address] Dr. Carol Montaño Monocytes/100 WBC (Bld) 6.6 % Normal 1.7-12.0 [facility] Comment on above: Performed By: #### C BC #### [facility] [address] [place] [address] Dr. Carol Montaño NEUT # 3.9 103/ul Normal 1.4-6.5 [facility] Comment on above: Performed By: #### C BC #### [facility] [address] [place] [address] Dr. Carol Montaño Neutrophils/100 WBC (Bld) 47.5 % Normal 43.0-75.0 [facility] Comment on above: Performed By: #### C BC #### [facility] [address] [place] [address] Dr. Carol Montaño Platelet mean volume (Bld) [Entitic vol] 9.9 fL Normal 9.5-13.5 [facility] Comment on above: Performed By: #### C BC #### [facility] [address] [place] [address] Dr. Carol Montaño PLT 324 103/ul Normal 150-450 [facility] Comment on above: Performed By: #### C BC #### [facility] [address] [place] [address] Dr. Carol Montaño RBC 5.09 106/ul Normal 4.20-5.40 [facility] Comment on above: Performed By: #### C BC #### [facility] [address] [place] [address] Dr. Carol Montaño WBC 8.2 103/ul Normal 4.0-11.0 [facility] Comment on above: Performed By: #### C BC #### [facility] [address] [place] [address] Dr. Carol Montaño LIPID PROFILEon 07-07-2022 CHOL-HDL RATIO NORM SEE BELOW Normal [facility] Comment on above: Result Comment: 3.3 - 4.4 LOW RISK 4.4 - 7.1 AVERAGE RISK 7.1 - 11.0 MODERATE RISK >11.0 HIGH RISK Performed By: #### C MP, LIPID, T4, TSH #### [facility] [address] [place] [address] Dr. Carol Montaño Cholesterol [Mass/Vol] 233 mg/dL Critically high <=200 [facility] Comment on above: Performed By: #### C MP, LIPID, T4, TSH #### [facility] [address] [address] [address] Carol Montaño Cholesterol in HDL [Mass/Vol] 61 mg/dL Critically high 40-60 [facility] Comment on above: Performed By: #### C MP, LIPID, T4, TSH #### [facility] [address] [address] [address] Carol Montaño Cholesterol in LDL [Mass/Vol] 154.8 mg/dL Normal [facility] Comment on above: Performed By: #### C MP, LIPID, T4, TSH #### [facility] [address] [address] [address] Carol Montaño Cholesterol.total /Cholesterol in HDL [Mass ratio] 3.8 {ratio} Normal [facility] Comment on above: Performed By: #### C MP, LIPID, T4, TSH #### [facility] [address] [address] [address] Carol Montaño HDL NORMAL > or = 60 mg/dl - LO W CARDIOVASCULAR RISK <40 mg/dl - HIGH CARDIOVASCULAR RISK Normal [facility] Comment on above: Performed By: #### C MP, LIPID, T4, TSH #### [facility] [address] [place] [address] Dr. Carol Montaño LDL CALC NORMAL SEE BELOW Normal [facility] Comment on above: Result Comment: <100 mg/dl OPTIMAL 100 - 129 mg/dl NEAR OR ABOVE OPTIMAL 130 - 159 mg/dl BORDERLINE HIGH 160 - 189 mg/dl HIGH >190 mg/dl VERY HIGH Performed By: #### C MP, LIPID, T4, TSH #### [facility] [address] [place] [address] Dr. Carol Montaño Triglyceride [Mass/Vol] 86 mg/dL Normal <=150 [facility] Comment on above: Performed By: #### C MP, LIPID, T4, TSH #### [facility] [address] [place] [address] Dr. Carol Montaño VLDL CALC 17.2 mg/dL Normal [facility] Comment on above: Performed By: #### C MP, LIPID, T4, TSH #### [facility] [address] [address] [address] Carol Montaño PROF 14(COMP METB)on 022 Albumin [Mass/Vol] 3.9 g/dL Normal 3.4-5.0 [facility] Comment on above: Performed By: #### C MP, LIPID, T4, TSH #### [facility] [address] [place] [address] Dr. Carol Montaño Albumin/Globulin [Mass ratio] 1.2 {ratio} Normal [facility] Comment on above: Performed By: #### C MP, LIPID, T4, TSH #### [facility] [address] [place] [address] Dr. Carol Montaño ALP [Catalytic activity/Vol] 81 U/L Normal 46-116 [facility] Comment on above: Performed By: #### C MP, LIPID, T4, TSH #### [facility] [address] [place] [address] Dr. Carol Montaño ALT [Catalytic activity/Vol] 10 U/L Critically low 14-59 [facility] Comment on above: Performed By: #### C MP, LIPID, T4, TSH #### [facility] [address] [address] [address] Carol Montaño Anion gap [Moles/Vol] 8.8 mmol/L Normal [facility] Comment on above: Performed By: #### C MP, LIPID, T4, TSH #### [facility] [address] [place] [address] Dr. Carol Montaño AST [Catalytic activity/Vol] 16 U/L Normal 15-37 [facility] Comment on above: Performed By: #### C MP, LIPID, T4, TSH #### [facility] [address] [address] [address] Carol Montaño Bilirubin [Mass/Vol] 0.4 mg/dL Normal 0.2-1.0 [facility] Comment on above: Performed By: #### C MP, LIPID, T4, TSH #### [facility] [address] [address] [address] Carol Montaño Calcium [Mass/Vol] 9.4 mg/dL Normal 8.5-10.1 [facility] Comment on above: Performed By: #### C MP, LIPID, T4, TSH #### [facility] [address] [place] [address] Dr. Carol Montaño Chloride [Moles/Vol] 102 mmol/L Normal 98-107 [facility] Comment on above: Performed By: #### C MP, LIPID, T4, TSH #### [facility] [address] [place] [address] Dr. Carol Montaño CO2 [Moles/Vol] 31.1 mmol/L Normal 21.0-32.0 [facility] Comment on above: Performed By: #### C MP, LIPID, T4, TSH #### [facility] [address] [place] [address] Dr. Carol Montaño Creatinine [Mass/Vol] 0.74 mg/dL Normal 0.55-1.02 [facility] Comment on above: Performed By: #### C MP, LIPID, T4, TSH #### [facility] [address] [place] [address] Dr. Carol Montaño EGFR-AF TONGAN >60 Normal >=60 [facility] Comment on above: Performed By: #### C MP, LIPID, T4, TSH #### [facility] [address] [place] [address] Dr. Carol Montaño EGFR-NON AF TONGAN >60 Normal >=60 [facility] Comment on above: Performed By: #### C MP, LIPID, T4, TSH #### [facility] [address] [place] [address] Dr. Carol Montaño Globulin (S) [Mass/Vol] 3.2 g/dL Normal [facility] Comment on above: Performed By: #### C MP, LIPID, T4, TSH #### [facility] [address] [place] [address] Dr. Carol Montaño Glucose [Mass/Vol] 87 mg/dL Normal 74-106 [facility] Comment on above: Performed By: #### C MP, LIPID, T4, TSH #### [facility] [address] [place] [address] Dr. Carol Montaño Potassium [Moles/Vol] 3.9 mmol/L Normal 3.5-5.1 [facility] Comment on above: Performed By: #### C MP, LIPID, T4, TSH #### [facility] [address] [place] [address] Dr. Carol Montaño Protein [Mass/Vol] 7.1 g/dL Normal 6.4-8.2 [facility] Comment on above: Performed By: #### C MP, LIPID, T4, TSH #### [facility] [address] [place] [address] Dr. Carol Montaño Sodium [Moles/Vol] 138 mmol/L Normal 136-145 [facility] Comment on above: Performed By: #### C MP, LIPID, T4, TSH #### [facility] [address] [place] [address] Dr. Carol Montaño Urea nitrogen [Mass/Vol] 10.0 mg/dL Normal 7.0-18.0 [facility] Comment on above: Performed By: #### C MP, LIPID, T4, TSH #### [facility] [address] [place] [address] Dr. Carol Montaño Urea nitrogen/Creatini ne [Mass ratio] 13.5 mg/mg Normal [facility] Comment on above: Performed By: #### C MP, LIPID, T4, TSH #### [facility] [address] [place] [address] Dr. Carol Montaño T4on 07-07-2022 T4 [Mass/Vol] 7.10 ug/dL Normal 4.80-13.90 [facility] Comment on above: Performed By: #### C MP, LIPID, T4, TSH #### [facility] [address] [place] [address] Dr. Carol Montaño TSHon 07-07-2022 TSH 1.220 uIU/mL Normal 0.358-3.740 [facility] Comment on above: Performed By: #### C MP, LIPID, T4, TSH #### [facility] [address] [place] [address] Dr. Carol Montaño XR CHEST 2 Von [...] by: TAMMIE HARDIN Date: 2022-05-07 10:26 Normal [facility] Vital Signs Date Time Vital Sign Value Performing Clinician Facility 06-13-2024 14:22-0400 Body height 170.2 cm Sarina Phan DPM Work Phone: [facility] 06-13-2024 14:22-0400 Body mass index (BMI) [Ratio] 28.19 kg/m2 Sarina Phan DPM Work Phone: [facility] 06-13-2024 14:22-0400 Body weight 81.65 kg Sarinafelicitas Phan DPM Work Phone: [facility] 03-24-2024 09:52-0400 Body height 175.[address] [facility] 03-24-2024 09:52-0400 Body mass index (BMI) [Ratio] 25.8 kg/m2 [facility] 03-24-2024 09:52-0400 Body temperature 97.9 [degF] [facility] 03-24-2024 09:52-0400 Body weight 79.[address] [facility] 03-24-2024 09:52-0400 Diastolic blood pressure 82 mm[Hg] [facility] 03-24-2024 09:52-0400 Heart rate 71 /min [facility] 03-24-2024 09:52-0400 Respiratory rate 20 /min [facility] 03-24-2024 09:52-0400 SaO2% (BldA) [Mass fraction] 96 % [facility] 03-24-2024 09:52-0400 Systolic blood pressure 124 mm[Hg] [facility] 11-13-2023 08:31-0400 Body height 175.[address] [facility] 11-13-2023 08:31-0400 Body mass index (BMI) [Ratio] 25.9 kg/m2 [facility] 11-13-2023 08:31-0400 Body temperature 98.6 [degF] [facility] 11-13-2023 08:31-0400 Body weight 79.[address] [facility] 11-13-2023 08:31-0400 Diastolic blood pressure 66 mm[Hg] [facility] 11-13-2023 08:31-0400 Heart rate 72 /min [facility] 11-13-2023 08:31-0400 SaO2% (BldA) [Mass fraction] 92 % [facility] 11-13-2023 08:31-0400 Systolic blood pressure 103 mm[Hg] [facility] 06-04-2023 09:30-0400 Body height 175.26 cm Beverley Anaya Other [employer] [facility] [employer] Other 06-04-2023 09:30-0400 Body mass index (BMI) [Ratio] 25.69 kg/m2 Beverley Anaya Other [employer] Other 06-04-2023 09:30-0400 Body temperature 98.3 [degF] Beverley Anaya Other [employer] Other 06-04-2023 09:30-0400 Body weight 78.93 kg Beverley Anaya Other [employer] Other 06-04-2023 09:30-0400 Diastolic blood pressure 99 mm[Hg] Beverley Anaya Other [employer] Other 06-04-2023 09:30-0400 Respiratory rate 18 /min Beverley Anaya Other [employer] Other 06-04-2023 09:30-0400 SaO2% (BldA) [Mass fraction] 97 % Beverley Baileyler Other [employer] Other 06-04-2023 09:30-0400 Systolic blood pressure 127 mm[Hg] Beverley Anaya Other [employer] Other 03-31-2023 11:00-0400 Body height 175.26 cm Carley Jackson Other [employer] Other 03-31-2023 11:00-0400 Body mass index (BMI) [Ratio] 26.73 kg/m2 Carley Jackson Other [employer] Other 03-31-2023 11:00-0400 Body weight 82.1 kg Carlye Jackson Other [employer] Other 03-31-2023 11:00-0400 Diastolic blood pressure 74 mm[Hg] Carley Jackson Other [employer] Other 03-31-2023 11:00-0400 Systolic blood pressure 125 mm[Hg] Carley Jackson Other [employer] Other 11-05-2022 09:58-0400 Blood Pressure Location PALAK RUDD [facility] 11-05-2022 09:58-0400 Diastolic blood pressure 82 mm[Hg] PALAK RUDD [facility] 11-05-2022 09:58-0400 Heart rate 67 /min PALAK TOBIN [facility] 11-05-2022 09:58-0400 Systolic blood pressure 132 mm[Hg] PALAK RUDD [facility] Encounters Encounter Date Encounter Type Care Provider Facility Start: 06-13-2024 End: 06-13-2024 Office outpatient visit 15 minutes Sarina Phan DPM Work Phone: [facility] Comment on above: Onychodystrophy (Nicolette doris Dx); Left foot pain Start: 06-13-2024 End: 06-13-2024 ambulatory SARINA PHAN Not Available Start: 06-13-2024 End: 06-13-2024 Bamboo flowsheet Sarina Phan DPM Work Phone: [facility] Start: 06-13-2024 End: 06-13-2024 Bamboo flowsheet Sarina Phan DPM Work Phone: [facility] Start: 03-24-2024 End: 03-24-2024 ambulatory [facility] Work Phone: Start: 03-24-2024 End: 03-24-2024 Patient encounter procedure [facility] Work Phone: Start: 11-13-2023 End: 11-13-2023 ambulatory [facility] Work Phone: Start: 11-13-2023 End: 11-13-2023 Patient encounter procedure [facility] Work Phone: Start: 06-04-2023 End: 06-04-2023 ambulatory Beverley Anaya Other [employer] Other Start: 06-04-2023 Office outpatient vi sit 25 minutes Beverley Anaya [facility] Start: 05-29-2023 End: 05-29-2023 ambulatory Carley Jackson Other [employer] Other Start: 05-29-2023 Telephone encounter Carley Jackson [facility] Start: 04-08-2023 End: 04-08-2023 ambulatory Carley Jackson Other [employer] Other Start: 04-08-2023 Telephone encounter Carley Jackson [facility] Start: 03-31-2023 End: 03-31-2023 ambulatory Carley Jackson Other [employer] Other Start: 03-31-2023 Office outpatient ne w 30 minutes Carley Jackson [facility] Start: 01-27-2023 End: 01-28-2023 ambulatory PALAK E TOBIN Facility:[facility] Start: 01-27-2023 End: 01-27-2023 Patient encounter procedure PALAK Ashley TOBIN [facility] Start: 11-05-2022 End: 11-06-2022 ambulatory PALAK Ashley RUDD Facility:[facility] Start: 11-05-2022 End: 11-05-2022 Patient encounter procedure PALAK E TOBIN [facility] Start: 10-09-2022 End: 10-10-[address] FOREST TORRES . Facility:[facility] Start: 10-02-2022 ambulatory PALAK RUDD [facility] Start: 10-01-2022 End: 10-01-[address] FOREST TORRES . Facility:[facility] Start: 07-10-2022 Encounter for genera l adult medical examination without abnormal findings DR MACHO ARTEAGA [facility] Start: 07-07-2022 End: 07-08-[address] MACHO [...] procedure 06/13/2024 2:30 PM EDT Office Visit [facility] [address] [place] [id number] Sarina Phan DPM [address] [place] [address] Arrived [facility] Comment on above: Arrived Start: 04-24-2024 Influenza vaccination Influenz a Vaccine (#1) [facility] Start: 10-09-2023 Screening for malign ant neoplasm of breast Mammogram [facility] Start: 11-27-1997 Screening for malign ant neoplasm of cervix [facility] Start: 11-27-1988 Screening for malign ant neoplasm of cervix Pap Smear [facility] Start: 1965 Screening for malign ant neoplasm of colon [facility] CT Chest WO contrast [facility] XR Chest 2 Views [facility] Immunizations Immunization Date Immunization Notes Care Provider Marisela meza 09-19-2021 SARS-CoV-2 (COVID-19 ) mRNA BNT-162b2 vax PALAK RUDD [facility] 01-11-2021 SARS-CoV-2 (COVID-19 ) mRNA BNT-162b2 vax PALAK TOBIN [facility] 12-21-2020 SARS-CoV-2 (COVID-19 ) mRNA BNT-162b2 vax PALAK TOBIN [facility] Payers Date Payer Category Payer Private Health Insurance [employer] [id number] 1967 Unknown [id number] 1967 Unknown [id number]. [id number] 1967 Unknown [id number]. 593 1967 Unknown [id number]. 593 1967 Unknown [id number] 727 1967 Unknown [id number]. 727 1967 Unknown [id number] 727 1967 Unknown [id number] [id number] 1959 Unknown [id number] Social History Date Type Detail Facility Start: 11-05-2022 Tobacco smoking status Heavy t obacco smoker (finding) [facility] Tobacco smoking status Never [facility] Start: 02-02-2023 Sex Assigned At Female F [facility] Start: 11-12-2023 End: 03-24-2024 Tobacco smoking status NHIS Smoker (finding) [facility] Start: 1965 Sex Assigned At Female F [facility] Start: 02-02-2023 End: 06-13-2024 Tobacco smoking status NHIS Smokes tobacco daily [facility] History of tobacco use Cigarette Smoker [facility] Start: 02-02-2023 End: 06-13-2024 Tobacco use and exposure Smokeless tobacco non-user [facility] Start: 02-02-2023 End: 06-13-2024 Alcoholic beverage intake Current drinker of alcohol (finding) [facility] Start: 02-02-2023 End: 06-13-2024 Alcoholic beverage intake [facility] Start: 02-02-2023 Tobacco Comment Started smokin g at 18yo [facility] Start: 01-31-2023 Alcohol Comment 3-4 drinks for >4x a week in the past year, Caffeine intake: >4 cups per day [facility] Start: 1965 Sex assigned at Not on file N [facility] Functional Status Date Assessment Result Facility 11-05-2022 Functional Status N/A 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 Patient noted relief of symptoms [...] Sarina Phan DPM documented in this encounter [facility] 06-04-2023 Evaluation note Encounter Date Diagnosis [...] treatment plan. Patient left in stable condition [facility] 08-08-2023 Evaluation note* Encounter Date Diagnosis [...] Chronic problem - stable on present med. [facility] Other Evaluation + Plan note No data available for this section [facility] Catacel evaluation noteNo [employer] Other Evaluation note* Diagnosis Onset Date Resolution Status Bronchitis acute [facility] Work Phone: Evaluation note* Diagnosis Onset Date Resolution Status Abnormal finding on lung imaging acute Bronchiectasis, uncomplicated acute Cigarette nicotine dependenc e with nicotine-induced disorder acute Marijuana use acute Shortness of breath acute [facility] Work Phone: Evaluation note* Diagnosis Onychodystrophy- Primary Other specified disease of nail Left foot pain Pain in soft tissues of limb documented [facility] this [facility] - Reported* Type Description Date Medical History Depressed Medical History Bipolar 1 disorder Medical History Back pain Surgical History tonsillectomy Surgical History cholecystectomy Surgical History wisdom teeth [facility] Hospital Discharge instructions No data available for this section [facility] Catacel progress note No data available for this section [facility] Balanced Summary Purpose Family History No Family History [...] AUTHOR AUTHOR'S ORGANIZ ATION 02/01/2023 Gonsalves Mumtaz [facility] DATE CREATED AUTHOR AUTHOR'S ORGANIZ ATION 06/15/2024 [facility] EPIC Patient Care team informatio [...] March 24, 2024 End: March 24, 2024 [facility] DME Active Start : March 24, 2024 End: March 24, 2024 Chief Service Observer Relationship Specialty Start Date End Date Macho Arteaga MD [address] [place] [address] PCP - General Family Medicine 02/02/23 Chief Service Observer Relationship Specialty Start Date End Date Macho Arteaga MD [address] [place] [address] PCP - General Family Medicine 02/02/23 REASON [...] BE BASED ON THE PRIMARY CLINICAL RECORDS. [facility]. provides no warranty or guarantee of the accuracy or completeness of information in this document.
== END 2024-07-15 08:02 | disposition home or self-care (01) ==
LOC: CT 08:01
PROVIDERS: PCP Family Medicine; Visit Provider Internal Medicine
DX: Z12.31 Encounter for screening mammogram for malignant neoplasm of breast (principal); Z80.3 Family history of malignant neoplasm of breast; R91.8 Other nonspecific abnormal finding of lung field
CPT/HCPCS: 71250; 77063; 77067

== ENCOUNTER 2024-10-31 07:30 | Outpatient (OUT) | payer OTHER, SELFPAY ==
--- OUTSIDE RECORDS SUMMARY | 2024-10-31 07:35 | XMS_ITS | CCD ---
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] Medication Allergies] Propensity to adverse reactions (disorder) [facility] Repository Medications Current Medications Medication Drug Class(es) Dates Sig (Normalized) Sig (Original) ARIPiprazole 10 mg oral tablet (12 sources) Atypical Antipsychotic Start: 10-30-2022 End: 03-03-2024 take 1 tablet by mouth once daily Aripiprazole (Abilify) 10 mg tablet Active 10 MG PO Daily March 03, 2024 10:58am Calcium 1200 9252-0624 MG-UNIT (4 sources) take 1 tablet by mouth once daily Calcium 1200 5123-1893 MG-UNIT 1 tablet Orally Once a day [...] .Route March 24, 2024 9:46am As directed [facility] Start: 03-24-2024 End: 03-24-2024 Cpap (Continuous Positive rway Pressure) Discontinued 0 .Route March 24, 2024 12:00am March 24, 2024 9:46am As directed dextromethorphan hydrobromide 15 mg / guaiFENesin 400 mg / pseudoephedrine hydrochloride 60 mg oral tablet (1 source) alpha-Adrenergic Agonist, Uncompetitive L-kgmwkq-Q-aspartate Receptor Antagonist, Sigma-1 Agonist Start: 06-04-2023 take [...] 30 tab(s), Refills(s) 0, [facility]: [id number], 172, cm, 11/05/22 10:05:00 EDT, Height/Length Dosing, [...] a day for 30 days Active Vit S62-Riibaprlfx-Bkew-Rxxw (4 sources) Vit P01-Tgwmibwz lu-Iyea-Ossq Active Completed/Discontinued Medications Medication Drug Class(es) Dates [...] (COVID-19) RNA DAMARI+probe Ql (Unsp spec) Positive [facility] Other COVID/FLU RT-PCR Negative [facility] Other Quick Strepon 06-04-2023 S. pyogenes Org specific cx Ql (Throat) Negative [facility] Other Quick Strep [facility] Other Urology Office/Clinic Noteon 11-17-2022 Urology Office/Clinic [...] Daily, # 30 tab(s), Refills(s) 0, [facility]: [id number], 172, cm, 11/05/22 10:05:00 EDT, Height/Length Dosing, [...] mRNA BNT-162b2 vax 12/21/2020 Recorded Normal [facility] Comment on above: Result Comment: Elec tronically Signed By: TOBIN HAMILTON, PALAK Valentin\Date and Time Signed: 11/17/22 09:41 EDT MG MAMM SCREEN 3D NORMAN CADon 10-09-2022 MG MAMM SCREEN 3D NORMAN CAD Patient: TITA MITCHELL Exam Date: 10/09/2022 : 1965 Gender:F Ordering : DR FOREST TORRES . Admission #: [id number] Family : Order #: [id number] CLICK HERE TO VIEW EXAM RADIOLOGY REPORT [...] breast cancer at age 62. LOCATION: [facility] BREAST COMPOSITION: Heterogeneously dense,which may obscure [...] Hardin MD on 10/09/2022 at 10:[address] [facility] XR DEXA BONE DENSITYon 10-09 XR DEXA [...] by: DEMOND BELTRAN Date: 2022-10-09 10:[address] [facility] PAP ACOG PANEL 2: 30 to 65on 10-08-2022 . . Normal [facility] Comment on above: Result Comment: Perf ormed at: WB Performed By: #### [id number] #### [facility] [address] [place] [address] Dr. Carol Montaño Age Gdln ACOG Testing 30-[address] [facility] Comment on above: Performed By: #### [id number] #### [facility] [address] [place] [address] Dr. Carol Montaño DIAGNOSIS: Comment Normal [facility] Comment on above: Result Comment: NEGA TIVE FOR INTRAEPITHELIAL LESION OR MALIGNANCY. Performed at: WB Performed By: #### [id number] #### [facility] [address] [place] [address] Dr. Carol Montaño HPV Aptima Negative Normal Negative [facility] Comment on above: Result Comment: This nucleic acid amplification test detects fourteen high-risk HPV types (16,18,31,33,35,39,45,51,52,56,58,59,66,68) without differentiation. Performed at: =G Performed By: #### [id number] #### [facility] [address] [place] [address] Dr. Carol Montaño HPV Genotype Reflex Comment Normal [facility] Comment on above: Result Comment: Crit ercristina not met, HPV Genotype not performed. Performed at: WB Performed By: #### [id number] #### [facility] [address] [place] [address] Dr. Carol Montaño Methodology: Comment Normal [facility] Comment on above: Result Comment: This liquid based ThinPrep(R) pap test was screened with the use of an image guided system. Performed at: WB Performed By: #### [id number] #### [facility] [address] [place] [address] Dr. Carol Montaño Note: Comment Normal [facility] Comment on above: Result Comment: The Pap smear is a screening test designed to aid in the detection of premalignant and malignant conditions of the uterine cervix. It is not a diagnostic procedure and should not be used as the sole means of detecting cervical cancer. Both false-positive and false-negative reports do occur. . Performed at: WB Performed By: #### [id number] #### [facility] [address] [place] [address] Dr. Carol Montaño Performed by: Comment Normal [facility] Comment on above: Result Comment: Nel Tucker, Supervisor [employer] Former (ASCP) Performed at: WB Performed By: #### [id number] #### [facility] [address] [place] [address] Dr. Carol Montaño Specimen adequacy: Comment Normal [facility] Comment on above: Result Comment: Sati sfactory for evaluation. Endocervical and/or squamous metaplastic cells (endocervical component) are present. Performed at: WB Performed By: #### [id number] #### [facility] [address] [place] [address] Dr. Carol Montaño CBC AUTO DIFFon 07-07-2022 BASO # 0.1 103/ul Normal 0.0-0.[address] [facility] Comment on above: Performed By: #### C BC #### [facility] [address] [address] [address] Carol Montaño Basophils/100 WBC (Bld) 1.0 % Normal 0.2-2.[address] [facility] Comment on above: Performed By: #### C BC #### [facility] [address] [place] [address] Dr. Carol Montaño EO # 0.5 103/ul Normal 0.0-0.[address] [facility] Comment on above: Performed By: #### C BC #### [facility] [address] [place] [address] Dr. Carol Montaño Eosinophils/100 WBC (Bld) 5.7 % Normal 0.9-7.[address] [facility] Comment on above: Performed By: #### C BC #### [facility] [address] [place] [address] Dr. Carol Montaño Erythrocyte distribution width (RBC) [Ratio] 12.5 % Normal 11.0-15.[address] [facility] Comment on above: Performed By: #### C BC #### [facility] [address] [place] [address] Dr. Carol Montaño Hematocrit (Bld) [Volume fraction] 46.7 % Normal 36.0-48.[address] [facility] Comment on above: Performed By: #### C BC #### [facility] [address] [place] [address] Dr. Carol Montaño Hemoglobin (Bld) [Mass/Vol] 15.5 g/dL Normal 12.0-16.[address] [facility] Comment on above: Performed By: #### C BC #### [facility] [address] [place] [address] Dr. Carol Montaño IG # 0.03 10e3/ul Normal 0.00-0.[address] [facility] Comment on above: Performed By: #### C BC #### [facility] [address] [place] [address] Dr. Carol Montaño IG % 0.4 % Normal 0.0-0.[address] [facility] Comment on above: Performed By: #### C BC #### [facility] [address] [place] [address] Dr. Carol Montaño LYMPH # 3.2 103/ul Normal 1.2-3.[address] [facility] Comment on above: Performed By: #### C BC #### [facility] [address] [place] [address] Dr. Carol Montaño Lymphocytes/100 WBC (Bld) 38.8 % Normal 20.5-60.[address] [facility] Comment on above: Performed By: #### C BC #### [facility] [address] [place] [address] Dr. Carol Montaño MANUAL DIFF REQ NO Normal [facility] Comment on above: Performed By: #### C BC #### [facility] [address] [place] [address] Dr. Carol Montaño MCH (RBC) [Entitic mass] 30.5 pg Normal 26.7-34.[address] [facility] Comment on above: Performed By: #### C BC #### [facility] [address] [place] [address] Dr. Carol Montaño MCHC (RBC) [Mass/Vol] 33.2 g/dL Normal 29.9-35.[address] [facility] Comment on above: Performed By: #### C BC #### [facility] [address] [place] [address] Dr. Carol Montaño MCV (RBC) [Entitic vol] 91.7 fL Normal 81.0-99.[address] [facility] Comment on above: Performed By: #### C BC #### [facility] [address] [place] [address] Dr. Carol Montaño MONO # 0.5 103/ul Normal 0.3-0.[address] [facility] Comment on above: Performed By: #### C BC #### [facility] [address] [place] [address] Dr. Carol Montaño Monocytes/100 WBC (Bld) 6.6 % Normal 1.7-12.[address] [facility] Comment on above: Performed By: #### C BC #### [facility] [address] [place] [address] Dr. Carol Montaño NEUT # 3.9 103/ul Normal 1.4-6.[address] [facility] Comment on above: Performed By: #### C BC #### [facility] [address] [place] [address] Dr. Carol Montaño Neutrophils/100 WBC (Bld) 47.5 % Normal 43.0-75.[address] [facility] Comment on above: Performed By: #### C BC #### [facility] [address] [place] [address] Dr. Carol Montaño Platelet mean volume (Bld) [Entitic vol] 9.9 fL Normal 9.5-13.[address] [facility] Comment on above: Performed By: #### C BC #### [facility] [address] [place] [address] Dr. Carol Montaño PLT 324 103/ul Normal 150-[address] [facility] Comment on above: Performed By: #### C BC #### [facility] [address] [place] [address] Dr. Carol Montaño RBC 5.09 106/ul Normal 4.20-5.[address] [facility] Comment on above: Performed By: #### C BC #### [facility] [address] [place] [address] Dr. Carol Montaño WBC 8.2 103/ul Normal 4.0-11.[address] [facility] Comment on above: Performed By: #### C BC #### [facility] [address] [place] [address] Dr. Carol Montaño LIPID PROFILEon 07-07-2022 CHOL-HDL RATIO NORM SEE BELOW Normal [facility] Comment on above: Result Comment: 3.3 - 4.4 LOW RISK 4.4 - 7.1 AVERAGE RISK 7.1 - 11.0 MODERATE RISK >11.0 HIGH RISK Performed By: #### C MP, LIPID, T4, TSH #### [facility] [address] [place] [address] Dr. Carol Montaño Cholesterol [Mass/Vol] 233 mg/dL Critically high <=[address] [facility] Comment on above: Performed By: #### C MP, LIPID, T4, TSH #### [facility] [address] [address] [address] Carol Montaño Cholesterol in HDL [Mass/Vol] 61 mg/dL Critically high 40-[address] [facility] Comment on above: Performed By: #### C MP, LIPID, T4, TSH #### [facility] [address] [address] [address] Carol Montaño Cholesterol in LDL [Mass/Vol] 154.8 mg/dL Normal [facility] Comment on above: Performed By: #### C MP, LIPID, T4, TSH #### [facility] [address] [address] [address] Carol Montaño Cholesterol.total /Cholesterol in HDL [Mass ratio] 3.8 {ratio} Normal [facility] Comment on above: Performed By: #### C MP, LIPID, T4, TSH #### [facility] [address] [address] [address] Carol Montaño HDL NORMAL > or = 60 mg/dl - LO W CARDIOVASCULAR RISK <40 mg/dl - HIGH CARDIOVASCULAR RISK Normal [facility] Comment on above: Performed By: #### C MP, LIPID, T4, TSH #### [facility] [address] [place] [address] Dr. Carol Montaño LDL CALC NORMAL SEE BELOW Normal [facility] Comment on above: Result Comment: <100 mg/dl OPTIMAL 100 - 129 mg/dl NEAR OR ABOVE OPTIMAL 130 - 159 mg/dl BORDERLINE HIGH 160 - 189 mg/dl HIGH >190 mg/dl VERY HIGH Performed By: #### C MP, LIPID, T4, TSH #### [facility] [address] [place] [address] Dr. Carol Montaño Triglyceride [Mass/Vol] 86 mg/dL Normal <=[address] [facility] Comment on above: Performed By: #### C MP, LIPID, T4, TSH #### [facility] [address] [place] [address] Dr. Carol Montaño VLDL CALC 17.2 mg/dL Normal [facility] Comment on above: Performed By: #### C MP, LIPID, T4, TSH #### [facility] [address] [address] [address] Carol Montaño PROF 14(COMP METB)on 022 Albumin [Mass/Vol] 3.9 g/dL Normal 3.4-5.[address] [facility] Comment on above: Performed By: #### C MP, LIPID, T4, TSH #### [facility] [address] [place] [address] Dr. Carol Montaño Albumin/Globulin [Mass ratio] 1.2 {ratio} Normal [facility] Comment on above: Performed By: #### C MP, LIPID, T4, TSH #### [facility] [address] [place] [address] Dr. Carol Montaño ALP [Catalytic activity/Vol] 81 U/L Normal 46-[address] [facility] Comment on above: Performed By: #### C MP, LIPID, T4, TSH #### [facility] [address] [place] [address] Dr. Carol Montaño ALT [Catalytic activity/Vol] 10 U/L Critically low 14-[address] [facility] Comment on above: Performed By: #### C MP, LIPID, T4, TSH #### [facility] [address] [address] [address] Carol Montaño Anion gap [Moles/Vol] 8.8 mmol/L Normal [facility] Comment on above: Performed By: #### C MP, LIPID, T4, TSH #### [facility] [address] [place] [address] Dr. Carol Montaño AST [Catalytic activity/Vol] 16 U/L Normal 15-[address] [facility] Comment on above: Performed By: #### C MP, LIPID, T4, TSH #### [facility] [address] [address] [address] Carol Montaño Bilirubin [Mass/Vol] 0.4 mg/dL Normal 0.2-1.[address] [facility] Comment on above: Performed By: #### C MP, LIPID, T4, TSH #### [facility] [address] [address] [address] Carol Montaño Calcium [Mass/Vol] 9.4 mg/dL Normal 8.5-10.[address] [facility] Comment on above: Performed By: #### C MP, LIPID, T4, TSH #### [facility] [address] [place] [address] Dr. Carol Montaño Chloride [Moles/Vol] 102 mmol/L Normal 98-[address] [facility] Comment on above: Performed By: #### C MP, LIPID, T4, TSH #### [facility] [address] [place] [address] Dr. Carol Montaño CO2 [Moles/Vol] 31.1 mmol/L Normal 21.0-32.0 [facility] Comment on above: Performed By: #### C MP, LIPID, T4, TSH #### [facility] [address] [place] [address] Dr. Carol Montaño Creatinine [Mass/Vol] 0.74 mg/dL Normal 0.55-1.[address] [facility] Comment on above: Performed By: #### C MP, LIPID, T4, TSH #### [facility] [address] [place] [address] Dr. Carol Montaño EGFR-AF TRISTANIAN >60 Normal >=60 [facility] Comment on above: Performed By: #### C MP, LIPID, T4, TSH #### [facility] [address] [place] [address] Dr. Carol Montaño EGFR-NON AF TRISTANIAN >60 Normal >=[address] [facility] Comment on above: Performed By: #### C MP, LIPID, T4, TSH #### [facility] [address] [place] [address] Dr. Carol Montaño Globulin (S) [Mass/Vol] 3.2 g/dL Normal [facility] Comment on above: Performed By: #### C MP, LIPID, T4, TSH #### [facility] [address] [place] [address] Dr. Carol Montaño Glucose [Mass/Vol] 87 mg/dL Normal 74-[address] [facility] Comment on above: Performed By: #### C MP, LIPID, T4, TSH #### [facility] [address] [place] [address] Dr. Carol Montaño Potassium [Moles/Vol] 3.9 mmol/L Normal 3.5-5.[address] [facility] Comment on above: Performed By: #### C MP, LIPID, T4, TSH #### [facility] [address] [place] [address] Dr. Carol Montaño Protein [Mass/Vol] 7.1 g/dL Normal 6.4-8.[address] [facility] Comment on above: Performed By: #### C MP, LIPID, T4, TSH #### [facility] [address] [place] [address] Dr. Carol Montaño Sodium [Moles/Vol] 138 mmol/L Normal 136-[address] [facility] Comment on above: Performed By: #### C MP, LIPID, T4, TSH #### [facility] [address] [place] [address] Dr. Carol Montaño Urea nitrogen [Mass/Vol] 10.0 mg/dL Normal 7.0-18.[address] [facility] Comment on above: Performed By: #### C MP, LIPID, T4, TSH #### [facility] [address] [place] [address] Dr. Carol Montaño Urea nitrogen/Creatini ne [Mass ratio] 13.5 mg/mg Normal [facility] Comment on above: Performed By: #### C MP, LIPID, T4, TSH #### [facility] [address] [place] [address] Dr. Carol Montaño T4on 07-07-2022 T4 [Mass/Vol] 7.10 ug/dL Normal 4.80-13.90 [facility] Comment on above: Performed By: #### C MP, LIPID, T4, TSH #### [facility] [address] [place] [address] Dr. Carol Montaño TSHon 07-07-2022 TSH 1.220 uIU/mL Normal 0.358-3.740 [facility] Comment on above: Performed By: #### C MP, LIPID, T4, TSH #### [facility] [address] [place] [address] Dr. Carol Montaño XR CHEST 2 Von [...] by: TAMMIE HARDIN Date: 2022-05-07 10:[address] [facility] Vital Signs Date Time Vital Sign Value Performing Clinician Facility 06-13-2024 14:22-0400 Body height 170.2 cm Sarina Phan DPM Work Phone: [facility] 06-13-2024 14:22-0400 Body mass index (BMI) [Ratio] 28.19 kg/m2 Sarina Phan DPM Work Phone: [facility] 06-13-2024 14:22-0400 Body weight 81.65 kg Sarinafelicitas Phan DPM Work Phone: [facility] 03-24-2024 09:52-0400 Body height 175.26 cm [facility] 03-24-2024 09:52-0400 Body mass index (BMI) [Ratio] 25.8 kg/m2 [facility] 03-24-2024 09:52-0400 Body temperature 97.9 [degF] [facility] 03-24-2024 09:52-0400 Body weight 79.37 kg [facility] 03-24-2024 09:52-0400 Diastolic blood pressure 82 mm[Hg] [facility] 03-24-2024 09:52-0400 Heart rate 71 /min [facility] 03-24-2024 09:52-0400 Respiratory rate 20 /min [facility] 03-24-2024 09:52-0400 SaO2% (BldA) [Mass fraction] 96 % [facility] 03-24-2024 09:52-0400 Systolic blood pressure 124 mm[Hg] [facility] 11-13-2023 08:31-0400 Body height 175.26 cm [facility] 11-13-2023 08:31-0400 Body mass index (BMI) [Ratio] 25.9 kg/m2 [facility] 11-13-2023 08:31-0400 Body temperature 98.6 [degF] [facility] 11-13-2023 08:31-0400 Body weight 79.88 kg [facility] 11-13-2023 08:31-0400 Diastolic blood pressure 66 mm[Hg] [facility] 11-13-2023 08:31-0400 Heart rate 72 /min [facility] 11-13-2023 08:31-0400 SaO2% (BldA) [Mass fraction] 92 % [facility] 11-13-2023 08:31-0400 Systolic blood pressure 103 mm[Hg] [facility] 06-04-2023 09:30-0400 Body height 175.26 cm Beverley Anaya Other [facility] Other 06-04-2023 09:30-0400 Body mass index (BMI) [Ratio] 25.69 kg/m2 Beverley Anaya Other [facility] Other 06-04-2023 09:30-0400 Body temperature 98.3 [degF] Beverlye Anaya Other [facility] Other 06-04-2023 09:30-0400 Body weight 78.93 kg Beverley Anaya Other [facility] Other 06-04-2023 09:30-0400 Diastolic blood pressure 99 mm[Hg] Beverley Anaya Other [facility] Other 06-04-2023 09:30-0400 Respiratory rate 18 /min Beverley Anaya Other [facility] Other 06-04-2023 09:30-0400 SaO2% (BldA) [Mass fraction] 97 % Beverley Baileyler Other [facility] Other 06-04-2023 09:30-0400 Systolic blood pressure 127 mm[Hg] Beverley Anaya Other [facility] Other 03-31-2023 11:00-0400 Body height 175.26 cm Carley Jackson Other [facility] Other 03-31-2023 11:00-0400 Body mass index (BMI) [Ratio] 26.73 kg/m2 Carley Jackson Other [facility] Other 03-31-2023 11:00-0400 Body weight 82.1 kg Carley Jackson Other [facility] Other 03-31-2023 11:00-0400 Diastolic blood pressure 74 mm[Hg] Carley Jackson Other [facility] Other 03-31-2023 11:00-0400 Systolic blood pressure 125 mm[Hg] Carley Jackson Other [facility] Other 11-05-2022 09:58-0400 Blood Pressure Location PALAK RUDD [facility] 11-05-2022 09:58-0400 Diastolic blood pressure 82 mm[Hg] PALAK RUDD [facility] 11-05-2022 09:58-0400 Heart rate 67 /min PALAK TOBIN [facility] 11-05-2022 09:58-0400 Systolic blood pressure 132 mm[Hg] PALAK RUDD [facility] Encounters Encounter Date Encounter Type Care Provider Facility Start: 06-13-2024 End: 06-13-2024 Office outpatient visit 15 minutes Sarina Phan DPM Work Phone: [facility] Comment on above: Onychodystrophy (Nicolette doris Dx); Left foot pain Start: 06-13-2024 End: 06-13-2024 ambulatory SARINA PHAN Not Available Start: 06-13-2024 End: 06-13-2024 Bamboo flowsheet Sarina Phan DPM Work Phone: [facility] Start: 06-13-2024 End: 06-13-2024 Bamboo flowsheet Sarina Phan DPM Work Phone: [facility] Start: 03-24-2024 End: 03-24-2024 ambulatory [facility] Work Phone: Start: 03-24-2024 End: 03-24-2024 Patient encounter procedure [facility] Work Phone: Start: 11-13-2023 End: 11-13-2023 ambulatory [facility] Work Phone: Start: 11-13-2023 End: 11-13-2023 Patient encounter procedure [facility] Work Phone: Start: 06-04-2023 End: 06-04-2023 ambulatory Beverley Anaya Other [facility] [employer] Other Start: 06-04-2023 Office outpatient vi sit 25 minutes Beverley Anaya [facility] Start: 05-29-2023 End: 05-29-2023 ambulatory Carley Jackson Other [facility] [employer] Other Start: 05-29-2023 Telephone encounter Carley Jackson [facility] Start: 04-08-2023 End: 04-08-2023 ambulatory Carley Jackson Other [facility] Other Start: 04-08-2023 Telephone encounter Carley Jackson [facility] Start: 03-31-2023 End: 03-31-2023 ambulatory Carley Jackson Other [facility] Other Start: 03-31-2023 Office outpatient ne w 30 minutes Carley Jackson [facility] Start: 01-27-2023 End: 01-28-2023 ambulatory PALAK E TOBIN Facility:[facility] Start: 01-27-2023 End: 01-27-2023 Patient encounter procedure PALAK Ashley TOBIN [facility] Start: 11-05-2022 End: 11-06-2022 ambulatory PALAK Ashley RUDD Facility:[facility] Start: 11-05-2022 End: 11-05-2022 Patient encounter procedure PALAK E TOBIN [facility] Start: 10-09-2022 End: 10-10-[address] FOREST TORRES . Facility:[facility] Start: 10-02-2022 ambulatory PALAK RUDD Facility :[facility] Start: 10-01-2022 End: 10-01-[address] FOREST TORRES . Facility:[facility] Start: 07-10-2022 Encounter for genera l adult medical examination without abnormal findings DR MACHO ARTEAGA [facility] Start: 07-07-2022 End: 07-08-[address] MACHO [...] procedure 06/13/2024 2:30 PM EDT Office Visit [facility] [address] [place] [id number] Sarina Phan DPM [address] [place] [address] Arrived [facility] Comment on above: Arrived Start: 04-24-2024 Influenza vaccination Influenz a Vaccine (#1) [facility] Start: 10-09-2023 Screening for malign ant neoplasm of breast Mammogram [facility] Start: 11-27-1997 Screening for malign ant neoplasm of cervix [facility] Start: 11-27-1988 Screening for malign ant neoplasm of cervix Pap Smear [facility] Start: 1965 Screening for malign ant neoplasm of colon [facility] CT Chest WO contrast [facility] XR Chest 2 Views [facility] Immunizations Immunization Date Immunization Notes Care Provider Marisela meza 09-19-2021 SARS-CoV-2 (COVID-19 ) mRNA BNT-162b2 vax PALAK RUDD [facility] 01-11-2021 SARS-CoV-2 (COVID-19 ) mRNA BNT-162b2 vax PALAK TOBIN [facility] 12-21-2020 SARS-CoV-2 (COVID-19 ) mRNA BNT-162b2 vax PALAK TOBIN [facility] Payers Date Payer Category Payer Private Health Insurance [employer] [id number] 1965 Unknown [id number] 1967 Unknown [id number] 593 1967 Unknown [id number] 593 1967 Unknown [id number] 593 1967 Unknown [id number] 727 1967 Unknown [id number]. 727 1967 Unknown [id number] 727 1967 Unknown [id number] 1259 1959 Unknown [id number] Social History Date Type Detail Facility Start: 11-05-2022 Tobacco smoking status Heavy t obacco smoker (finding) [facility] Tobacco smoking status Never [facility] Start: 02-02-2023 Sex Assigned At Female F [facility] Start: 11-12-2023 End: 03-24-2024 Tobacco smoking status NHIS Smoker (finding) [facility] Start: 1965 Sex Assigned At Female F [facility] Start: 02-02-2023 End: 06-13-2024 Tobacco smoking status NHIS Smokes tobacco daily [facility] History of tobacco use Cigarette Smoker N [facility] Start: 02-02-2023 End: 06-13-2024 Tobacco use and exposure Smokeless tobacco non-user [facility] Start: 02-02-2023 End: 06-13-2024 Alcoholic beverage intake Current drinker of alcohol (finding) [facility] Start: 02-02-2023 End: 06-13-2024 Alcoholic beverage intake [facility] Start: 02-02-2023 Tobacco Comment Started smokin g at 18yo [facility] Start: 01-31-2023 Alcohol Comment 3-4 drinks for >4x a week in the past year, Caffeine intake: >4 cups per day [facility] Start: 1965 Sex assigned at Not on file [facility] Functional Status Date Assessment Result Facility 11-05-2022 Functional Status N/A [facility] Clinical Notes 03-31-2023 to 06-13-2024 Sarina [...] utilizing a nail Nipper and electric bur disc pad grinder with incident. Patient noted relief of [...] Sarina Phan DPM documented in this encounter [facility] 06-04-2023 Evaluation note Encounter [...] treatment plan. Patient left in stable condition [employer] Other 08-08-2023 Evaluation note* Encounter Date Diagnosis [...] Chronic problem - stable on present med. 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 acute Marijuana use acute Shortness of breath acute [facility] Work Phone: Evaluation note* Diagnosis Onychodystrophy- Primary Other specified disease of nail Left foot pain Pain in soft tissues of limb [facility] - Reported* Type Description Date Medical History Depressed Medical History Bipolar 1 disorder Medical History Back pain Surgical History tonsillectomy Surgical History cholecystectomy Surgical History wisdom teeth [employer] Other Hospital Discharge instructions No data available for this section [facility] [employer] progress note No data available for this section [facility] [email or web address] Summary Purpose Family History No Family History [...] AUTHOR AUTHOR'S ORGANIZ ATION 02/01/2023 Gonsalves Mumtaz [facility] DATE CREATED AUTHOR AUTHOR'S ORGANIZ ATION 06/15/2024 [facility] EPIC Patient Care team informatio [...] March 24, 2024 End: March 24, 2024 [facility] Active Start : March 24, 2024 End: March 24, 2024 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 [employer] [facility]. provides no warranty or guarantee of the accuracy or completeness of information in this document.
[2024-10-31 08:33] LABS: Chol HDL Ratio 3.4; Cholesterol 216 mg/dL (<=200); HDL Cholesterol 63 mg/dL (40-60); Triglycerides 131 mg/dL (<=150); VLDL CHOLESTEROL 26.2 mg/dL
== END 2024-10-31 07:31 | disposition home or self-care (01) ==
LOC: LAB 07:32
PROVIDERS: PCP Family Medicine; Visit Provider Family Medicine
DX: Z00.00 Encounter for general adult medical examination without abnormal findings (principal)
CPT/HCPCS: 36415; 80061

== ENCOUNTER 2025-01-25 13:41 | Outpatient (OUT) | payer OTHER, SELFPAY ==
--- NOTE | 2025-01-25 13:51 | XR_ITS ---
[address] [address] Patient Name: JUNIOR ASENCIO MRN: [id number] date: 1965 Sex: F Assigned Patient Location: [facility] Current Patient Location: [facility] Accession/Order Number: [id number] Exam Date: 01/25/2025 15:32 Report Date: 01/25/2025 15:33 At the request of: NON-STAFF PHYSICIAN MD Procedure: XR elbow LT min 3V 3 viewselbow plain film COMPARISON :None HISTORY: Left elbow pain for one year. ACUTE FINDINGS: None DEGENERATIVE CHANGE: Lateral epicondylar spurring SOFT TISSUE FINDINGS: Olecranon bursitis/soft tissue swelling JOINT EFFUSION: None POSTOP CHANGES: None BONE MINERALIZATION: Adequate XR/XR elbow LT min 3V IMPRESSION: Olecranon bursitis/soft tissue swelling Impression dictated by: Derrick Marquez M.D. 01/25/2025 3:33 PM Dictation Location: [facility]ITAL[facility]orrow Electronically authenticated by: [id number] Date: 01/25/2025 15:33
== END 2025-01-25 13:42 | disposition home or self-care (01) ==
LOC: RAD 13:43
PROVIDERS: PCP Family Medicine
DX: M25.522 Pain in left elbow (principal); M25.422 Effusion, left elbow; Z01.419 Encounter for gynecological examination (general) (routine) without abnormal findings; M70.22 Olecranon bursitis, left elbow
CPT/HCPCS: 73080; 87624; 88175

== ENCOUNTER 2025-01-25 20:55 | Outpatient (REF) | payer OTHER, SELFPAY ==
--- OUTSIDE RECORDS SUMMARY | 2025-01-25 21:01 | XMS_ITS | CCD ---
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 Name Role Phone TREMAINE ., DR GARG Admitting Unavailable TREMAINE ., DR GARG Attending Unavailable HOUSE, DR AQUINO Primary Care Unavailable [place], DR TAMMIE Freedman Consulting Unavailable TREMAINE ., DR GARG Consulting Unavailable Zieber, Demond Consulting Unavailable MERIDEN, DR AQUINO Admitting Unavailable HOUSE, DR AQUINO Attending Unavailable HOUSE, DR AQUINO Primary Care Unavailable [place], DR TAMMIE Freedman Consulting Unavailable HOUSE, DR AQUINO Consulting Unavailable MERID[place], DR AQUINO Admitting Unavailable HOUSE, DR AQUINO Attending Unavailable HOUSE, DR AQUINO Primary Care Unavailable HOUSE, DR AQUINO Consulting Unavailable TREMAINE ., DR GARG Admitting Unavailable TREMAINE ., DR GARG Attending Unavailable HOUSE, DR AQUINO Primary Care Unavailable TREMAINE ., DR GARG Consulting Unavailable Macho Arteaga Primary Care Physician PATRICIA RUDD Attending Unavailable PATRICIA RUDD Attending Unavailable Forest TORRES Referring Unavailable Carley Lagos Unavailable Beverley Anaya Unavailable Macho Arteaga MD Primary Care Provider SARINA PHAN Attending Unavailable Carley Lagos MD Primary Care Provider [phone] Marcela Lynne DO Attending Provider Marcela Lynne Attending Unavailable Marcela Lynne Admitting Unavailable Carley Lagos Primary Care Unavailable CARLEY LAGOS Unavailable Allergies Allergy Classification Reported Allergen(s) Allergy Type Date of Onset Reaction(s) Facility (1 source) No Known Medication Allergies; Translations: [No Known Medication Allergies] Propensity to adverse reactions (disorder) [facility] Repository Medications Current Medications Medication Drug Class(es) Dates Sig (Normalized) Sig (Original) ARIPiprazole (20 sources) Atypical Antipsychotic Start: 08-15-2024 Aripiprazole 10 mg tablet Active 0 .ROUTE .COMPLEX 90 August 15, 2024 10:37pm TAKE 1 TABLET DAILY Start: 10-30-2022 End: 08-15-2024 Aripiprazole (Abilify) 10 mg tablet Discontinued MG PO November 12, 2023 12:00am March 03, 2024 10:59am FreeTextSig: Orally; Note: Source Status: Taking; Provider: Héctor Lowery ( ) Calcium 1200 3898-6898 MG-UNIT (4 sources) take 1 tablet by mouth once daily Calcium 1200 6084-1262 MG-UNIT 1 tablet Orally Once a day [...] March 24, 2024 9:46am As directed [facility] Start: 03-24-2024 End: 03-24-2024 Cpap (Continuous Positive rway Pressure) Discontinued 0 .Route March 24, 2024 12:00am March 24, 2024 9:46am As directed Cpap (Continuous Positive rway Pressure) unit (6 sources) Start: 03-24-2024 Cpap (Continuo us Positive Airway Pressure) unit Active 0 .Route March 24, 2024 9:46am As directed [facility] Start: 03-24-2024 End: 03-24-2024 Cpap (Continuous Positive rway Pressure) unit Discontinued 0 .Route March 24, 2024 12:00am March 24, 2024 9:46am As directed dextromethorphan hydrobromide 15 mg / guaiFENesin 400 mg / pseudoephedrine hydrochloride 60 mg oral tablet (1 source) alpha-Adrenergic Agonist, Uncompetitive J-fxzluk-H-aspartate Receptor Antagonist, Sigma-1 Agonist Start: 06-04-2023 take [...] capsule by mouth in the morning. Active Tiotropium-Olodatero l (3 sources) Anticholinergic, beta2-Adrenergic Agonist Start: 06-30-2024 Tiotropium-Olodater ol (Stiolto Respimat) 2.5-2.5 mcg/actuation mist Active 2 PUFF INHALATION Daily June 30, 2024 1:00am 24 hr oxybutynin chloride 5 mg extended release oral tablet (1 source) Cholinergic Muscarinic Antagonist Start: 11-17-2022 take 1 tablet by mouth once daily oxybutynin 5 mg ER Tab 5 mg = 1 tab(s), Oral, Daily, # 30 tab(s), Refills(s) 0, Pharmacy: [facility] #[id number], 172, cm, 11/05/22 10:05:00 EDT, Height/Length Dosing, 80, kg, 11/05/22 10:05:00 EDT, Weight Dosing Start Date: 11/17/22 Status: Ordered predniSONE 20 mg oral tablet (1 source) Start: 06-04-2023 take 1 tablet by mouth every twelve hours prednisone 20 MG 1 tablet Orally BID for 5 May, Active Vit N33-Dfugybhlfr-Drbm- Chol (4 sources) Vit Z50-Ystvhbjcln-Ceqv -Chol Active Completed/Discontinued Medications Medication Drug Class(es) Dates Sig (Normalized) Sig (Original) azithromycin 250 mg oral tablet (4 sources) Macrolide Antimicrobial Start: 11-13-2023 End: 03-23-2024 Azithromycin 250 mg tablet Discontinued 0 PO .COMPLEX 6 November 13, 2023 12:00am March 23, 2024 1:58pm For 250 mg dose pack: take 500 mg today (day 1), then 250 mg for 4 days (days 2-5) PO Start: 11-13-2023 End: 03-23-2024 Azithromycin Discontinued 0 PO .COMPLEX 6 November 13, 2023 12:00am March 23, 2024 1:58pm For 250 mg dose pack: take 500 mg today (day 1), then 250 mg for 4 days (days 2-5) PO calcium carbonate 1250 mg oral tablet (3 sources) Start: 10-26-2024 End: 10-27-2024 take 1 tablet by mouth once daily Calcium Carbonate 500 mg calcium (1,250 mg) tablet Discontinued 500 MG PO Daily October 26, 2024 1:00am October 27, 2024 2:05pm cefdinir 300 mg oral capsule (3 sources) Cephalosporin Antibacterial Start: 11-02-2024 End: 01-23-2025 take 1 capsule by mouth twice daily Cefdinir 300 mg capsule Discontinued 300 MG PO Twice daily 14 November 02, 2024 12:00am December 13, 2024 9:06am Ketorolac (4 sources) Nonsteroidal Anti-inflammatory Drug, Cyclooxygenase Inhibitor Start: 07-16-2016 Toradol per 15 mg Jun, 60 mg methylPREDNISolone 4 mg oral tablet (8 sources) Corticosteroid Start: 11-13-2023 End: 03-23-2024 Methylprednisolone 4 mg tablets,dose pack Discontinued 0 PO per package directions November 13, 2023 12:00am March 23, 2024 1:58pm PO PER PKG DIR for 6 days Start: 11-13-2023 End: 03-23-2024 Methylprednisolone Discontin ued 0 PO per package directions November 13, 2023 12:00am March 23, 2024 1:58pm PO PER PKG DIR for 6 days Start: 05-02-2014 Depo-Medrol 80 mg Apr, 80 mg 24 hr tolterodine tartrate 4 mg extended release oral capsule (12 sources) Cholinergic Muscarinic Antagonist Start: 11-12-2023 End: 03-24-2024 take 1 capsule by mouth once daily Tolterodine 4 mg capsule,extended release 24hr Discontinued 1 CAP PO Daily November 12, 2023 12:00am March 24, 2024 9:51am FreeTextSi capsule Orally Once a day; Note: Source Status: Taking; Provider: Héctor Lowery ( ) take 1 capsule by mo [facility] every twenty-four hours in the morning tolterodine LA (Detrol LA) 4 MG 24 hr capsule Take 4 mg by mouth in the morning. Do not crush, chew, or split. . Active take 1 capsule by mo ut every twenty-four hours Tolterodine Tartrate ER 4 MG 1 capsule Orally Once a day Active vilazodone hydrochloride 20 mg oral tablet (20 sources) Start: 11-12-2023 End: 10-27-2024 take 1 tablet by mouth once daily at mealtime Vilazodone 20 mg tablet Discontinued 20 MG PO Daily March 03, 2024 10:58am October 27, 2024 2:25pm must administer with a meal/food Start: 10-30-2022 vilazodone 10 mg oral tablet Refills(s) 0 Start Date: 10/30/22 Status: Ordered vitamin b12 1 mg oral capsule (3 sources) Vitamin B12 Start: 10-26-2024 End: 10-27-2024 take 1 capsule by mouth every month Cyanocobalamin (Vitamin B-12) 1,000 mcg capsule Discontinued 1000 MCG PO every month October 26, 2024 1:00am October 27, 2024 2:05pm Problems Active Problems Problem Classification Problem Date Documented Da te Episodic/Chronic Chronic obstructive pulmonary disease and bronchiectasis (5 sources) Bronchiectasis; Translations: [Bronchiectasis, uncomplicated] 03-24-2024 Chronic Chronic obstructive pulmonary disease and bronchiectasis (6 sources) Bronchitis; Translations: [Bronchitis, not specified as [...] HUMAN PAPILLOMAVIRUS] Onset: 10-02-2022 Episodic Mood disorders (10 sources) Depressive disorder; Translations: [Bipolar disorder, unspecified] Onset: 01-23-2025 11-05-2022 Chronic Other bone disease and musculoskeletal [...] 05-11-2022 03-24-2024 Episodic Other lower respiratory disease (5 sources) Multiple nodules of lung; Translations: [Other nonspecific abnormal finding of lung field] 11-10-2023 Episodic Other lower respiratory disease (4 sources) Dyspnea; Translations: [Shortness of breath] 03-24-2024 Episodic Other lower respiratory disease (4 sources) Abnormal findings on diagnostic imaging of lung; Translations: [Other nonspecific abnormal finding of lung field] 03-24-2024 Episodic Other lower respiratory disease (1 source) Other nonspecific abnormal finding of lung field; Translations: [Other nonspecific abnormal finding of lung field] 03-24-2024 Episodic Other screening for suspected conditions (not mental disorders or infectious disease) (4 sources) CT of chest abnormal; Translations: [Abnormal findings on diagnostic imaging of other specified body structures] 01-15-2024 Chronic Other screening for suspected conditions (not mental disorders or infectious disease) (14 sources) Encounter for screening mammogram for malignant [...] MALIG NEOPLASM OF BREAST] Onset: 10-14-2022 Episodic Skin and subcutaneous tissue infections (4 sources) Cellulitis of left elbow; Translations: [Cellulitis of left upper limb] 11-02-2024 Episodic Substance-related disorders (17 sources) Nicotine dependence; Translations: [Nicotine dependence, cigarettes, uncomplicated] Chronic Substance-related disorders (5 sources) Marijuana user; Translations: [Cannabis use, unspecified, uncomplicated] 03-24-2024 Episodic Unclassified (3 sources) COUGH, UNSPECIFIED; Translations: [COUGH, UNSPECIFIED] Onset: 05-11-2022 Past or Other Problems Problem Classification Problem Date Documented Da te Episodic/Chronic Other non-traumatic joint disorders (1 source) Pain in elbow; Translations: [Pain in left elbow] Onset: 01-23-2025 Resolved: 01-23-2025 Episodic Unclassified (1 source) COUGH, UNSPECIFIED; Translations: [COUGH, UNSPECIFIED] Onset: 05-07-2022 Unclassified (1 source) Contact with and (suspected) exposure to covid-19 Z20.822 Viral infection (1 source) COVID-19 Results Test Name Value Interpretation Reference Range Facility Amphetamine Screen Ql (U)Ord ered By: Marcela Lynne on 12-26-2024 Amphetamines Ql (U) Amphetamines screen Negativ e [facility] Barbiturates [Presence] in U rine by Screen methodOrdered By: Marcela Lynne on 12-26-2024 Barbiturates Screen Ql (U) Barbiturates [Presence] in Urine by Screen method Negative [facility] Benzodiazepines Screen Ql (U )Ordered By: Marcela Lynne on 12-26-2024 Benzodiazepines Ql (U) Benzodiazepines [Presence] in Urine by Screen method Negative [facility] Benzoylecgonine [Presence] i n Urine by Screen methodOrdered By: Marcela Lynne on 12-26-2024 Benzoylecgonine Screen Ql (U) Benzoylecgonine [Presence] in Urine by Screen method Negative [facility] Cannabinoids [Presence] in U rine by Screen methodOrdered By: Marcela Lynne on 12-26-2024 Cannabinoids Screen Ql (U) Cannabinoids [Presence] in Urine by Screen method High Negative [facility] Comment on above: These are unconfirme d results and should not be used for legal purposes. Drug Cut-Off Concentration: AMPH 1000 ng/mL DORINA 200 ng/mL MARIAN 200 ng/mL COCM 300 ng/mL OP 300 ng/mL PCP 25 ng/mL THC 20 ng/mL Drug Screen,Urineon 12-27-19 25 Amphetamine Screen,Urine Negative Normal Negative [facility] Comment on above: Performed By: #### U RDS #### [address] Barbiturate Screen,Urine Negative Normal Negative [facility] Comment on above: Performed By: #### U RDS #### [address] Benzodiazepines Screen,Urine Negative Normal Negative [facility] Comment on above: Performed By: #### U RDS #### [address] Cannabinoid Screen,Urine Positive High Negative [facility] Comment on above: Result Comment: Thes e are unconfirmed results and should not be used for legal purposes. Drug Cut-Off Concentration: AMPH 1000 ng/mL DORINA 200 ng/mL MARIAN 200 ng/mL COCM 300 ng/mL OP 300 ng/mL PCP 25 ng/mL THC 20 ng/mL PERFORMED BY: [place] [address] PATHOLOGIST SENIOR [employer]AN OFFICER NOHEMY WOOD M.D. Performed By: #### U RDS #### [address] Cocaine Screen,Urine Negative Normal Negative [facility] Comment on above: Performed By: #### U RDS #### [address] Opiate Screen,Urine Negative Normal Negative [facility] Comment on above: Performed By: #### U RDS #### [address] Phencyclidine Screen,Urine Negative Normal Negative [facility] Comment on above: Performed By: #### U RDS #### [address] 12-26-2024 L Specimen: [id number] Received: 12/26/24 Status: NURIS Priceabiola Num: [id number] Spec Type: Surgical Subm Dr: Marcela Lynne DO Tissues: A Colon Biopsy (DESCENDING POLYP) B Colon Biopsy (RECTAL POLYP) Procedures: HE/4, Gross/Micro L4/2 Age/ Patient Sex Location Account Attending Physician Tita Mitchell 59/F [id number] Marcela Lynne DO SPEC NUM: [id number] RECD: 12/26/24 STATUS: NURIS PRICEAbiola NUM: [id number] YURY: 12/26/24-[address]: Marcela Lynne DO ENTERED: 12/26/24 AMAN AMANDA: SPEC TYPE: Surgical DEPT: S ENTERED BY: [id number] RECV BY: [id number] ORDERED: HE/4, Gross/Micro L4/2 ORDERED: HE/4, Gross/Micro L4/2 Pathological Diagnosis A. Colon, descending polyp (endoscopic polypectomy/biopsy): Fragments of tubular adenoma B. Rectum, polyps (endoscopic polypectomy/biopsy): Fragments of hyperplastic polyps Clinical Information Screen Gross Description Part A is received in formalin labeled with the patients name, date of , and polyp descending are morgan-helm, focally erythematous, friable polypoid fragments, 1.3 x 1.2 x 0.3 cm in aggregate. The specimen is filtered and entirely submitted in a single cassette. (1, ns, [id number] A) Part B is received in formalin labeled with the patients name, date of , and polyps rectal are 3 morgan-helm, focally erythematous, friable, 0.2, 0.2 and 0.3 cm in greatest dimension polypoid fragments. The specimen is entirely submitted in a single cassette. (1, ns, [id number] A) Specimen: [id number] Received: 12/26/24 Status: NURIS Parnell Num: [id number] Spec Type: Surgical Subm Dr: Marcela Lynne, Tissues: A Colon Biopsy (DESCENDING POLYP) B Colon Biopsy (RECTAL POLYP) Procedures: HE/4, Gross/Micro L4/2 Patient: Tita Mitchell [id number] (Continued) Specimen: [id number] Received: 12/26/24 (Continued) Signed (signature on file) Macho Dye Jr., 12/27/24 1534 Specimen: [id number] Received: 12/26/24 Status: NURIS Parmjit Num: [id number] Spec Type: Surgical Subm Dr: Marcela Lynne DO Tissues: A Colon Biopsy (DESCENDING POLYP) B Colon Biopsy (RECTAL POLYP) Procedures: KATY/Bettina, Gross/Micro L4/2 Patient: Tita Mitchell [id number] (Continued) Specimen: [id number] Received: 12/26/24 (Continued) CPT Codes 61912 x 2 Specimen: [id number] Received: 12/26/24 Status: NURIS Parnell Num: [id number] Spec Type: Surgical Subm Dr: Marcela Lynne DO Tissues: A Colon Biopsy (DESCENDING POLYP) B Colon Biopsy (RECTAL POLYP) Procedures: Kathryn IBRAHIM/[place] L4/2 Patient: Tita Mitchell [id number] (Continued) Signed (signature on file) Macho Dye Jr., MD 12/27/24 1534 Normal [facility] Opiates [Presence] in Urine by Screen methodOrdered By: Marcela Lynne on 12-26-2024 Opiates Screen Ql (U) Opiates [Presence] in Urine by Screen method Negative [facility] Phencyclidine Screen Ql (U)O rdered By: Marcela Lynne on 12-26-2024 Phencyclidine Ql (U) Phencyclidine [Presence] in Urine by Screen method Negative [facility] Cholesterol in LDL Calc [Mas s/Vol]on 10-31-2024 Cholesterol in LDL [Mass/Vol] Cholesterol in LDL [Mass/volume] in Serum or Plasma by calculation [facility] Comment on above: <100 mg/dl [id number] 0-129 mg/dl NEAR OR ABOVE [id number] mg/dl BORDERLINE [id number] mg/dl HIGH>190 mg/dl VERY HIGH Cholesterol in VLDL Calc [Ma ss/Vol]on 10-31-2024 Cholesterol in VLDL [Mass/Vol] Cholesterol in VLDL [Mass/volume] in Serum or Plasma by calculation [facility] Laboratory - Chemistry and C hemistry - challengeon 10-31-2024 Cholesterol [Mass/Vol] 216 mg/dL High <=200 [facility] Cholesterol in HDL [Mass/Vol] 63 mg/dL High 40-60 [facility] Comment on above: > or =60 mg/dl - LOW CARDIOVASCULAR RISK<40 mg/dl - HIGH CARDIOVASCULAR RISK Triglyceride [Mass/Vol] 131 mg/dL <=150 [facility] Serum or plasma total choles terol/high density lipoprotein (HDL) cholesterol mass eduar 10-31-2024 Cholesterol.total/Ch olesterol in HDL [Mass ratio] Serum or plasma total cholesterol/high density lipoprotein (HDL) cholesterol mass rat [facility] Comment on above: 3.3 - 4.4 LOW RISK4. 4 - 7.1 AVERAGE RISK7.1 - 11.0 MODERATE RISK>11.0 HIGH RISK COVID/FLU RT-PCRon 3 SARS-CoV-2 (COVID-19) RNA DAMARI+probe Ql (Unsp spec) Positive [facility] Other COVID/FLU RT-PCR Negative [facility] Other Quick Strepon 06-04-2023 S. pyogenes Org specific cx Ql (Throat) Negative [place] [facility] Other Quick Strep [facility] Other Urology Office/Clinic Noteon 11-17-2022 Urology Office/Clinic [...] Daily, # 30 tab(s), Refills(s) 0, Pharmacy: [facility] #[id number], 172, cm, 11/05/22 10:05:00 EDT, Height/Length Dosing, [...] above: Result Comment: Elec tronically Signed By: PATRICIA RUDD PA-C\.stephanie\Date and Time Signed: 11/17/22 09:41 EDT MG MAMM SCREEN 3D NORMAN CADon 10-09-2022 MG MAMM SCREEN 3D NORMAN CAD Patient: TITA MITCHELL Exam Date: 10/09/2022 : 1965 Gender:F Ordering : DR FOREST TORRES . Admission #: [id number] Family : Order #: [id number] CLICK HERE TO VIEW EXAM RADIOLOGY REPORT [...] breast cancer at age 62. LOCATION: [facility] BREAST COMPOSITION: Heterogeneously dense,which may obscure small [...] Hardin MD on 10/09/2022 at 10:44 Normal [facility] XR DEXA BONE DENSITYon 10-09 XR DEXA BONE DENSITY EXAMINATION: XR DEX A BONE DENSITY, 10/09/2022 9:38 AM EST HISTORY: [...] by: DEMOND BELTRAN Date: 2022-10-09 10:49 Normal [facility] PAP ACOG PANEL 2: 30 to 65on 10-08-2022 . . Normal [facility] Comment on above: Result Comment: Perf ormed at: WB Performed By: #### [id number] #### [facility] [address] [place] [address] Dr. Carol Montaño Age Gdln ACOG Testing 30-65 Normal [facility] Comment on above: Performed By: #### [id number] #### [facility] [address] [place] [address] Dr. Carol Montaño DIAGNOSIS: Comment Normal [facility] Comment on above: Result Comment: NEGA TIVE FOR INTRAEPITHELIAL LESION OR MALIGNANCY. Performed at: WB Performed By: #### [id number] #### [facility] [address] [address] [address] Carol Montaño HPV Aptima Negative Normal Negative [facility] Comment on above: Result Comment: This nucleic acid amplification test detects fourteen high-risk HPV types (16,18,31,33,35,39,45,51,52,56,58,59,66,68) without differentiation. Performed at: =G Performed By: #### [id number] #### [facility] [address] [place] [address] Dr. Carol Montaño HPV Genotype Reflex Comment Normal [facility] Comment on above: Result Comment: Crit eria not met, HPV Genotype not performed. Performed at: WB Performed By: #### [id number] #### [facility] [address] [place] [address] Dr. Carol Montaño Methodology: Comment Normal [facility] Comment on above: Result Comment: This liquid based ThinPrep(R) pap test was screened with the use of an image guided system. Performed at: WB Performed By: #### [id number] #### [facility] [address] [place] [address] Dr. Carol Montaño Note: Comment Normal [facility] Comment on above: Result Comment: The Pap smear is a screening test designed to aid in the detection of premalignant and malignant conditions of the uterine cervix. It is not a diagnostic procedure and should not be used as the sole means of detecting cervical cancer. Both false-positive and false-negative reports do occur. . Performed at: WB Performed By: #### [id number] #### [facility] [address] [place] [address] Dr. Carol Montaño Performed by: Comment Normal [facility] Comment on above: Result Comment: Nel Tucker, Process Laboratory Specialist (ASCP) Performed at: WB Performed By: #### [id number] #### [facility] [address] [place] [address] Dr. Carol Montaño Specimen adequacy: Comment Normal [facility] Comment on above: Result Comment: Sati sfactory for evaluation. Endocervical and/or squamous metaplastic cells (endocervical component) are present. Performed at: WB Performed By: #### [id number] #### [facility] [address] [place] [address] Dr. Carol Montaño CBC AUTO DIFFon 07-07-2022 BASO # 0.1 103/ul Normal 0.0-0.1 [facility] Comment on above: Performed By: #### C BC #### [facility] [address] [place] [address] Dr. Carol Montaño Basophils/100 WBC (Bld) 1.0 % Normal 0.2-2.0 [facility] Comment on above: Performed By: #### C BC #### [facility] [address] [place] [address] Dr. Carol Montaño EO # 0.5 103/ul Normal 0.0-0.7 [facility] Comment on above: Performed By: #### C BC #### [facility] [address] [place] [address] Dr. Carol Montaño Eosinophils/100 WBC (Bld) 5.7 % Normal 0.9-7.0 [facility] Comment on above: Performed By: #### C BC #### [facility] [address] [place] [address] Dr. Carol Montaño Erythrocyte distribution width (RBC) [Ratio] 12.5 % Normal 11.0-15.0 [facility] Comment on above: Performed By: #### C BC #### [facility] [address] [place] [address] Dr. Carol Montaño Hematocrit (Bld) [Volume fraction] 46.7 % Normal 36.0-48.0 [facility] Comment on above: Performed By: #### C BC #### [facility] [address] [place] [address] Dr. Carol Montaño Hemoglobin (Bld) [Mass/Vol] 15.5 g/dL Normal 12.0-16.0 [facility] Comment on above: Performed By: #### C BC #### [facility] [address] [place] [address] Dr. Carol Montaño IG # 0.03 10e3/ul Normal 0.00-0.03 [facility] Comment on above: Performed By: #### C BC #### [facility] [address] [place] [address] Dr. Carol Montaño IG % 0.4 % Normal 0.0-0.5 [facility] Comment on above: Performed By: #### C BC #### [facility] [address] [place] [address] Dr. Carol Montaño LYMPH # 3.2 103/ul Normal 1.2-3.8 [facility] Comment on above: Performed By: #### C BC #### [facility] [address] [place] [address] Dr. Carol Montaño Lymphocytes/100 WBC (Bld) 38.8 % Normal 20.5-60.0 [facility] Comment on above: Performed By: #### C BC #### [facility] [address] [place] [address] Dr. Carol Montaño MANUAL DIFF REQ NO Normal [facility] Comment on above: Performed By: #### C BC #### [facility] [address] [place] [address] Dr. Carol Montaño MCH (RBC) [Entitic mass] 30.5 pg Normal 26.7-34.0 [facility] Comment on above: Performed By: #### C BC #### [facility] [address] [place] [address] Dr. Carol Montaño MCHC (RBC) [Mass/Vol] 33.2 g/dL Normal 29.9-35.2 [facility] Comment on above: Performed By: #### C BC #### [facility] [address] [place] [address] Dr. Carol Montaño MCV (RBC) [Entitic vol] 91.7 fL Normal 81.0-99.0 [facility] Comment on above: Performed By: #### C BC #### [facility] [address] [place] [address] Dr. Carol Montaño MONO # 0.5 103/ul Normal 0.3-0.8 [facility] Comment on above: Performed By: #### C BC #### [facility] [address] [place] [address] Dr. Carol Montaño Monocytes/100 WBC (Bld) 6.6 % Normal 1.7-12.0 [facility] Comment on above: Performed By: #### C BC #### [facility] [address] [place] [address] Dr. Carol Montaño NEUT # 3.9 103/ul Normal 1.4-6.5 [facility] Comment on above: Performed By: #### C BC #### [facility] [address] [place] [address] Dr. Carol Montaño Neutrophils/100 WBC (Bld) 47.5 % Normal 43.0-75.0 [facility] Comment on above: Performed By: #### C BC #### [facility] [address] [place] [address] Dr. Carol Montaño Platelet mean volume (Bld) [Entitic vol] 9.9 fL Normal 9.5-13.5 [facility] Comment on above: Performed By: #### C BC #### [facility] [address] [place] [address] Dr. Carol Montaño PLT 324 103/ul Normal 150-450 [facility] Comment on above: Performed By: #### C BC #### [facility] [address] [place] [address] Dr. Carol Montaño RBC 5.09 106/ul Normal 4.20-5.40 [facility] Comment on above: Performed By: #### C BC #### [facility] [address] [place] [address] Dr. Carol Montaño WBC 8.2 103/ul Normal 4.0-11.0 [facility] Comment on above: Performed By: #### C BC #### [facility] [address] [place] [address] Dr. Carol Montaño LIPID PROFILEon 07-07-2022 CHOL-HDL RATIO NORM SEE BELOW Normal [facility] Comment on above: Result Comment: 3.3 - 4.4 LOW RISK 4.4 - 7.1 AVERAGE RISK 7.1 - 11.0 MODERATE RISK >11.0 HIGH RISK Performed By: #### C MP, LIPID, T4, TSH #### [facility] [address] [place] [address] Dr. Carol Montaño Cholesterol [Mass/Vol] 233 mg/dL Critically high <=200 [facility] Comment on above: Performed By: #### C MP, LIPID, T4, TSH #### [facility] [address] [address] [address] Carol Montaño Cholesterol in HDL [Mass/Vol] 61 mg/dL Critically high 40-60 [facility] Comment on above: Performed By: #### C MP, LIPID, T4, TSH #### [facility] [address] [address] [address] Carol Montaño Cholesterol in LDL [Mass/Vol] 154.8 mg/dL Normal [facility] Comment on above: Performed By: #### C MP, LIPID, T4, TSH #### [facility] [address] [address] [address] Carol Montaño Cholesterol.total/Ch olesterol in HDL [Mass ratio] 3.8 {ratio} Normal [facility] Comment on above: Performed By: #### C MP, LIPID, T4, TSH #### [facility] [address] [address] [address] Carol Montaño HDL NORMAL > or = 60 mg/dl - LOW CARDIOVASCULAR RISK <40 mg/dl - HIGH CARDIOVASCULAR RISK Normal [facility] Comment on above: Performed By: #### C MP, LIPID, T4, TSH #### [facility] [address] [address] [address] Carol Montaño LDL CALC NORMAL SEE BELOW Normal [facility] Comment on above: Result Comment: <100 mg/dl OPTIMAL 100 - 129 mg/dl NEAR OR ABOVE OPTIMAL 130 - 159 mg/dl BORDERLINE HIGH 160 - 189 mg/dl HIGH >190 mg/dl VERY HIGH Performed By: #### C MP, LIPID, T4, TSH #### [facility] [address] [place] [address] Dr. Carol Montaño Triglyceride [Mass/Vol] 86 mg/dL Normal <=150 [facility] Comment on above: Performed By: #### C MP, LIPID, T4, TSH #### [facility] [address] [place] [address] Dr. Carol Montaño VLDL CALC 17.2 mg/dL Normal [facility] Comment on above: Performed By: #### C MP, LIPID, T4, TSH #### [facility] [address] [address] [address] Carol Montaño PROF 14(COMP METB)on 022 Albumin [Mass/Vol] 3.9 g/dL Normal 3.4-5.0 [facility] Comment on above: Performed By: #### C MP, LIPID, T4, TSH #### [facility] [address] [address] [address] Carol Montaño Albumin/Globulin [Mass ratio] 1.2 {ratio} Normal [facility] Comment on above: Performed By: #### C MP, LIPID, T4, TSH #### [facility] [address] [address] [address] Carol Montaño ALP [Catalytic activity/Vol] 81 U/L Normal 46-116 [facility] Comment on above: Performed By: #### C MP, LIPID, T4, TSH #### [facility] [address] [place] [address] Dr. Carol Montaño ALT [Catalytic activity/Vol] 10 U/L Critically low 14-59 [facility] Comment on above: Performed By: #### C MP, LIPID, T4, TSH #### [facility] [address] [address] [address] Carol Montaño Anion gap [Moles/Vol] 8.8 mmol/L Normal [facility] Comment on above: Performed By: #### C MP, LIPID, T4, TSH #### [facility] [address] [address] [address] Carol Montaño AST [Catalytic activity/Vol] 16 U/L Normal 15-37 [facility] Comment on above: Performed By: #### C MP, LIPID, T4, TSH #### [facility] [address] [address] [address] Carol Montaño Bilirubin [Mass/Vol] 0.4 mg/dL Normal 0.2-1.0 [facility] Comment on above: Performed By: #### C MP, LIPID, T4, TSH #### [facility] [address] [address] [address] Carol Montaño Calcium [Mass/Vol] 9.4 mg/dL Normal 8.5-10.1 [facility] Comment on above: Performed By: #### C MP, LIPID, T4, TSH #### [facility] [address] [place] [address] Dr. Carol Montaño Chloride [Moles/Vol] 102 mmol/L Normal 98-107 [facility] Comment on above: Performed By: #### C MP, LIPID, T4, TSH #### [facility] [address] [place] [address] Dr. Carol Montaño CO2 [Moles/Vol] 31.1 mmol/L Normal 21.0-32.0 [facility] Comment on above: Performed By: #### C MP, LIPID, T4, TSH #### [facility] [address] [place] [address] Dr. Carol Montaño Creatinine [Mass/Vol] 0.74 mg/dL Normal 0.55-1.02 [facility] Comment on above: Performed By: #### C MP, LIPID, T4, TSH #### [facility] [address] [place] [address] Dr. Carol Montaño EGFR-AF BOLIVIAN >60 Normal >=60 [facility] Comment on above: Performed By: #### C MP, LIPID, T4, TSH #### [facility] [address] [place] [address] Dr. Carol Montaño EGFR-NON AF BOLIVIAN >60 Normal >=60 [facility] Comment on above: Performed By: #### C MP, LIPID, T4, TSH #### [facility] [address] [place] [address] Dr. Carol Montaño Globulin (S) [Mass/Vol] 3.2 g/dL Normal [facility] Comment on above: Performed By: #### C MP, LIPID, T4, TSH #### [facility] [address] [place] [address] Dr. Carol Montaño Glucose [Mass/Vol] 87 mg/dL Normal 74-106 [facility] Comment on above: Performed By: #### C MP, LIPID, T4, TSH #### [facility] [address] [place] [address] Dr. Carol Montaño Potassium [Moles/Vol] 3.9 mmol/L Normal 3.5-5.1 [facility] Comment on above: Performed By: #### C MP, LIPID, T4, TSH #### [facility] [address] [place] [address] Dr. Carol Montaño Protein [Mass/Vol] 7.1 g/dL Normal 6.4-8.2 [facility] Comment on above: Performed By: #### C MP, LIPID, T4, TSH #### [facility] [address] [address] [address] Carol Montaño Sodium [Moles/Vol] 138 mmol/L Normal 136-145 [facility] Comment on above: Performed By: #### C MP, LIPID, T4, TSH #### [facility] [address] [place] [address] Dr. Carol Montaño Urea nitrogen [Mass/Vol] 10.0 mg/dL Normal 7.0-18.0 [facility] Comment on above: Performed By: #### C MP, LIPID, T4, TSH #### [facility] [address] [place] [address] Dr. Carol Montaño Urea nitrogen/Creatinine [Mass ratio] 13.5 mg/mg Normal [facility] Comment on above: Performed By: #### C MP, LIPID, T4, TSH #### [facility] [address] [place] [address] Dr. Carol Montaño T4on 07-07-2022 T4 [Mass/Vol] 7.10 ug/dL Normal 4.80-13.90 [facility] Comment on above: Performed By: #### C MP, LIPID, T4, TSH #### [facility] [address] [place] [address] Dr. Carol Montaño TSHon 07-07-2022 TSH 1.220 uIU/mL Normal 0.358-3.740 [facility] Comment on above: Performed By: #### C MP, LIPID, T4, TSH #### [facility] [address] [place] [address] Dr. Carol Montaño XR CHEST 2 Von 05-07-2022 XR CHEST 2 V EXAMINATION: XR CHEST 2 V HISTORY: Cough COMPARISON: 01/12/2019 TECHNIQUE: [...] by: TAMMIE HARDIN Date: 2022-05-07 10:26 Normal [facility] Vital Signs Date Time Vital Sign Value Performing Clinician Facility 01-23-2025 01:00-0400 Body height 172.72 cm Radha Parker [place] [facility] 01-23-2025 01:00-0400 Body mass index (BMI) [Ratio] 27.6 kg/m2 Radha Parker [place] [facility] 01-23-2025 01:00-0400 Body surface area Derived from formula 1.99 m2 Radha Parker [place] [facility] 01-23-2025 01:00-0400 Body weight 82.37 kg Radha Parker [place] [facility] 01-23-2025 01:00-0400 Diastolic blood pressure 74 mm[Hg] Radha Parker [facility] 01-23-2025 01:00-0400 Heart rate 72 /min Radha Parker [facility] 01-23-2025 01:00-0400 SaO2% (BldA) [Mass fraction] 97 % Radha Parker [facility] 01-23-2025 01:00-0400 Systolic blood pressure 119 mm[Hg] Radha Parker [place] [facility] 12-26-2024 11:50-0400 Diastolic blood pressure 86 mm[Hg] Carley Lagos MD Work Phone: [facility] 12-26-2024 11:50-0400 Heart rate 70 /min Carley Lagos MD Work Phone: [facility] 12-26-2024 11:50-0400 Respiratory rate 18 /min Carley Lagos MD Work Phone: [facility] 12-26-2024 11:50-0400 SaO2% (BldA) [Mass fraction] 96 % Carley Lagos MD Work Phone: [facility] 12-26-2024 11:50-0400 Systolic blood pressure 140 mm[Hg] Carley Lagos MD Work Phone: [facility] 12-26-2024 09:38-0400 Body height 172.72 cm Carley Lagos MD Work Phone: [facility] 12-26-2024 09:38-0400 Body weight 80.73 kg Carley Lagos MD Work Phone: [facility] 11-02-2024 14:50-0400 Body height 175.[address] [facility] 11-02-2024 14:50-0400 Body mass index (BMI) [Ratio] 26.3 kg/m2 [facility] 11-02-2024 14:50-0400 Body temperature 97.4 [degF] [facility] 11-02-2024 14:50-0400 Body weight 80.[address] [facility] 11-02-2024 14:50-0400 Diastolic blood pressure 84 mm[Hg] [facility] 11-02-2024 14:50-0400 Heart rate 70 /min [facility] 11-02-2024 14:50-0400 SaO2% (BldA) [Mass fraction] 96 % [facility] 11-02-2024 14:50-0400 Systolic blood pressure 134 mm[Hg] [facility] 10-27-2024 12:59-0500 Body height 175.[address] [facility] 10-27-2024 12:59-0500 Body mass index (BMI) [Ratio] 25.9 kg/m2 [facility] 10-27-2024 12:59-0500 Body weight 79.[address] [facility] 10-27-2024 12:59-0500 Diastolic blood pressure 86 mm[Hg] [facility] 10-27-2024 12:59-0500 Heart rate 87 /min [facility] 10-27-2024 12:59-0500 Systolic blood pressure 138 mm[Hg] [facility] 06-13-2024 14:22-0400 Body height 170.2 cm Sarina HILLM Work Phone: [facility] 06-13-2024 14:22-0400 Body mass index (BMI) [Ratio] 28.19 kg/m2 Sarina Phan DPM Work Phone: [facility] 06-13-2024 14:22-0400 Body weight 81.65 kg Sarina Phan DPM Work Phone: [facility] 03-24-2024 09:52-0400 Body height 175.[address] [facility] 03-24-2024 09:52-0400 Body mass index (BMI) [Ratio] 25.8 kg/m2 [facility] 03-24-2024 09:52-0400 Body temperature 97.9 [degF] [facility] 03-24-2024 09:52-0400 Body weight 79.[address] [facility] 03-24-2024 09:52-0400 Diastolic blood pressure 82 mm[Hg] [facility] 03-24-2024 09:52-0400 Heart rate 71 /min [facility] 03-24-2024 09:52-0400 Respiratory rate 20 /min [facility] 03-24-2024 09:52-0400 SaO2% (BldA) [Mass fraction] 96 % [facility] 03-24-2024 09:52-0400 Systolic blood pressure 124 mm[Hg] [facility] 11-13-2023 08:31-0400 Body height 175.[address] [facility] 11-13-2023 08:31-0400 Body mass index (BMI) [Ratio] 25.9 kg/m2 [facility] 11-13-2023 08:31-0400 Body temperature 98.6 [degF] [facility] 11-13-2023 08:31-0400 Body weight 79.[address] [facility] 11-13-2023 08:31-0400 Diastolic blood pressure 66 mm[Hg] [facility] 11-13-2023 08:31-0400 Heart rate 72 /min [facility] 11-13-2023 08:31-0400 SaO2% (BldA) [Mass fraction] 92 % [facility] 11-13-2023 08:31-0400 Systolic blood pressure 103 mm[Hg] [facility] 06-04-2023 09:30-0400 Body height 175.26 cm Beverley Anaya Other [employer] [facility] [employer] Other 06-04-2023 09:30-0400 Body mass index (BMI) [Ratio] 25.69 kg/m2 Beverley Anaya Other [employer] [facility] [employer] Other 06-04-2023 09:30-0400 Body temperature 98.3 [degF] Beverley Anaya Other [employer] [facility] [employer] Other 06-04-2023 09:30-0400 Body weight 78.93 kg Beverley Anaya Other [employer] [facility] [employer] Other 06-04-2023 09:30-0400 Diastolic blood pressure 99 mm[Hg] Beverley Anaya Other [employer] [facility] [employer] Other 06-04-2023 09:30-0400 Respiratory rate 18 /min Beverley Anaya Other [employer] Other 06-04-2023 09:30-0400 SaO2% (BldA) [Mass fraction] 97 % Beverley Anaya Other [employer] Other 06-04-2023 09:30-0400 Systolic blood pressure 127 mm[Hg] Beverley Anaya Other [employer] Other 03-31-2023 11:00-0400 Body height 175.26 cm Carley Lagos Other [employer] Other 03-31-2023 11:00-0400 Body mass index (BMI) [Ratio] 26.73 kg/m2 Carley Lagos Other [employer] Other 03-31-2023 11:00-0400 Body weight 82.1 kg Carley Lagos Other [employer] Other 03-31-2023 11:00-0400 Diastolic blood pressure 74 mm[Hg] Carley Lagos Other [employer] Other 03-31-2023 11:00-0400 Systolic blood pressure 125 mm[Hg] Carley Lagos Other [employer] Other 11-05-2022 09:58-0400 Blood Pressure Location PATRICIA TOBIN [facility] 11-05-2022 09:58-0400 Diastolic blood pressure 82 mm[Hg] PATRICIA TOBIN [facility] 11-05-2022 09:58-0400 Heart rate 67 /min PATRICIA RUDD [facility] 11-05-2022 09:58-0400 Systolic blood pressure 132 mm[Hg] PATRICIA RUDD [facility] Encounters Encounter Date Encounter Type Care Provider Facility Start: 01-23-2025 Office outpatient ne w 30 minutes Radha Parker [place] [facility] Start: 12-26-2024 Non-patient / Non-visit Carley Lagos MD Work Phone: [facility] Work Phone: Start: 12-26-2024 End: 12-26-2024 Admission to same day surgery center Carley Lagos MD Work Phone: [facility] Work Phone: Start: 12-26-2024 End: 12-26-2024 ambulatory Carley Lagos MD Work Phone: [facility] Work Phone: Start: 11-02-2024 End: 11-02-2024 ambulatory [facility] Work Phone: Start: 11-02-2024 End: 11-02-2024 Patient encounter procedure [facility] Work Phone: Start: 10-31-2024 Non-patient / Non-visit [facility] Work Phone: Start: 10-27-2024 End: 10-27-2024 ambulatory [facility] Work Phone: Start: 10-27-2024 End: 10-27-2024 Encounter for general adult medical examination without abnormal findings [facility] Start: 10-27-2024 End: 10-27-2024 Patient encounter procedure [facility] Work Phone: Start: 06-30-2024 Patient encounter status [facility] Start: 06-13-2024 End: 06-13-2024 Office outpatient visit 15 minutes Sarina Phan DPM Work Phone: [facility] Comment on above: Onychodystrophy (Nicolette doris Dx); Left foot pain Start: 06-13-2024 End: 06-13-2024 ambulatory SARINA PHAN Not Available Start: 06-13-2024 End: 06-13-2024 Bamboo flowsheet Sarina Phan DPM Work Phone: [facility] Start: 06-13-2024 End: 06-13-2024 Bamboo flowsheet Sarina Phan DPM Work Phone: [facility] Start: 03-24-2024 End: 03-24-2024 ambulatory [facility] Work Phone: Start: 03-24-2024 End: 03-24-2024 Patient encounter procedure [facility] Work Phone: Start: 11-13-2023 End: 11-13-2023 ambulatory [facility] Work Phone: Start: 11-13-2023 End: 11-13-2023 Patient encounter procedure [facility] Work Phone: Start: 06-04-2023 End: 06-04-2023 ambulatory Beverley Anaya Other [employer] Other Start: 06-04-2023 Office outpatient vi sit 25 minutes Beverley Anaya [facility] Start: 05-29-2023 End: 05-29-2023 ambulatory Carley Lagos Other [employer] Other Start: 05-29-2023 Telephone encounter Carley Lagos [facility] Start: 04-08-2023 End: 04-08-2023 ambulatory Carley Lagos Other [employer] Other Start: 04-08-2023 Telephone encounter Carley Lagos [facility] Start: 03-31-2023 End: 03-31-2023 ambulatory Carley Lagos Other [facility] [employer] Other Start: 03-31-2023 Office outpatient ne w 30 minutes Carley Lagos [facility] Start: 01-27-2023 End: 01-28-2023 ambulatory PATRICIATERESITA RUDD Facility:[facility] Start: 01-27-2023 End: 01-27-2023 Patient encounter procedure PATRICIA RUDD [facility] Start: 11-05-2022 End: 11-06-2022 ambulatory PATRICIATERESITA RUDD Facility:[facility] Start: 11-05-2022 End: 11-05-2022 Patient encounter procedure PATRICIA RUDD [facility] Start: 10-09-2022 End: 10-10-[address] FOREST TORRES . Facility: Start: 10-02-2022 ambulatory PATRICIA RUDD Facility :[facility] Start: 10-01-2022 End: 10-01-[address] FOREST TORRES . Facility: Start: 07-10-2022 Encounter for genera l adult medical examination without abnormal findings DR MACHO ARTEAGA [facility] Start: 07-07-2022 End: 07-08-[address] MACHO ARTEAGA Facility:[facility] Start: 07-07-2022 End: 07-08-2022 Encounter for general adult medical examination without abnormal findings DR MACHO ARTEAGA Facility:[facility] Start: 05-07-2022 End: 05-08-[address] MACHO ARTEAGA Facility: Procedures Date Procedure Procedure Detail Performing Clinician Start: 12-26-2024 Screening colonoscopy Ila Lagos MD Work Phone: Start: 10-09-2022 Mammography Sarina goodwin DPM Work Phone: Cholecystectomy PATRICIA PER RY Plan of Treatment Date Care Activity Detail Author Start: 01-23-2025 XR, elbow, 3 or more view [facility] (Outpatient Testing) Start: 01-23-2025 InPerson; Acute Complex InPers on; Acute Complex [place] [facility] Start: 12-26-2024 [facility] Start: 10-27-2024 Patient referral [facility] Work Phone: Start: 06-13-2024 End: 06-13-2024 Patient encounter procedure 06/13/2024 2:30 PM EDT Office Visit [facility] [address] [place] [id number] Sarina Phan DPM [address] [place] [address] Arrived [facility] Comment on above: Arrived Start: 04-24-2024 Influenza vaccination Influenz a Vaccine (#1) [facility] Start: 10-09-2023 Screening for malign ant neoplasm of breast Mammogram [facility] Start: 11-27-1997 Screening for malign ant neoplasm of cervix [facility] Start: 11-27-1988 Screening for malign ant neoplasm of cervix Pap Smear [facility] Start: 1967 Screening for malign ant neoplasm of colon [facility] CT Chest WO contrast [facility] Patient Education [facility] Work Phone: Patient referral [facility] Work Phone: XR Chest 2 Views [facility] Immunizations Immunization Date Immunization Notes Care Provider Marisela meza 09-19-2021 SARS-CoV-2 (COVID-19 ) mRNA BNT-162b2 vax PATRICIA RUDD [facility] 01-11-2021 SARS-CoV-2 (COVID-19 ) mRNA BNT-162b2 vax PATRICIA RUDD [facility] 12-21-2020 SARS-CoV-2 (COVID-19 ) mRNA BNT-162b2 jonna RUDD [facility] Payers Date Payer Category Payer Self-pay 2024 Unknown [id number] 2022 Private Health Insurance [employer] [id number] 1967 Unknown [id number] 1967 Unknown [id number] [id number] 1967 Unknown [id number]. 593 1967 Unknown [id number]. 593 1967 Unknown [id number] 727 1967 Unknown [id number]. 727 1967 Unknown [id number]. 727 1967 Unknown [id number] 1259 1959 Unknown [id number] Unknown [id number] 531 Social History Date Type Detail Facility Start: 11-05-2022 Tobacco smoking status Heavy tobacco smoker (finding) [facility] Tobacco smoking status Never [facility] Start: 02-02-2023 Sex Assigned At Female F [facility] Start: 11-12-2023 End: 12-26-2024 Tobacco smoking status NHIS Smoker (finding) [facility] Start: 1965 Sex Assigned At Female F [facility] Start: 02-02-2023 End: 06-13-2024 Tobacco smoking status NHIS Smokes tobacco daily [facility] History of tobacco use Cigarette Smoker [facility] Start: 02-02-2023 End: 06-13-2024 Tobacco use and exposure Smokeless tobacco non-user [facility] Start: 02-02-2023 End: 06-13-2024 Alcoholic beverage intake Current drinker of alcohol (finding) [facility] Start: 02-02-2023 End: 06-13-2024 Alcoholic beverage intake [facility] Start: 02-02-2023 Tobacco Comment Started smokin g at 18yo [facility] Start: 01-31-2023 Alcohol Comment 3-4 drinks for >4x a week in the past year, Caffeine intake: >4 cups per day [facility] Start: 1965 Sex assigned at Not on file [facility] Start: 10-27-2024 End: 12-26-2024 Sex Female (finding) [facility] NEGATED: Highlighted row [facility] Medical Equipment Procedure Code Equipment Code Equipment Original Text Equi pment Identifier Dates Procedure Implant ([id number]) Goals Date Patient Goal Desired Activity /State Functional Status Date Assessment Result Facility 11-05-2022 Functional Status N/A [facility] Clinical Notes 03-31-2023 to 12-26-2024 Note Date & Type Note Facility 12-26-2024 History and physi sendy note [facility] 12-26-2024 Procedure note [facility] 10-27-2024 Evaluation note Diagnosis Onset Date Resolution Bipolar 1 disorder acute October 27, 2024 12:54pm Cigarette nicotine dependence with nicotine-induced disorder acute October 27, 2024 12:54pm Colon cancer screening acute Ma rch 2024 12:54pm Wellness examination acute Lico h 2024 12:54pm Cellulitis of left elbow acute November 02, 2024 2:48pm [facility] Work Phone: 1(662) 471-920710-21-2024 History of Present illness Narrative* Sarina Phan, PINKY - 06/13/2024 2:30 PM EDT Images from the original note were not included. Subjective Patient ID: Tita Mitchell is a 58 y.o. female who presents for Toe Pain (Established pt presents today with concerns of a painful LGT nail. Nail is very thick and painful for patient. ). HPI This is an established patient who returns to clinic with concern of her left hallux toenail. I sawher last year and she was concern for fungal infection of the hallux nail. A nail specimen was taken which was negative for fungal disease. Since that time she has had recurrent thickness, tendernessof the toenail. She is here today to [...] in the morning and 1,334 mg at noonand 1,334 mg in the evening. Take with [...] nail specimen result from last year which wasnegative for onychomycosis. Discussed treatment options going forward including observation with regular debridement versus phenol matricectomy. Patient is extremely nervous about moving forward withany type of procedure. In light of this I recommend moving forward with debridement and continued observation. Left hallux toenail was debrided in length and thickness today utilizing a nail Nipper and electric bur jig grinder with incident. Patient noted relief of symptoms with debridement. For now I will see her back on an as- needed basis. If she continues to have issues [...] understanding. Sarina Phan DPM documented in [id number] Evaluation note* Encounter Date Diagnosis Assessment Notes Treatment Notes Treatment Clinical Notes May, Contact with and (suspected) exposure [...] treatment plan. Patient left in stable condition [employer] Other 08-08-2023 Evaluation note* Encounter Date Diagnosis [...] Chronic problem - stable on present med. [facility] Other Evaluation + Plan note No data available for this section [facility] evaluation noteNo [facility] Other Evaluation note* Diagnosis Onset Date Resolution Status Bronchitis acute [facility] Work Phone: Evaluation note* Diagnosis Onset Date Resolution Status Abnormal finding on lung imaging acute Bronchiectasis, uncomplicated acute Cigarette nicotine dependenc e with nicotine-induced disorder acute Marijuana use acute Shortness of breath acute [facility] Work Phone: Evaluation note* Diagnosis Onychodystrophy- Primary Other specified disease of nail Left foot pain Pain in soft tissues of limb documented [facility] this [facility] Diagnosis Onset Date Resolution Status Admit Date Wellness examination acute Lico konstantin 2024 12:54pm [facility] Work Phone: Evaluation note No assessment recorded. [place] [facility] History and physical note Author Marcela Lynne [facility] Note Date/Time December 26, 2024 11:55a m [facility] [address] [place] [address] Gastroenterology H&P Signed Patient: Tita Mitchell MR#: [id number] : 1965 Acct:[id number] Age/Sex: 59 / F Adm Date: 5 Loc: Room: Type: [facility] Attending Dr: Marcela Lynne DO Copies to: Marcela Lynne, DO Carley Lagos MD~ Date of Service: 12/26/2024 HISTORY & PHYSICAL: Patient's history with special attention to the cardiovascular, pulmonary systems and the current problem was reviewed with the patient immediately prior to the procedure. Present medications and doses reviewed in the EMR. Allergies and pertinent laboratory tests were also reviewedat this time in the EMR. The physical examination, as below, was then performed. Indication, assessment and HPI: 59-year-old female who presents for screening colonoscopy. No prior colonoscopy. Family history of GI malignancy? No PHYSICAL EXAMINATION General appearance: cooperative, NAD Skin: No jaundice, no rash or lesions Head: NCAT Eyes: Anicteric Neck: Supple Lungs: Normal respiratory effort, no use of accessory muscles Abdomen: Soft, nondistended Neuro: No focal deficits, Ox3. REVIEW OF SYSTEMS Constitutional: Denies malaise, fevers Cardiovascular: Denies chest pain, palpitations Respiratory: Denies shortness of breath, wheezing Gastrointestinal: As per HPI Genitourinary: Denies dysuria, polyuria Musculoskeletal: Denies joint swelling, joint stiffness Neurological: Denies confusion, numbness, tingling Endocrine: Denies fatigue Written informed consent obtained from the patient. Risks (including but not limited to perforation, infection, bloating, bleeding, need for emergent surgeryand loss of life), benefits and alternatives explained and questions answered. The patient verbalized understanding. Based on history patient is an appropriate candidate for the procedure. Marcela Lynne DO Present medication and doses reviewed in the EMR Documented By: Marcela Lynne DO 12/26/24 1050 Signed By: <Electronically signed by Marcela Lynne DO> 12/26/[address] [facility] Work Phone: History general Narrative - Reported* Type Description Date Medical History Depressed Medical History Bipolar 1 disorder Medical History Back pain Surgical History tonsillectomy Surgical History cholecystectomy Surgical History wisdom teeth [facility] [facility] Other History general Narrative - ReportedNo medical history recorded. Gynecological HistoryNo gynecological history recorded. Obstetrics History GPAL:G 0 P 0 0 0 0 [place] [facility] Discharge instructions No data available for this section [facility] progress note No data available for this section [facility] Summary Purpose Family History Nothing Reported. Relationship Condition Age at Onset Recorded Date/T zarina father Unknown Not Specified Unknown Relationship Condition Age at Onset Recorded Date/T zarina father Unknown mother Unknown Advance Directives Advance Directive Response Recorded Date/ Time Advance Directives No November 12 8:30am Advance Directive Response Recorded Date/ Time Advance Directives No October 24 10:06am Chief Complaint and Reason for Visit Chief Complaint Cough, SOB Reason for Visit Bronchitis Chief Complaint Ref: M Lagos- Pulmon jen Nodules Reason for Visit Abnormal finding on lung imaging Bronchiectasis, uncomplicated Cigarette nicotine dependence with nicotine-induced disorder Marijuana use Shortness of breath Chief Complaint Admit Date wellness October 27, 2024 12:5 4pm Reason for Visit Admit Date Wellness examination October 27, 2024 12: 54pm Chief Complaint Admit Date wellness October 27, 2024 12:5 4pm swollen elbow/red and tender November 02, 2024 2:48pm Reason for Visit Admit Date Bipolar 1 disorder October 27, 2024 12:5 4pm Cigarette nicotine dependence with nicot ine-induced disorder October 27, 2024 12:54pm Colon cancer screening October 27, 2024 1 2:54pm Wellness examination October 27, 2024 12: 54pm Cellulitis of left elbow November 02 2:48pm Chief Complaint Admit Date wellness October 27, 2024 12:5 4pm swollen elbow/red and tender November 02, 2024 2:48pm Screening December 26, 2024 9:12am Screening December 26, 2024 10:50a m Additional Source Comments INFORMATION SOURCE (unrecogn ized section and content) DATE CREATED AUTHOR 10/15/2022 [facility] DATE CREATED AUTHOR AUTHOR'S ORGANIZ ATION 02/01/2023 [facility] DATE CREATED AUTHOR AUTHOR'S ORGANIZ ATION 06/15/2024 [facility] DATE CREATED AUTHOR AUTHOR'S ORGANIZ ATION 01/04/2025 [facility] Patient Care team informatio n (unrecognized section and content) Team Status: Active Member Role Status Dates Carley Lagos MD Primary Care Provider Active Team Status: Inactive Member Role Status Dates Carley Lagos MD Primary Care Provide r, Attending Provider Active Start: November 13, 2023 End: November 13, 2023 Team Status: Inactive Member Role Status Dates Carley Lagos MD Primary Care Provider Active Start: March 24, 2024 End: March 24, 2024 Alejandro oPsey DO Attending Provider Active St art: March 24, 2024 End: March 24, 2024 [facility] Active Start : March 24, 2024 End: March 24, 2024 Motor Builder Winder Relationship Specialty Start Date End Date Macho Arteaga MD [address] [place] [address] PCP - General Family Medicine 02/02/23 Motor Builder Winder Relationship Specialty Start Date End Date Macho Arteaga MD [address] [place] [address] PCP - General Family Medicine 02/02/23 Team Status: Inactive Member Role Status Dates Carley Lagos MD Primary Care Provide r, Attending Provider Active Start: October 27, 2024 End: October 27, 2024 Team Status: Active Member Role Status Dates Carley Lagos MD Primary Care Provide r, Attending Provider Active Start: October 31, 2024 Team Status: Inactive Member Role Status Dates Carley Lagos MD Primary Care Provider Active Start: November 02, 2024 End: November 02, 2024 Patricia Ribeiro APRN [employer] Attending Provider Act mary Start: November 02, 2024 End: November 02, 2024 Team Status: Inactive Member Role Status Dates Carley Lagos MD Primary Care Provider Active Start: December 26, 2024 End: December 26, 2024 Marcela Lynne DO Attending Provider Active St art: December 26, 2024 End: December 26, 2024 Team Status: Active Member Role Status Dates Carley Lagos MD Primary Care Provider Active Start: December 26, 2024 Marcela Lynne DO Attending Provider, Other Provider Active Start: December 26, 2024 REASON FOR VISIT (unrecogniz ed section [...] BE BASED ON THE PRIMARY CLINICAL RECORDS. [facility]. provides no warranty or guarantee of the accuracy or completeness of information in this document.
== END 2025-01-25 20:56 | disposition home or self-care (01) ==
LOC: LAB 20:55
PROVIDERS: PCP Family Medicine; Visit Provider Physician Assistant
DX: Z01.419 Encounter for gynecological examination (general) (routine) without abnormal findings (principal)
CPT/HCPCS: 87624; 88175

== ENCOUNTER 2025-02-08 08:47 | Outpatient (OUT) | payer OTHER, SELFPAY ==
--- OUTSIDE RECORDS SUMMARY | 2025-01-25 13:00 | XMS_ITS | Encounter Summary ---
Author Organization [facility] Address [address] [place] [address] Care Team Providers Care Vaccinator Name Role Phone Macho Finney MD Primary Care Provider [phone] Reason for Visit * Reason Comments Well Women Visit Encounter Details Date Type Department Care Team (Late st Contact Info) Description 01/25/2025 1:00 PM EDT Office Visit [facility] [address] [place] [id number] Alida Meier PA [address] [place], [place] [address] Well woman exam with routine gynecological exam; Breast cancer screening by mammogram; Postmenopausal state Social History Tobacco Use Types Packs/Day Years Used Date Smoking Tobacco: Every Day Cigarettes 0.5 15 Smokeless Tobacco: Never Comments:Started smoking at 18yo Alcohol Use Standard Drinks/Week Comments Yes 6 (1 standard drink = 0.6 oz pure alcohol) 3-4 drinks for >4x a week in the past year, Caffeine intake: >4 cups per day Comments Unknown Sex and Gender Information Value Date Recorded Sex Assigned at Not on file Legal Sex Female 6:49 PM EDT Gender Identity Not on file Sexual Orientation Not on file documented as of this encounter Last Filed Vital Signs Vital Sign Reading Time Taken Comments Blood Pressure 106/70 01/25/2025 1:15 PM EDT Pulse - - Temperature - - Respiratory Rate - - Oxygen Saturation - - Inhaled Oxygen Concentration - - Weight 81.1 kg (178 lb 12.8 oz) 01/25/2025 1:15 PM EDT Height - - Body Mass Index 28 06/13/2024 2:22 PM EDT documented in this encounter Progress Notes * Eve Cortés NP - 01/25/2025 1:00 PM EDT Reason for Appointment: Patient ID: Tita Mitchell is a 59 y.o. female who presents for Well Women Visit Patient presents today for Annual Exam. MEDICATIONS Current Outpatient Medications Medication Instructions ARIPiprazole (ABILIFY) 10 mg, Daily vilazodone (VIIBRYD) 10 mg, Daily with breakfast ALLERGIES No Known Allergies PROBLEMS Active Ambulatory Problems Diagnosis Date Noted No Active Ambulatory Problems Resolved Ambulatory Problems Diagnosis Date Noted No Resolved Ambulatory Problems Past Medical History: Diagnosis Date Bipolar 1 disorder (CMS/HCC) Chronic hoarseness Chronic laryngitis Depression (CMS/HCC) Depression (CMS/HCC) ISA on CPAP HISTORY PAST MEDICAL HISTORY SOCIAL HISTORY Past Medical History: Diagnosis Date Bipolar 1 disorder (CMS/HCC) Chronic hoarseness Chronic laryngitis Depression (CMS/HCC) Depression (CMS/HCC) ISA on CPAP Social History Tobacco Use Smoking status: Every Day Current packs/day: 0.50 Average packs/day: 0.5 packs/day for 15.0 years (7.5 ttl pk-yrs) Types: Cigarettes Smokeless tobacco: Never Tobacco comments: Started smoking at 18yo Substance Use Topics Alcohol use: Yes Alcohol/week: 6.0 standard drinks of alcohol Types: 6 Cans of beer per week Comment: 3-4 drinks for >4x a week in the past year, Caffeine intake: >4 cups per day Drug use: Never FAMILY HISTORY Family History Problem Relation Name Age of Onset Cancer Mother Mother Breast cancer Mother Mother Hypertension Mother Mother Other (breast cancer) Mother Mother Hypertension Father Mario Diabetes Daughter [facility] SURGICAL HISTORY Past Surgical History: Procedure Laterality Date CHOLECYSTECTOMY TONSILLECTOMY REVIEW OF SYSTEMS Review of Systems: Review of Systems Constitutional: Negative. HENT: Negative. Eyes: Negative. Respiratory: Negative. Cardiovascular: Negative. Gastrointestinal: Negative. Genitourinary: Negative. Musculoskeletal: Negative. Skin: Negative. Neurological: Negative. Psychiatric/Behavioral: The patient is nervous/anxious. Anxiety intermittently no panic or associated depression at this time. All other systems reviewed and are negative. Hematological: Negative. Endocrine: Negative. Allergic/Immunologic: Negative. OBJECTIVE Objective: Physical Exam Constitutional: Appearance: Normal appearance. She is well-developed. Genitourinary: Vulva normal. Breasts: Breasts are soft. Right: Normal. Left: Normal. Cardiovascular: Rate and Rhythm: Normal rate and regular rhythm. Pulmonary: Effort: Pulmonary effort is normal. Breath sounds: Normal breath sounds. Abdominal: General: Bowel sounds are normal. There is no distension. Palpations: Abdomen is soft. Tenderness: There is no abdominal tenderness. There is no guarding or rebound. Musculoskeletal: General: No swelling. Normal range of motion. Right lower leg: No edema. Left lower leg: No edema. Neurological: Mental Status: She is alert and oriented to person, place, and time. Skin: General: Skin is warm and dry. Psychiatric: Mood and Affect: Mood normal. Behavior: Behavior normal. Vitals and nursing note reviewed. Exam conducted with a curriculum director present. Vitals: Estimated body mass index is 28 kg/m?? as calculated from the following: Height as of 06/13/24: 5' 7 . Weight as of this encounter: 178 lb 12.8 oz. BP: 106/70 No LMP recorded. ASSESSMENT & PLAN ICD-10-CM 1. Well woman exam with routine gynecological exam Z01.419 THIN PREP TIS PAP AND HR HPV DNA 2. Breast cancer screening by mammogram Z12.31 Bilateral screening mammogram Bilateral screening mammogram 3. Postmenopausal state Z78.0 DEXA bone density Annual Exam: Patient presents today for an annual exam. Patient states she is doing well and has no complaints. Pap was obtained without difficulty. Orders Placed This Encounter Procedures Bilateral screening mammogram DEXA bone density Follow Up: Patient is to return in one year for annual unless needed otherwise. Documented by Eve Cortés NP on behalf of: ERIKA Greenberg documented in this encounter Plan of Treatment Scheduled Orders Name Type Priority Associated Diagnoses Orde r Schedule Bilateral screening mammogram Imaging Routine Breast cancer screening by mammogram Expected: 01/25/2025, Expires: 03/27/2026 DEXA bone density Imaging Routine Postmenopausal state Expected: 01/25/2025 (Approximate), Expires: 01/25/2026 THIN PREP TIS PAP AND HR HPV DNA Pathology and Cytology Routine Well woman exam with routine gynecological exam Ordered: 01/25/2025 documented as of this encounter Visit Diagnoses Diagnosis Well woman exam with routine gynecological exam Routine gynecological examination Breast cancer screening by mammogram Postmenopausal state Asymptomatic postmenopausal status (age-related) (natural) documented in this encounter Care Teams Vaccinator Relationship Specialty Start Date End Date Macho Finney MD [address] [place] [address] PCP - General Family Medicine 02/02/23 documented as of this encounter
--- NOTE | 2025-02-08 08:50 | MM_ITS ---
Patient Name: JUNIOR ASENCIO MR#: [id number] : 1965 Exam Date: 02/08/2025 Ordering Doctor: ERIKA GAINES . RADIOLOGY REPORT PROCEDURE: MM TOMOSYNTHESIS SCREENING BI COMPARISON: MM TOMOSYNTHESIS SCREENING BI, 07/15/2024. MG MAMM SCREEN 3D NORMAN CAD, 10/09/2022. MG MAMM SCREEN 3D NORMAN CAD, 04/12/2021. MG MAMM SCREEN NORMAN W CAD, 10/10/2016. INDICATIONS: Breast cancer screening Calculator Name NCI Breast Cancer Risk Assessment Tool 5 Year Breast Cancer Risk 2.50% Lifetime Breast Cancer Risk 14.50% Personal Breast Cancer No Personal Ovarian Cancer No Treatments None Family Cancers Mother with breast cancer at age 60. LOCATION: [facility] BREAST COMPOSITION: There are scattered areas of fibroglandular density. FINDINGS: DIAGNOSTIC CATEGORY 1--NEGATIVE. RIGHT BREAST: No significant suspicious finding. LEFT BREAST: No significant suspicious finding. RECOMMENDATIONS: ROUTINE MAMMOGRAM AND CLINICAL EVALUATION IN 12 MONTHS. PLEASE NOTE: A NORMAL MAMMOGRAM DOES NOT EXCLUDE THE POSSIBILITY OF BREAST CANCER. A CLINICALLY SUSPICIOUS PALPABLE LUMP SHOULD BE BIOPSIED. Dictated by: Miguel Carr DO on 02/08/2025 at 16:34 Approved by: Miguel Carr DO on 02/08/2025 at 16:34
--- OUTSIDE RECORDS SUMMARY | 2025-02-08 08:50 | XMS_ITS | Encounter Summary ---
Author Organization [facility] Address [address] [place] [address] Care Team Providers Care Acidizer Helper Name Role Phone Macho Finney MD Primary Care Provider [phone] Encounter Details Date Type Department Care Team (Late st Contact Info) Description 01/25/2025 Bamboo flowsheet [facility] [address] [place] [address] Alida Meier PA [address] [place] [address] Social History Tobacco Use Types Packs/Day Years [...] on file documented as of this encounter Plan of Treatment Not on file documented as of this encounter Visit Diagnoses Not on filedocumented in this encounter Care Teams Acidizer Helper Relationship Specialty Start Date End Date Macho Finney MD [address] [place] [address] PCP - General Family Medicine 02/02/23 documented as of this encounter
--- OUTSIDE RECORDS SUMMARY | 2025-02-08 08:50 | XMS_ITS | Data Portability ---
Author Organization [place] - [facility] Address [address] [place] [address] Care Team Providers Care Carpenter Refrigerator Name Role Phone CARLEY JACKSON Primary Care Provider Assessment No assessment recorded. Plan of Treatment Reminders Order Date Submit Date Provider Last Modified By Organization Details Last Modified Time Details Appointments None record ed. Lab None record ed. Referral None record ed. Procedures None record ed. Surgeries None record ed. Imaging XR, elbow, 3 or more view 025 01/24/20 [facility] (Out[facility] Testing), [address] [place] [address], [address], 13:45:14 Medication Orders None record ed. Patient TargetsNo targets recorded. Patient Instructions Encounter Date Encounter Id Patient Instructions Last Modified By Organization Details Last Modified Time 01/23/2025 [id number] Discussed inflammation vs infection; antibiotic not indicated at this time. Encouraged patient to not rest elbows on desk for prolonged periods of time and do not pick at scab. Advised on epsom salt soaks daily and using a quality moisturizer. Will obtain xray due to ongoing pain and swelling. Will call patient with xray results; pt requests copy of results sent to Dr. Jackson. Not available 01/23/2025 11:35:03 Reason for Referral None Reported. Results Created Date Observation Date Name Description Value Unit Range Abnormal Flag Note LastModifiedBy Organization Detail LastModifiedTime 02/02/2001/25/2025 XR, elbow , 3 or more view No observ ation record ed. [email or web address] [address], [address], 02/02/2025 11:05:18 Result Notes None recorded. Problems Name Problem SNOMED Code Status Onset Date Resolution Date Notes Provider Name and Address Organization Details Recorded Time Bipolar disorder 92012563 Active [address], [place], [address] , [place] [facility] 5 10:48:10 Problem Notes None recorded. Medical Equipment None Reported. Allergies No known drug allergies Medications Name Sig Start Date Stop Date Status Note LastModified by Organization Details LastModified Time cefdinir 300 mg capsule TAKE 1 CAPSULE BY MOUTH TWICE DAILY FOR 7 DAYS 01/23 completed Not Available Not Available Not Available Abilify 10 mg tablet Take 1 tablet every day by oral route. active Not Available Not Available No t Available vilazodone 20 mg tablet TAKE 1 TABLET BY MOUTH DAILY WITH FOOD active Not Available Not Available No t Available Vitals Date Recorded Body height Body mass index (BMI) Body weight Oxygen saturation Oxygen saturation in Arterial blood by Pulse oximetry Heart rate Systolic blood pressure Diastolic blood pressure Provider Name and Address Organization Details Last Updated DateTime 5 172.72 cm 27.6 kg/m2 18283.3 7 g 97 % 97 % 72 /min 119 mm[Hg] 74 mm[Hg] Asha Sheets [place] [facility] 10:40:35 Social History None recorded. Functional Status None recorded. Mental Status None recorded. Family History Nothing Reported. Medical History No medical history recorded. Gynecological HistoryNo gynecological history recorded. Obstetrics History GPAL:G 0 P 0 0 0 0 Immunizations Vaccine Type Date Status Note Provider Nam e and Address Organization Details Recorded Time COVID-19, mRNA, LNP-S, PF, 30 mcg/0.3 mL dose 09/19/2021 completed Asha Sheets null, [place] [facility] 01/23/2025 10:33:14 COVID-19, mRNA, LNP-S, PF, 30 mcg/0.3 mL dose 12/21/2020 completed Asha Sheets null, [place] [facility] 01/23/2025 10:33:14 COVID-19, mRNA, LNP-S, PF, 30 mcg/0.3 mL dose 01/11/2021 completed Asha Sheets null, [place] [facility] 01/23/2025 10:33:14 Past Encounters Encounter ID Performer Location Encounter Start Date Encounter Closed Date Diagnosis/Indication Diagnosis SNOMED-CT Code Diagnosis ICD10 Code Diagnosis Note [id number] Mario Wilcox MD [facility] [place] [address] [place] [address] 01/23/2025 10:31:55 01/23/2025 11:37:02 Pain of elbow region 88893331 M25.522 M25.422 Health Concerns Section Related Observation LastModified by Organization Detai ls LastModified Time None Recorded Concern Status LastModified by Organization Details LastModified Time None Recorded Advance Directives Directive None Recorded Payers Insurance Date Sequence Insurance Name Policy Number Policy Rivera Covered Member ID Rivera Member ID Guarantor Name 01/19/2025 1 [facility] Tita Paula UNKNOWN Tita Paula 01/22/2025 1 [facility] [id number] Tita Paula [id number] Tita Paula Notes Date Note Type Note Provider Name and Address Organization Details Recorded Time 01/23/2025 text/html SE is a 59 yo female presenting for left elbow swelling and redness increasing over the last week. Pain is intermittent. Denies drainage. Follows with Dr. Carley Jackson for primary care; last seen three months ago for elbow and put on cefdinir. Pt states that her elbow started with swelling and redness approx. one year ago; was also put on antibiotic at that time. Pt admits to resting elbows on table all day while at work. Has developed a scab on left elbow that she states she picks at often. Radha Parker [address], [place], [address], [place] - [facility] 01/23/2025 11:36:55 OBGyn Episode No OBEpisode recorded.
--- OUTSIDE RECORDS SUMMARY | 2025-02-08 08:50 | XMS_ITS | Encounter Summary ---
Author Organization [facility] Address [address] [place] [address] Care Team Providers Care Marsh Buggy Operator Name Role Phone Reg, Macho Rangel MD Primary Care Provider [phone] Encounter Details Date Type Department Care Team (Late st Contact Info) Description 01/25/2025 Clinisync Result Encounter [facility] External Department Unsolicited Alida Meier PA [address] [place] [address] Dr [place] [id number] Social History Tobacco Use Types Packs/Day Years [...] on file documented as of this encounter Procedures Procedure Name Priority Date/Time Associated Diagnosis Comments IGP,APTIMA HPV,AGE GDLN Routine 01/25/2025 1:01 PM EDT documented in this encounter Results * IGP,APTIMA HPV,AGE GDLN (01/25/2025 1:01 PM EDT) AGE GDLN ACOG TESTING Note . TB Comment: TESTS RESULT FLAG UNITS REF RANGE LAB Clinician Provided Cytology Information Source.............Cervix;Endocervix No. of containers..01 ThinPrep Vial Age Graciela COONEYOG Marisa... 32 FLAG LEGEND: L-Low Normal,H-High Normal,LL-Alert Low,HH-Alert High <-Panic Low,>-Panic High,A-Abnormal,AA-Critical Abnormal Performed at: 01 =[facility] [address] [place] [address] Betsey Barajas MD, IGP, APTIMA HPV, RFX 16/18,45 Note . [facility] Comment: TESTS RESULT FLAG UNITS REF RANGE LAB DIAGNOSIS: 02 NEGATIVE FOR INTRAEPITHELIAL LESION OR MALIGNANCY. Specimen adequacy: 02 Satisfactory for evaluation. Endocervical and/or squamous metaplastic cells (endocervical component) are present. Performed by: Nataly Arrieta Housekeeper . 02 Note: Note 02 The Pap smear is a screening test designed to aid in the detection of premalignant and malignant conditions of the uterine cervix. It is not a diagnostic procedure and should not be used as the sole means of detecting cervical cancer. Both false-positive and false-negative reports do occur. Test Methodology: Note 02 This liquid based ThinPrep(R) pap test was screened with the use of an image guided system. HPV Genotype Reflex Note 02 Criteria not met, HPV Genotype not performed. FLAG LEGEND: L-Low Normal,H-High Normal,LL-Alert Low,HH-Alert High <-Panic Low,>-Panic High,A-Abnormal,AA-Critical Abnormal Performed at: [address] [address] Betsey Barajas MD, HPV APTIMA Negative Negative TB Comment: This nucleic acid amplification test detects fourteen high- risk HPV types (16,18,31,33,35,39,45,51,52,56,58,59,66,68) without differentiation. Performed at: =[address] [id number] Transitional Care Manager: Betsey Barajas MD, Phone: [phone] Performed at: [address] [id number] Transitional Care Manager: Betsey Barajas MD, Phone: [phone] 01/25/2025 1:01 PM EDT 01/26/2025 6:32 AM EDT Narrative [facility] - 01/29/2025 1:08 PM EDT BRUSH-ALONE CERVIX ENDOCERVIX us Alida JAMES LAB BLOOD ORDERABLES Final Resul t [facility] documented in this encounter Visit Diagnoses Not on filedocumented in this encounter Care Teams Marsh Buggy Operator Relationship Specialty Start Date End Date Macho iFnney MD [address] [place] [address] PCP - General Family Medicine 02/02/23 documented as of this encounter
--- OUTSIDE RECORDS SUMMARY | 2025-02-08 08:50 | XMS_ITS | Clinical Summary ---
Author Organization [facility] Address [address] [facility]. [place] [id number] Phone Care Team Providers Care Farm Instructor Name Role Phone Unavailable Primary Care Provider Unavailabl e Social History Tobacco Use Types Packs/Day Years Used Date Smoking Tobacco: Never Assessed Comments Unknown Sex and Gender Information Value Date Recorded Sex Assigned at Not on file Legal Sex Female 10:25 AM EST Gender Identity Not on file Sexual Orientation Not on file Plan of Treatment Not on file
--- OUTSIDE RECORDS SUMMARY | 2025-02-08 08:50 | XMS_ITS | Clinical Summary ---
[facility] Address [id number] [address] [place] [address] Care Team Providers Care Tannery Worker Name Role Phone Unavailable Primary Care Provider Unavailabl e Social History Tobacco Use Types Packs/Day Years Used Date Smoking Tobacco: Never Assessed Childcare Answer Date Recorded Childcare Unknown 02/03/2019 Employment Answer Date Recorded Employment Unknown 02/03/2019 Comments Unknown Sex and Gender Information Value Date Recorded Sex Assigned at Not on file Legal Sex Female 11:06 AM EDT Gender Identity Not on file Sexual Orientation Not on file Plan of Treatment Health Maintenance Due Date Last Done Comments Depression Screening 1979 Tobacco Screening 1979 Adult BMI Screening 11/27/1985 DTaP,Tdap and Td Vaccines (1 - Tdap) 11/27/1986 Pap Smear 11/27/1988 Zoster (Shingles) Vaccine (1 of 2) 11/27/2017 Influenza Vaccine 04/24/2025 Medical Devices Not on file
--- OUTSIDE RECORDS SUMMARY | 2025-02-08 08:50 | XMS_ITS | Encounter Summary ---
Author Organization [facility] Address [address] [place] [address] Care Team Providers Care Alum Operator Name Role Phone Macho Finney MD Primary Care Provider [phone] Encounter Details Date Type Department Care Team (Late st Contact Info) Description 01/31/2023 Abstract [facility] [address] [place] [id number] Leonel Phan, DPM [address] [place], [place] [id number] Social History Tobacco Use Types Packs/Day Years Used Date Smoking Tobacco: Every Day Cigarettes Tobacco Cessation:Ready to Q uit: Not Asked; Counseling Given: Not Answered Alcohol Use Standard Drinks/Week Comments Yes 0 (1 standard drink = 0.6 oz pure [...] on filedocumented in this encounter Care Teams Alum Operator Relationship Specialty Start Date End Date Macho Finney MD [address] [place] [address] PCP - General Family Medicine 02/02/23 documented as of this encounter
--- OUTSIDE RECORDS SUMMARY | 2025-02-08 08:50 | XMS_ITS | Encounter Summary ---
Author Organization [facility] Address [address] [place] [address] Care Team Providers Care Cat Scanner Operator Name Role Phone Reg, Macho Rangel MD Primary Care Provider Encounter Details Date Type Department Care Team (Late st Contact Info) Description 02/07/2025 Orders Only [facility] [address] [place] [address] Rupali Duron LPN [address] [place] [id number] Social History Tobacco Use Types Packs/Day Years [...] Procedure Name Priority Date/Time Associated Diagnosis Comments PAP SMEAR Routine 01/25/2025 12:00 AM EDT documented in this encounter Results * Pap Smear (01/25/2025 12:00 AM EDT) Swab Cervical swab / Unknown [facility] CYTOLOGY ORDERABLES Final Re sult EXTERNAL LAB documented in this encounter Visit Diagnoses Not on filedocumented in this encounter Care Teams Cat Scanner Operator Relationship Specialty Start Date End Date Macho Finney MD [address] [place] [id number] PCP - General Family Medicine 02/02/23 documented as of this encounter
--- OUTSIDE RECORDS SUMMARY | 2025-02-08 08:50 | XMS_ITS | Encounter Summary ---
Author Organization [facility] Address [address] [facility] [place] [address] Care Team Providers Care Street Engineer Name Role Phone Macho Finney MD Primary Care Provider [phone] Encounter Details Date Type Department Care Team (Late st Contact Info) Description 01/25/2025 Abstract [facility] [address] [facility] [place] [phone] Dank Torres, DO [address] [facility] [place] [address] Social History Tobacco Use Types Packs/Day Years [...] on filedocumented in this encounter Care Teams Street Engineer Relationship Specialty Start Date End Date Macho Finney MD [address] [place] [address] PCP - General Family Medicine 02/02/23 documented as of this encounter
--- OUTSIDE RECORDS SUMMARY | 2025-02-08 08:50 | XMS_ITS | Clinical Summary ---
Author Organization [facility] Address [address] [place] [address] Care Team Providers Care Ultrasound Tech Name Role Phone Reg, Macho Rangel MD Primary Care Provider Allergies No known active allergies Medications ARIPiprazole (Abilify) 10 MG tablet Take 10 mg by mouth in the morning. Active vilazodone (Viibryd) 10 mg tablet Take 10 mg by mouth in the morning. Take with meals. Active Multiple Vitamin (multivitamin) capsule Take 1 capsule by mouth in the morning. 01/26/20 25 Discontinu ed(Other) calcium acetate (Phoslo) 667 MG capsule Take 1,334 mg by mouth in the morning and 1,334 mg at noon and 1,334 mg in the evening. Take with meals. 01/26/20 25 Discontinu ed(Other) tolterodine LA (Detrol LA) 4 MG 24 hr capsule Take 4 mg by mouth in the morning. Do not crush, chew, or split. . 01/26/20 25 Discontinu ed(Other) Encounters Date Type Department Care Team Description 02/07/2025 Orders Only [facility] [address] [place] [address] Rupali Duron LPN 01/25/2025 1:00 PM EDT Office Visit [facility] [address] [place] [address] Alida Meier PA Well woman exam with routine gynecological exam; Breast cancer screening by mammogram; Postmenopausal state 01/25/2025 Clinisync Result Encounter [facility] External Department Unsolicited Alida Meier PA 01/25/2025 Abstract [facility] [address] [phone] Forest Torres DO 01/25/2025 Bamboo flowsheet [facility] OB [address] [phone] Alida Meier PA 01/19/2025 Travel from Last 3 Months Family History Medical History Relation Name Comments Diabetes Daughter Mary Alice Hypertension Father Mario Breast cancer Mother Mother Cancer Mother Mother Hypertension Mother Mother breast cancer Mother Mother Relation Name Status Comments Daughter Mary Alice Father Mario Mother Mother Social History Tobacco Use Types Packs/Day Years [...] on file Sexual Orientation Not on file Last Filed Vital Signs Vital Sign Reading Time Taken Comments Blood Pressure 106/70 01/25/2025 1:15 PM EDT Pulse - - Temperature - - Respiratory Rate - - Oxygen Saturation - - Inhaled Oxygen Concentration - - Weight 81.1 kg (178 lb 12.8 oz) 01/25/2025 1:15 PM EDT Height 170.2 cm (5' 7 ) 06/13/2024 2:22 PM EDT Body Mass Index 28 06/13/2024 2:22 PM EDT Plan of Treatment Health Maintenance Due Date Last Done Comments CT Colonography 1965 Colonoscopy 1965 Colorectal Cancer Screening 1965 FIT-DNA 1967 FIT 1967 FOBT 1965 Sigmoidoscopy 1965 HPV/Cotest 11/27/1997 Mammogram 10/09/2023 10/09/2022, 10/01/2022 Influenza Vaccine (Season Ended) 2025 Cervical Cancer Screening 01/26/2028 Pap Smear 01/26/2028 01/25/2025 Procedures Procedure Name Priority Date/Time Associated Diagnosis Comments IGP,APTIMA HPV,AGE GDLN Routine 01/25/2025 1:01 PM EDT PAP SMEAR Routine 01/25/2025 12:00 AM EDT BI MAMMOGRAM SCREENING TOMOSYNTHESIS BILATERAL Routine 10/09/2022 from Last 3 Months or Most Recently Relevant to Health Maintenance Results * IGP,APTIMA HPV,AGE GDLN (01/25/2025 1:01 PM EDT) AGE GDLN ACOG TESTING Note . [facility] Comment: TESTS RESULT FLAG UNITS REF RANGE LAB Clinician Provided Cytology Information Source.............Cervix;Endocervix No. of containers..01 ThinPrep Vial Age Algo ACOG Marisa... 30-65 01 FLAG LEGEND: L-Low Normal,H-High Normal,LL-Alert Low,HH-Alert High <-Panic Low,>-Panic High,A-Abnormal,AA-Critical Abnormal Performed at: 01 [facility] [place] [address] Betsey Barajas MD, IGP, APTIMA HPV, RFX 16/18,45 Note . [facility] Comment: TESTS RESULT FLAG UNITS REF RANGE LAB DIAGNOSIS: 02 NEGATIVE FOR INTRAEPITHELIAL LESION OR MALIGNANCY. Specimen adequacy: 02 Satisfactory for evaluation. Endocervical and/or squamous metaplastic cells (endocervical component) are present. Performed by: 02 Maryann Arrieta Chemistry Professor . 02 Note: Note 02 The Pap [...] <-Panic Low,>-Panic High,A-Abnormal,AA-Critical Abnormal Performed at: 02 [facility] [address] [place] [address] Betsey Barajas MD, HPV APTIMA Negative Negative [facility] Comment: This nucleic acid amplification test detects fourteen high- risk HPV types (16,18,31,33,35,39,45,51,52,56,58,59,66,68) without differentiation. Performed at: =G - [facility] [address], [place] [id number] Analytical Sciences Director: Betsey Barajas MD, Phone: [phone] Performed at: [address] [id number] Analytical Sciences Director: Betsey Barajas MD, Phone: [phone] 01/25/2025 1:01 PM EDT 01/26/2025 6:32 AM EDT Narrative [facility] - 01/29/2025 1:08 PM EDT BRUSH-ALONE CERVIX ENDOCERVIX us [facility] BLOOD ORDERABLES Final Resul t [facility] TB * Pap Smear (01/25/2025 12:00 AM EDT) Swab Cervical swab / Unknown [facility] CYTOLOGY ORDERABLES Final Re sult Performing Organization Address City/[facility]/ZIP Co de Phone Number EXTERNAL LAB * Bilateral screening mammogram with tomosynthesis (10/09/2022) Anatomical Region Laterality Modality Breast Bilateral Mammography Narrative 10/09/2022 12:00 AM EST PERFORMED AT [facility] LOCATION:[address] Patient: PAULA Tomas Exam Date: 10/09/2022 : 1965 Gender:F Ordering : DR FOREST TORRES . Admission #: [id number] Family : Order #: [id number] CLICK HERE TO VIEW EXAM RADIOLOGY REPORT PROCEDURE: MAMMOGRAM SCREENING 3D BILATERAL CAD COMPARISON: MG MAMM SCREEN 3D NORMAN CAD 04/12/2021. MG MAMM SCREEN NORMAN W CAD 10/10/2016. INDICATIONS: Screening mammography Calculator Name NCI Breast Cancer Risk Assessment Tool 5 Year Breast Cancer Risk 2.20% Lifetime Breast Cancer Risk 15.40% Personal Breast Cancer No Personal Ovarian Cancer No Treatments None Family Cancers Mother with breast cancer at age 60. LOCATION: [facility] BREAST COMPOSITION: Heterogeneously dense which may obscure small masses. FINDINGS: DIAGNOSTIC CATEGORY [...] PALPABLE LUMP SHOULD BE BIOPSIED. Dictated by: Mario Ulloa MD on 10/09/2022 at 10:39 Approved by: Mario Ulloa MD on 10/09/2022 at 10:44 Procedure Note CONVERSION, GENERIC - 02/27/2023 PERFORMED AT [facility] LOCATION:[address] Patient: PAULA Rdz. Exam Date: 10/09/2022 : 1965 Gender:F Ordering : DR FOREST TORRES . Admission #: [id number] Family : Order #: [id number] CLICK HERE TO VIEW EXAM RADIOLOGY REPORT PROCEDURE: MAMMOGRAM SCREENING 3D BILATERAL CAD COMPARISON: MG MAMM SCREEN 3D NORMAN CAD 04/12/2021. MG MAMM SCREEN NORMAN W CAD 10/10/2016. INDICATIONS: Screening mammography Calculator Name NCI Breast Cancer Risk Assessment Tool 5 Year Breast Cancer Risk 2.20% Lifetime Breast Cancer Risk 15.40% Personal Breast Cancer No Personal Ovarian Cancer No Treatments None Family Cancers Mother with breast cancer at age 60. LOCATION: [facility] BREAST COMPOSITION: Heterogeneously dense which may obscure small masses. FINDINGS: DIAGNOSTIC CATEGORY 2--BENIGN FINDING. NO CHANGE FROM COMPARISON. Scattered benign-appearing nodules are present. Scatteredbenign-appearing calcifications are present. Scattered benign-appearing lymph nodes are present. RIGHT BREAST: No significant suspicious finding. LEFT BREAST: No significant suspicious finding. RECOMMENDATIONS: ROUTINE MAMMOGRAM AND CLINICAL EVALUATION IN 12 MONTHS. PLEASE NOTE: A NORMAL MAMMOGRAM DOES NOT EXCLUDE THE POSSIBILITY OFBREAST CANCER. A CLINICALLY SUSPICIOUS PALPABLE LUMP SHOULD BE BIOPSIED. Dictated by: Mario Ulloa MD on 10/09/2022 at 10:39 Approved by: Mario Ulloa MD on 10/09/2022 at 10:44 us Forest Torres DO IMG BI PROCEDURES Final Result from Last 3 Months or Most Recently Relevant to Health Maintenance Insurance [employer] Care Teams Ultrasound Tech Relationship Specialty Start Date End Date Macho Finney MD [address] [place] [address] PCP - General Family Medicine 02/02/23
== END 2025-02-08 08:48 | disposition home or self-care (01) ==
LOC: MAMMO 08:47
PROVIDERS: PCP Family Medicine; Visit Provider Physician Assistant
DX: Z12.31 Encounter for screening mammogram for malignant neoplasm of breast (principal); Z78.0 Asymptomatic menopausal state; Z80.3 Family history of malignant neoplasm of breast; M85.80 Other specified disorders of bone density and structure, unspecified site
CPT/HCPCS: 77063; 77067; 77080